=== PATIENT | female | born 1945 | race Caucasian/White ===

== ENCOUNTER 2023-03-03 13:47 | Outpatient (RCR) | payer MEDICARE, OTHER, SELFPAY | END 2023-03-03 23:59 | disposition home or self-care (01) | LOC: RPT 13:47 | PROVIDERS: ATTENDING PHYSICIAN Physician Assistant; FAMILY PHYSICIAN Nurse Practitioner Family | DX: Z47.1 Aftercare following joint replacement surgery (principal); Z96.651 Presence of right artificial knee joint | CPT/HCPCS: 97110; 97112; 97116; 97162; 97530 ==

== ENCOUNTER 2023-04-07 15:13 | Outpatient (RCR) | payer MEDICARE, OTHER, SELFPAY | END 2023-04-07 23:59 | disposition home or self-care (01) | LOC: RPT 15:13 | PROVIDERS: ATTENDING PHYSICIAN Physician Assistant; FAMILY PHYSICIAN Nurse Practitioner Family | DX: Z47.1 Aftercare following joint replacement surgery (principal); Z73.6 Limitation of activities due to disability; R26.2 Difficulty in walking, not elsewhere classified; M62.81 Muscle weakness (generalized); Z96.651 Presence of right artificial knee joint | CPT/HCPCS: 97110; 97112; 97530 ==

== ENCOUNTER 2023-04-21 15:07 | Outpatient (RCR) | payer MEDICARE, OTHER, SELFPAY | END 2023-04-22 07:33 | disposition home or self-care (01) | LOC: RPT 15:07 | PROVIDERS: ATTENDING PHYSICIAN Physician Assistant; FAMILY PHYSICIAN Nurse Practitioner Family | DX: Z47.1 Aftercare following joint replacement surgery (principal); Z96.651 Presence of right artificial knee joint | CPT/HCPCS: 97110; 97530 ==

== ENCOUNTER 2023-08-15 13:57 | Emergency (ER) | payer MEDICARE, OTHER, SELFPAY ==
[2023-08-15 14:06] VITALS: BP 171/78
[2023-08-15 14:34] LABS: % Basophils 0.3 % (0-2); % Eosinophils 0.7 % (0-6); % Immature Granulocytes 0.2 % (0-0.5); % Lymphocytes 8.3 % (20.5-51.1); % Monocytes 6.5 % (1.7-9.3); Absolute Eosinophils 0.1 10^3/uL (0-0.7); Absolute Lymphocytes 0.7 10^3/uL (1.2-3.4); Absolute Monocytes 0.6 10^3/uL (0.1-0.6); Absolute Neutrophils 7.3 10^3/uL (1.4-6.5); Hematocrit 44.3 % (37.0-47.0); Hemoglobin 15.1 g/dL (12.0-16.0); Mean Corp Hgb Conc. 34.1 g/dL (33.0-37.0); Mean Corpuscular Hgb 30.6 pg (27.0-31.0); Mean Corpuscular Volume 89.9 fL (81.0-99.0); Mean Platelet Volume 10.4 fL (7.4-10.4); Nucleated Red Blood Cells % 0 %; Platelet Count 187 10^3/uL (130-400); Red Blood Cell Count 4.93 10^6/uL (4.20-5.40); Red Cell Dist. Width 13.7 % (11.5-14.5); White Blood Cell Count 8.7 10^3/uL (4.8-10.8)
[2023-08-15 14:44] LABS: ALT (SGPT) 32 U/L (0-35); AST (SGOT) 33 U/L (14-36); Albumin 4.4 g/dl (3.5-5.0); Alkaline Phosphatase 88 U/L (38-126); Blood Urea Nitrogen 21 mg/dl (7-17); Calcium 9.4 mg/dl (8.4-10.2); Carbon Dioxide 32 mmol/L (22-30); Chloride 94 mmol/L (98-107); Glucose 90 mg/dl (70-99); Potassium 4.7 mmol/L (3.5-5.1); Sodium 132 mmol/L (135-145); Total Bilirubin 0.7 mg/dl (0.2-1.3); Total Protein 6.6 g/dl (6.3-8.2); eGFR > 60.00
[2023-08-15 17:00] VITALS: BP 138/74
[2023-08-15 17:10] VITALS: BMI 41.0
--- NOTE | 2023-08-15 17:31 | ED.GENMED ---
History of Present Illness
General
Chief Complaint: Dizziness
Source: patient
Time Seen by Provider: 08/15/23 17:16
History of Present Illness
History of Present Illness:
77yoF with a history of coronary artery disease, heart block s/p pacemaker placement, CHF, HTN, HLD, and COPD presenting with her daughter for evaluation of dizziness. Symptoms started after she ate lunch yesterday. She started to feel shaky and
lightheaded with a 'funny feeling.' She denies any chest pain but she decided to take aspirin. Symptoms lasted for several hours before resolving. She took a nap later in the day and had transient double vision after waking up. She has no visual
symptoms currently. She had another episode of shakiness and dizziness after eating breakfast this morning. Her dizziness has currently resolved and her only current symptom is a headache which she rates as a 6/10 in severity. She denies any syncope
or falls.
Past History
Past History
ED Past Medical History: CAD and HTN
ED Past Surgical History: Cardiac (, stent AVR), Cholecystectomy, Gynecological (hyster), Orthopedic (wrist) and Other (hernia reapir)
Social History
Tobacco: Former smoker
Alcohol: None
Drug: None
Personal: Single
Living: with family (son)
Employment: Retired
Family History
Family History: Other (noncontributory)
Phy Exam
Physical Exam
Physical Exam:
Chronically ill appearing female in no acute distress
General Physical Exam
General Presentation: well appearing and no apparent distress
General Skin: warm and dry
General Mental: alert
General Hydration: appears well hydrated
Course
Orders/Labs/Results
Orders:
Orders
08/15/23 14:10
Electrocardiogram (*1) Urgent
Reason for Study: Vertigo / Dizzy
EKG- Treatment ONCE
08/15/23 14:22
CMP [Comprehensive Metabolic Panel] Urgent
Complete Blood Count/With Diff Urgent
08/15/23 17:30
Acetaminophen [Tylenol] 1,000 mg PO NOW STA
08/15/23 17:34
CR Chest - 2 Views Urgent
Comment:
Reason For Exam: Dizziness
08/15/23 17:35
CT Head W/o Iv Contrast Urgent
Comment:
Reason For Exam: Dizziness, ROBERT
08/15/23 17:41
Lipase Urgent
NT-proBNP Urgent
Comment: ADD ON
Troponin I Urgent
08/15/23 18:08
Add On- LAB Urgent
Tests Added?: BNP
08/15/23 20:04
Interrogate Pacemaker- Treatment ONCE
Abnormal Lab Results
08/15/23
14:22
Absolute Neuts (auto) 7.3 H 10^3/uL
(1.4-6.5)
Absolute Lymphs (auto) 0.7 L 10^3/uL
(1.2-3.4)
Neutrophils % 84.0 H %
(42.2-75.2)
Lymphocytes % 8.3 L %
(20.5-51.1)
Sodium 132 L mmol/L
(135-145)
Chloride 94 L mmol/L
(98-107)
Carbon Dioxide 32 H mmol/L
(22-30)
BUN 21 H mg/dl
(7-17)
08/15/23 14:22
08/15/23 14:22
Vital Signs
Initial and Last Documented VS:
Initial Vital Signs
Temp Pulse Resp BP Pulse Ox
98.4 F 73 20 171/78 93
08/15/23 14:06 08/15/23 14:06 08/15/23 14:06 08/15/23 14:06 08/15/23 14:06
Last Documented Vital Signs
Temp Pulse Resp BP Pulse Ox
98.4 F 77 24 182/95 92
08/15/23 14:06 08/15/23 20:45 08/15/23 20:45 08/15/23 19:00 08/15/23 20:45
MDM/Problems Addressed
Differential Diagnosis Includes:
77yoF here with multiple vague symptoms. C/o feeling shaky, lightheaded, and a 'funny feeling.' Occurred 2x after eating since yesterday. No CP/SOB. She is hypertensive with otherwise normal vitals. She is well appearing in no distress. Exam is
reassuring. Differential diagnosis includes but is not limited to: dehydration, ACS, electrolyte abnormality, arrhythmia
Initial ED plan: Check cardiac labs, EKG, CXR, and CT head. Interrogate pacemaker.
*Critical Care Note
Total Time (30-74mins, 75-104mins- exclusive of procedures): Not Applicable
Update Note
Update Note:
Labs overall unremarkable. EKG shows paced rhythm and troponin is within normal limits. CT head is negative for acute findings. No pulmonary edema on CXR. Pacemaker interrogation showed a 7 beat episode of nonsustained VT on 08/11/23. This was
discussed with lathe operator Dr. King who states that this would not account for her symptoms and does not require any additional intervention. Patient feeling well on reassessment. No indication for admission. Advised close f/u with PCP and ED
return precautions discussed. Patient expressed understanding and is agreeable to plan. Patient discharged in stable condition.
ED Attending Note
-
Portions of this chart may have been created with voice recognition software.� Occasional wrong word or��sound alike� substitutions may have occurred due to the inherent limitations of voice recognition software.
Discharge Plan
Departure
Patient Disposition: Home (Routine Discharge)
Date of Disposition: 08/15/23
Time of Disposition: 20:54
Patient with high blood pressure during this ER visit?: Yes
Discharge Problem:
Dizziness, nonspecific
Instructions: Dizziness
Prescriptions:
No Action
ascorbic acid (vitamin C) [Vitamin C] 500 MG tablet
1,000 mg PO DAILY Qty: 1 0RF
biotin 2,500 MCG capsule
5,000 mcg PO DAILY Qty: 1 0RF
cholecalciferol (vitamin D3) 2,000 UNITS tablet
2,000 unit PO DAILY Qty: 1 0RF
zinc acetate 50 mg (zinc) Capsule
50 mg PO DAILY
acetaminophen [Acetaminophen Extra Strength] 500 mg Tablet
1,000 mg PO Q6HPRN PRN (Reason: mild pain)
melatonin 5 mg Tablet
10 mg PO HS
multivitamin Tablet
1 tab PO DAILY
spironolactone 25 mg Tablet
25 mg PO MOWEFR
loratadine [Claritin] 10 mg Tablet
10 mg PO DAILY
aspirin 325 mg Tablet
325 mg PO DAILY 28 Days Qty: 28 0RF
Patient Comments:
12/15/2022: take for 4 weeks then decrease to 81mg daily
docusate sodium 100 mg Capsule
100 mg PO BID 7 Days Qty: 14 0RF
irbesartan 300 MG tablet
300 mg PO DAILY Qty: 1 0RF
Rx Instructions:
Hold if systolic BP less than 130 while in post surgical narcotics.
fluticasone propionate 50 mcg/actuation [place],Suspension
1 spray INTRANASAL DAILY PRN (Reason: nasal drip /allergies)
furosemide 40 MG tablet
40 mg PO DAILY Qty: 30 0RF
acyclovir 400 mg tablet
400 mg PO BID
tramadol 50 mg tablet
50 mg PO TIDPRN PRN (Reason: moderate pain)
Patient Comments:
12/15/2022: last filled 12/03/22, 21 tabs for 7 days from [id number]
oxycodone 5 mg tablet
5 mg PO Q6HPRN PRN (Reason: moderate pain)
Patient Comments:
12/15/2022: last filled 12/10/22, 30 tabs for 5 days from [id number]
guaifenesin 600 mg Tablet Extended Release 12hr
600 mg PO Q12 7 Days Qty: 14 0RF
albuterol sulfate [Ventolin HFA] 90 mcg/actuation HFA aerosol inhaler
2 puff inhalation Q6H PRN (Reason: shortness of breath or wheezing) 30 Days Qty: 6.7 0RF
Referrals:
Sadaf Piper CRNP [Family Provider] -
Activity Restrictions/Additional Instructions:
Please follow-up with your family doctor in 2-3 days. Return to the ER with any new or worsening symptoms.
Interventions
Interventions:
*Risk Screen - Suicide Last Done: 08/15/23 18:01
*General Assessment Last Done: 08/15/23 18:01
*Neglect/Abuse Screening Last Done: 08/15/23 18:01
ED- Fall Risk Assessment Last Done: 08/15/23 17:10
*Nursing Disposition Last Done: 08/15/23 21:10
ED- Neurological Assessment Last Done: 08/15/23 17:10
ED- Cardiac Assessment Last Done: 08/15/23 17:10
ED Swallowing Screen Last Done: 08/15/23 17:10
Discharge Date and Time
Discharge Date/Time: 08/15/23 21:11
Print Language: VIETNAMESE
[2023-08-15 18:14] LABS: Lipase 48 U/L (23-300)
[2023-08-15 18:25] LABS: Troponin I 0.024 ng/ml
[2023-08-15 18:26] VITALS: BP 180/80
[2023-08-15 18:28] VITALS: BP 165/77
[2023-08-15] MEDS: TYLENOL 1000 MG PO (18:29)
[2023-08-15 19:00] VITALS: BP 182/95
[2023-08-15 19:00] LABS: NT-proBNP 1760 pg/ml
== END 2023-08-15 21:11 | disposition home or self-care (01) ==
LOC: EMR 13:57
PROVIDERS: Emergency Medicine; Physician Assistant; EMERGENCY PHYSICIAN Emergency Medicine; FAMILY PHYSICIAN Nurse Practitioner Family
DX: R42 Dizziness and giddiness (principal); I25.10 Atherosclerotic heart disease of native coronary artery without angina pectoris; I45.9 Conduction disorder, unspecified; I11.0 Hypertensive heart disease with heart failure; I50.9 Heart failure, unspecified; E78.00 Pure hypercholesterolemia, unspecified; H53.2 Diplopia; Z87.891 Personal history of nicotine dependence; Z90.49 Acquired absence of other specified parts of digestive tract; Z95.0 Presence of cardiac pacemaker; Z95.5 Presence of coronary angioplasty implant and graft
CPT/HCPCS: 99284; 93280; 70450; 71046; 80053; 83690; 83880; 84484; 85025; 93005

== ENCOUNTER 2024-02-24 16:35 | Inpatient (IN) | payer MEDICARE, OTHER, SELFPAY ==
[2024-02-24 12:35] VITALS: BP 123/54
[2024-02-24 13:04] LABS: % Basophils 0.3 % (0-2); % Eosinophils 0.1 % (0-6); % Immature Granulocytes 0.5 % (0-0.5); % Lymphocytes 4.6 % (20.5-51.1); % Monocytes 11.5 % (1.7-9.3); Absolute Immature Granulocytes 0.1 10^3/uL (0-0.05); Absolute Lymphocytes 0.5 10^3/uL (1.2-3.4); Absolute Monocytes 1.2 10^3/uL (0.1-0.6); Absolute Neutrophils 8.8 10^3/uL (1.4-6.5); Hematocrit 40.3 % (37.0-47.0); Hemoglobin 13.3 g/dL (12.0-16.0); Mean Corpuscular Hgb 29.4 pg (27.0-31.0); Mean Platelet Volume 9.8 fL (7.4-10.4); Nucleated Red Blood Cells % 0 %; Platelet Count 221 10^3/uL (130-400); Red Blood Cell Count 4.53 10^6/uL (4.20-5.40); Red Cell Dist. Width 14.5 % (11.5-14.5); White Blood Cell Count 10.6 10^3/uL (4.8-10.8)
[2024-02-24 13:22] LABS: ALT (SGPT) 39 U/L (0-35); AST (SGOT) 35 U/L (14-36); Albumin 3.5 g/dl (3.5-5.0); Alkaline Phosphatase 97 U/L (38-126); Blood Urea Nitrogen 21 mg/dl (7-17); Calcium 8.3 mg/dl (8.4-10.2); Carbon Dioxide 30 mmol/L (22-30); Chloride 96 mmol/L (98-107); Glucose 105 mg/dl (70-99); Potassium 3.7 mmol/L (3.5-5.1); Sodium 133 mmol/L (135-145); Total Bilirubin 0.7 mg/dl (0.2-1.3); Total Protein 5.9 g/dl (6.3-8.2); eGFR > 60.00
[2024-02-24 13:33] LABS: NT-proBNP 2540 pg/ml; Troponin I 0.061 ng/ml
--- NOTE | 2024-02-24 13:55 | ED.GENMED ---
History of Present Illness
General
Chief Complaint: Abnormal Lab Value
Source: patient
Exam Limitations: none
Time Seen by Provider: 02/24/24 13:27
History of Present Illness
History of Present Illness:
78-year-old female with history of CHF, aortic stenosis, hypertension, pacemaker presents with increased leg edema swelling shortness of breath and dyspnea on exertion. Seen recently by the family doctor and sent in for evaluation. She had labs
drawn as an outpatient which demonstrated elevated BNP and troponin. She denies chest pain. She is not anticoagulated. Followed by a wire rigger at [place], Dr. Bailey.
Past History
Past History
ED Past Medical History: CAD and HTN
ED Past Surgical History: Cardiac (, stent AVR), Cholecystectomy, Gynecological (hyster), Orthopedic (wrist) and Other (hernia reapir)
Social History
Tobacco: Former smoker
Alcohol: None
Drug: None
Personal: Single
Living: with family (son)
Employment: Retired
Family History
Family History: Other (noncontributory)
Phy Exam
Physical Exam
Physical Exam:
General: Well-appearing obese female with increased work of breathing
HEENT: Normal cephalic atraumatic heart: Regular rate and rhythm no murmurs
Lungs: Clear no wheeze
Abdomen is soft nontender nondistended
Extremities: Significant pitting edema with chronic venous changes noted to the lower extremities. There is open wounds to the posterior calves.
Vascular: 2+ dorsalis pedis pulse bilateral feet
Musculoskeletal exam: Left heel is tender to the touch soft tissue swelling
Sepsis
Sepsis Screening
Sepsis Assessment: Sepsis Ruled Out
Sepsis Screen
Sepsis Screen: Sepsis Ruled Out
Date: 02/24/24
Time: 15:12
Course
Orders/Labs/Results
Orders:
Orders
02/24/24 12:33
Electrocardiogram (*1) Urgent
Reason for Study: Shortness of Breath
EKG- Treatment ONCE
02/24/24 12:42
Electrocardiogram (*1) Urgent
Reason for Study: Other
Other Reason for Exam: Respiratory Distress
Cardiac Monitoring- Treatment ONCE
EKG- Treatment ONCE
IV Insert/Care/Rem.- Treatment PRN
CR Chest - 2 Views Urgent
Comment:
Reason For Exam: respiratory distress
O2 Therapy [RESP] Urgent
Titrate/Wean O2 to maintain O2 sat greater than (%): 93
Special Instructions: TO MAINTAIN CONTINUOUS O2 SATS >/= 93%
Pulse Ox/cont/shift [RESP] Urgent
Quantity: 1
Special Instructions: continuous pulse ox
02/24/24 12:50
Complete Blood Count/With Diff Urgent
Comprehensive Metabolic Panel Urgent
NT-proBNP Urgent
Troponin I Urgent
02/24/24 13:46
CR Heel/os Calcis - Left 2 Vw* Urgent
Comment:
Reason For Exam: pain after fall
02/24/24 15:07
Acetaminophen [Tylenol] 650 mg PO NOW STA
Furosemide [Lasix] 40 mg IV NOW STA
Abnormal Lab Results
02/24/24
12:50
Abs Immat Gran (auto) 0.1 H 10^3/uL
(0-0.05)
Absolute Neuts (auto) 8.8 H 10^3/uL
(1.4-6.5)
Absolute Lymphs (auto) 0.5 L 10^3/uL
(1.2-3.4)
Absolute Monos (auto) 1.2 H 10^3/uL
(0.1-0.6)
Neutrophils % 83.0 H %
(42.2-75.2)
Lymphocytes % 4.6 L %
(20.5-51.1)
Monocytes % 11.5 H %
(1.7-9.3)
Sodium 133 L mmol/L
(135-145)
Chloride 96 L mmol/L
(98-107)
BUN 21 H mg/dl
(7-17)
Glucose 105 H mg/dl
(70-99)
Calcium 8.3 L mg/dl
(8.4-10.2)
ALT 39 H U/L
(0-35)
Troponin I 0.061 H* ng/ml
Total Protein 5.9 L g/dl
(6.3-8.2)
02/24/24 12:50
02/24/24 12:50
Vital Signs
Initial and Last Documented VS:
Initial Vital Signs
Temp Pulse Resp BP Pulse Ox
98 F 66 18 123/54 95
02/24/24 12:35 02/24/24 12:35 02/24/24 12:35 02/24/24 12:35 02/24/24 12:35
Last Documented Vital Signs
Temp Pulse Resp BP Pulse Ox
98 F 77 32 123/54 97
02/24/24 12:35 02/24/24 13:45 02/24/24 13:43 02/24/24 12:35 02/24/24 13:45
MDM/Problems Addressed
Differential Diagnosis Includes:
Patient with history of CHF presents with increased leg swelling dyspnea on exertion and shortness of breath. Consider CHF flare. She has been weak recently. 3 days ago she fell in her house and has been left with left heel pain since she fell.
Left heel x-rays were ordered. Chest x-ray pending. BNP elevated. Troponin is also elevated at 0.061.
I suspect main etiology is volume overload secondary to CHF.
*Critical Care Note
Total Time (30-74mins, 75-104mins- exclusive of procedures): Not Applicable
Update Note
Update Note:
Chest x-ray shows cardiomegaly. BNP is elevated troponin slightly elevated. Patient not having chest discomfort. Do not suspect ACS. Suspect more CHF flare. Lasix ordered through the IV. Will admit to hospital
ED Attending Note
-
Portions of this chart may have been created with voice recognition software.� Occasional wrong word or��sound alike� substitutions may have occurred due to the inherent limitations of voice recognition software.
Discharge Plan
Departure
Patient Disposition: Admit
Date of Disposition: 02/24/24
Time of Disposition: 15:11
Presentation/result/management discussed w/ accepting MD/DO: Hospitalist
Discharge Problem:
CHF (congestive heart failure)
Prescriptions:
No Action
acetaminophen [Acetaminophen Extra Strength] 500 mg Tablet
1,000 mg PO HSPRN PRN (Reason: mild pain)
melatonin 5 mg Tablet
10 mg PO HS
spironolactone 25 mg Tablet
25 mg PO MOWEFR
irbesartan 300 MG tablet
300 mg PO DAILY Qty: 1 0RF
furosemide 40 MG tablet
40 mg PO DAILY Qty: 30 0RF
tramadol 50 mg tablet
25 mg PO DAILYPRN PRN (Reason: moderate pain)
cephalexin 500 mg Capsule
500 mg PO BID
docusate sodium 100 mg capsule
100 mg PO BIDPRN PRN (Reason: constipation)
ibuprofen [Motrin] 400 mg Tablet
400 mg PO DAILYPRN PRN (Reason: mild pain)
Referrals:
Sadaf Piper CRNP [Family Provider] -
Interventions
Interventions:
*Risk Screen - Suicide Last Done: 02/24/24 12:35
*General Assessment Last Done: 02/24/24 12:35
*Neglect/Abuse Screening Last Done: 02/24/24 12:35
ED- Fall Risk Assessment Last Done: 02/24/24 13:36
*ED COVID-19 Vaccine History Last Done: 02/24/24 13:36
Discharge Date and Time
Print Language: IRANIAN
[2024-02-24] MEDS: LASIX 40 MG IV (15:16)
[2024-02-24] MEDS: TYLENOL 650 MG PO (15:16)
--- NOTE | 2024-02-24 15:50 | HPS.HSE ---
Family Physician
-
Family Physician: NATY Lind
Chief Complaint
-
shortness of breath
History of Present Illness
Ms. Yasmin Webster is a 78 yo woman with hx CHB s/p PPM 12/30, HFpEF, presents to the ER with increased LE swelling and shortness of breath.
She states that she has had worsening shortness of breath over the past month. She does not weigh herself every day. She denies missing Lasix doses. 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
She lives alone, uses a walker. She has bilateral lower extremity wounds and has a home wound care VN who suggested she come to the ER today.
Patient denies chest pain. No headache, no fevers. No nausea/vomiting/diarrhea. No adominal pain.
Medical History
Past Medical History
Past Medical History: Reports Other
Additional Past Medical History:
1. Osteoarthritis,
2. Hypertension.
3. Coronary artery disease/myocardial infarction, status post PCI
� � with complicated stent to LAD, 08/2020, with urgent
� � pericardiocentesis and small vessel distal embolization.
4. History of non-PR troponin elevation, secondary to hypertensive
� � urgency 08/2021.
5. Chronic left bundle branch block.
6. PVCs, asymptomatic.
7. Nonsustained ventricular tachycardia.
8. Congestive heart failure, preserved ejection fraction.
9. Severe aortic stenosis, status post bioprosthetic TAVR.
10. Chronic venous insufficiency with left lower extremity ulcer,
� � � 11/2021, treated by [facility].
11. Restrictive lung disease.
12. 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
� � � respiratory failure and tracheostomy with residual tracheal
� � � stenosis.
13. COVID-19 pneumonia 06/2021.
14. Chronic dyspnea on exertion.
15. GERD.
16. Peripheral neuropathy.
17. Uterine and vaginal prolapse, status post abdominal
� � � sacrocolpopexy 2010.
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
19. Right-sided Efrain syndrome.
Past Surgical History: Reports Other
Additional Past Surgical History:
. Left total knee arthroplasty
2. Left wrist open reduction internal fixation.
3. PCI with complicated LAD stent with urgent pericardiocentesis
� � and small vessel distal embolization.
4. Bioprosthetic TAVR.
5. Cholecystectomy.
6. Incisional hernia repair.
7. Hysterectomy.
8. Abdominal sacrocolpopexy.
9. Tracheostomy and subsequent removal.
10.right total knee replacement
Social History
Tobacco: Former Smoker
Alcohol: None
Drug: None
Personal: Single
Living: Alone
Employment: Retired
Family History
Family History: Not pertinent
Allergies / Home Medications
Allergies reflects when Allergies were last updated in [email or web address].
Home Medications with original date entered in [email or web address]
Allergy/Medication List:
Allergies
Allergy/AdvReac Type Severity Reaction Status Date / Time
ciprofloxacin Allergy tendon Verified 08/15/23 14:07
rupture
house dust Allergy sneezing, Verified 08/15/23 14:07
nasal
drip,
congestion
house dust mite Allergy sneezing, Verified 08/15/23 14:07
nasal
drip,
congestion
levofloxacin Allergy Tendon Verified 08/15/23 14:07
rupture
mold Allergy sneezing, Verified 08/15/23 14:07
nasal
drip,
congestion
moxifloxacin Allergy Tendon Verified 08/15/23 14:07
rupture
mupirocin Allergy Pharmacy Verified 08/15/23 14:07
to Review
pollen extracts Allergy sneezing, Verified 08/15/23 14:07
nasal
drip,
congestion
Quinolones Allergy Tendon Verified 08/15/23 14:07
rupture
Home Medications
acetaminophen 500 mg tablet (Acetaminophen Extra Strength) 1,000 mg PO HSPRN PRN mild pain 08/12/22
melatonin 5 mg tablet 10 mg PO HS Sleep 08/12/22
furosemide 40 mg tablet 40 mg PO DAILY #30 tabs 08/24/22
spironolactone 25 mg tablet 25 mg PO MOWEFR Fluid Retention/Swelling 10/29/22
irbesartan 300 mg tablet 300 mg PO DAILY Blood pressure #1 tab 11/28/22
tramadol 50 mg tablet 25 mg PO DAILYPRN PRN moderate pain 12/15/22
cephalexin 500 mg capsule 500 mg PO BID 02/24/24
docusate sodium 100 mg capsule 100 mg PO BIDPRN PRN constipation 02/24/24
ibuprofen 400 mg tablet 400 mg PO DAILYPRN PRN mild pain 02/24/24
Review of Systems
-
History Source: Patient
A 12 point ROS was completed and negative except as noted: Yes
Physical Exam
Vital Signs
Vital Signs
Temp Pulse Resp BP Pulse Ox
98 F 77 32 123/54 97
02/24/24 12:35 02/24/24 13:45 02/24/24 13:43 02/24/24 12:35 02/24/24 13:45
Physical Exam
General: No Apparent Distress and Obese
HEENT: PERRLA
Respiratory: Wheezes (end expiratory scattered)
Cardiac: S1/S2 and Regular Rhythm
GI: Soft and Non Tender
Musculoskeletal: Edema, Left Lower Extremity and Edema, Right Lower Extremity
Skin: Other (venous stasis discoloration with ulcers b/l LE )
Neuro: AO x 3
Psych: Calm
Laboratory Results
-
02/24/24 12:50
02/24/24 12:50
Laboratory Results
Total Bilirubin 0.7 mg/dl (0.2-1.3) 02/24/24 12:50
AST 35 U/L (14-36) 02/24/24 12:50
ALT 39 U/L (0-35) H 02/24/24 12:50
Alkaline Phosphatase 97 U/L (38-126) 02/24/24 12:50
Troponin I 0.061 ng/ml H* 02/24/24 12:50
Data Reviewed
-
Diagnostic Radiology: Report Reviewed by me
Lab Data: Labs Reviewed by me
Impression/Plan
-
Ms. Yasmin Webster is a 78 yo woman with hx CHB s/p PPM 12/30, HFpEF, s/p TAVR presents to the ER with increased LE swelling and shortness of breath found to be in acute heart failure exacerbation.
Triage VS: T 98, P 66, RR 18, BP 123/54, SpO2 95%
LABS: WBC 10.6, Hg 13.3, PLT 221, Na 133, K+ 3.7, Cl 96, CO2 30, BUN 21, Cr 0.6, Glucose 105, Ca 8.3, T. Bili 0.7, AST 35, ALT 39, Alk Phos 97
Trop 0.061
BNP 2540
CXR
IMPRESSION:
No acute cardiopulmonary process.
Os Calcis X-Ray
IMPRESSION:
No acute fracture or dislocation. Moderate plantar and dorsal calcaneal enthesopathy, similar to prior. Scattered degenerative changes of the visualized joints. Vascular calcifications present.
Heart Failure Preserved EF Acute Exacerbation
Non Ischemic Troponin Elevation
Essential HTN
-she is on Lasix 40mg PO QD at home
-last TTE 08/29 with EF 60-65%, well seated TAVR with trace AR
-s/p Lasix 40mg IV in ER, will continue BID
-admit to telemetry
-repeat TTE
-trend Troponin
-TELETYPESETTER MONITOR Spironolactone
-TELETYPESETTER MONITOR Irbesartan
RLE Cellulitis versus venous stasis
-complete TELETYPESETTER MONITOR Keflex course - to end tomorrow
CHB s/p PPM 12/30
s/p TAVR
-repeat TTE as above
DVT PPx Lovenox subQ
DNR - confirmed on admission
76 minutes spent on patient care
--- NOTE | 2024-02-24 16:25 | CON.CAR ---
Addendum entered and electronically signed by Julio Cesar Leyva MD 02/24/24 18:08:
I saw and examined the patient.
The Mortgage Loan Reviewer's note was reviewed and I agree with the note.
Comment: Briefly, 78-year-old woman past medical history of heart failure with preserved ejection fraction, s/p TAVR, CAD with prior PCI and CHB s/p PPM
Patient presents with progressively worsening lower extremity edema, weight gain and dyspnea
Tense LE edema on exam with overlying skin ulceration
Recommend IV lasix BID
Cont Aldactone
Follow daily weights, Cr and electrolytes
Repeat TTE
Tells me she was previously on 40mg daily of lasix, will likely need higher dose on discharge
Due to leg wounds likely not a good candidate for SGLT2
Rest per Mickie Carpenter
Original Note:
Consultation
Consultation Request
Date/Time Consultation Requested: 02/24/2024, 1615
Date/Time Consultation Performed: 02/24/2024, 1625
Requesting Provider: Dr Patton
Performing Provider: NATY Wesley for Dr Leyva
Reason for Consultation: LE edema, SOB
Medical History
-
Chief Complaint: dizzy/sob
History of Present Illness:
78-year-old female with complicated past medical history including CAD/[place], s/p PCI w/ complicated stent to LAD 08/2020, with urgent pericardiocentesis w/ small vessel distal embolization, HFpEF, left bundle branch block, s/p TAVR 2010, coronary
artery disease, SVT, hypertension, complete heart block 12/2022 s/p Medtronic dual chamber pacemaker utilizing LBBB for conduction system pacing, restrictive lung disease, left total knee arthroplasty November,, chronic venous insufficiency.
She presents today with worsening shortness of breath and increasing LE edema. She has B/L LE wounds and follows with home wound care. She does not weigh herself daily and is not sure if she has gained weight. Was supposed to have appointment
with her radiology transporter, Dr. Jacob Bailey, this week but could not get out of the house so rescheduled.
Admits to orthopnea, PND. No fevers, chills. No palps, lightheadedness, syncope. No chest pain
ER evaluation:
EKG: A sensed V paced
BUN/creatinine 21/0.6, proBNP 2540, hemoglobin 13.3
Troponin 0.061
Chest x-ray: No acute cardiopulmonary process, no overt pulmonary vascular congestion
Current Meds per Dr. Bailey last office visit note: Spironolactone 25 mg 3 times a week, irbesartan 300 mg daily, furosemide 40 mg daily.
Pacemaker interrogation 07/14/2023: 99% V paced, 0.4% a paced. No A-fib, brief high ventricular rate events consistent with nonsustained VT less than 2 seconds. Battery longevity 11.5 years
Past medical history:
CAD status post complicated LAD PCI 09/03/2020
Urgent pericardiocentesis and small vessel distal embolization 09/03/2020
Chronic heart failure preserved EF
Left transfemoral TAVR 26 mm Baumann BJ 3 ultra for severe 12/04/2020
Heart block with A-V dissociation status post TAVR
Complete heart block with new right bundle branch block status post Medtronic dual-chamber pacemaker utilizing left bundle branch for conduction system pacing 12/16/2022
Nonsustained VT/left bundle branch block
Legionella PNA 02/2018 w/ VDRF and trach w/ residual tracheal stenosis
chronic venous stasis
Efrain syndrome
OA s/p R TKA 11/2022
HTN
hyperlipidemia
obesity
former smoker
Past Medical History
Past Medical History: Arrhythmias (Supraventricular tachycardia, left bundle branch block, NSVT), CAD (Complex proximal LAD PCI complicated by wire perforation, treated successfully with pericardial drain and coil embolization 2020), CHF (Chronic
heart failure with preserved ejection fraction), HTN, Hypercholesterolemia, Valvular Disease (Status post Baumann BJ S3 TAVR #26 2020) and Other (History of legionnaires pneumonia. History of tracheostomy 2018)
Past Surgical History: Cardiac (TAVR 2020) and Orthopedic (RTKA 11/29)
Social History
Tobacco: Non-Smoker
Alcohol: None
Drug: None
Living: With Family
Employment: Retired
Family History
Family History: CAD and Hypertension
Allergies / Home Medications
Allergy/AdvReac Type Severity Reaction Status Date / Time
ciprofloxacin Allergy tendon Verified 08/15/23 14:07
rupture
house dust Allergy sneezing, Verified 08/15/23 14:07
nasal
drip,
congestion
house dust mite Allergy sneezing, Verified 08/15/23 14:07
nasal
drip,
congestion
levofloxacin Allergy Tendon Verified 08/15/23 14:07
rupture
mold Allergy sneezing, Verified 08/15/23 14:07
nasal
drip,
congestion
moxifloxacin Allergy Tendon Verified 08/15/23 14:07
rupture
mupirocin Allergy Pharmacy Verified 08/15/23 14:07
to Review
pollen extracts Allergy sneezing, Verified 08/15/23 14:07
nasal
drip,
congestion
Quinolones Allergy Tendon Verified 08/15/23 14:07
rupture
�Medication �Instructions �Recorded �Confirmed �Type
acetaminophen 500 mg tablet 1,000 mg PO HSPRN PRN mild pain 08/12/22 02/24/24 History
(Acetaminophen Extra Strength)
melatonin 5 mg tablet 10 mg PO HS Sleep 08/12/22 02/24/24 History
furosemide 40 mg tablet 40 mg PO DAILY #30 tabs 08/24/22 02/24/24 Rx
spironolactone 25 mg tablet 25 mg PO MOWEFR Fluid 10/29/22 02/24/24 History
Retention/Swelling
irbesartan 300 mg tablet 300 mg PO DAILY Blood pressure #1 11/28/22 02/24/24 Rx
tab
tramadol 50 mg tablet 25 mg PO DAILYPRN PRN moderate pain 12/15/22 02/24/24 History
cephalexin 500 mg capsule 500 mg PO BID 02/24/24 02/24/24 History
docusate sodium 100 mg capsule 100 mg PO BIDPRN PRN constipation 02/24/24 02/24/24 History
ibuprofen 400 mg tablet 400 mg PO DAILYPRN PRN mild pain 02/24/24 02/24/24 History
Review of Systems
-
History Source: Patient
Constitutional: No Symptoms
Physical Exam
Vital Signs
Temp Pulse Resp BP Pulse Ox
98 F 77 32 123/54 97
02/24/24 12:35 02/24/24 13:45 02/24/24 13:43 02/24/24 12:35 02/24/24 13:45
Lab Results
02/24/24 12:50
02/24/24 12:50
Troponin I 0.061 ng/ml H* 02/24/24 12:50
Axu-T-Bkncqvihgag Pept 2540 pg/ml 02/24/24 12:50
GEN: No distress, awake, Ox3
HEENT: supple, anicteric, mmm
LUNGS: Faint expiratory wheeze
CV: Reg, S1/S2, 1/6 syst LSB
ABD: soft, BS+, NT/ND
EXT: 3+ lower extremity edema to thighs, venous stasis color changes, large wound right lateral hayden with serous sanguinous drainage. Feet warm
NEURO: Gross non-focal
Impression / Plan
-
Primary Back Shoe Cutter: Dr. Bailey of [facility]
Assessment:
acute on chronic HF p EF
chronic venous insufficiency w/ profound LE edema and RLE wound
s/p Medtronic dual-chamber permanent pacemaker utilizing the left bundle branch for conduction system pacing 12/16/2022 due to CHB
RBBB
OA s/p R TKA 11/25/22
hx NSVT/LBBB
s/p left Transfemoral TAVR 26mm Baumann Bj 3 Ultra for severe on 12/04/20
h/o heart block with A-V dissociation s/p TAVR
CAD s/p complicated LAD PCI 09/03/20
h/o urgent pericardiocentesis and small vessel distal embolization 09/03/20
HTN
HLD
History of NSVT by prior holter monitor
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
History of Gastrostomy
Peripheral neuropathy
Former smoker
Chronic back pain
History of Hysterectomy
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
Osteoarthritis of B/L knees s/p L TKR 08/2021
Obesity
Efrain syndrome
Lexiscan stress test at [facility]: Mild apical ischemia, preserved EF, intermediate risk
Echo 08/29: EF 60-65%, status post #26 TAVR R with mean gradient of 10, trace aortic regurgitation, trace TR with PA pressure 43
Plan:
- She presents today 02/24/2024 with worsening shortness of breath and increasing LE edema. She has B/L LE wounds and follows with home wound care. She does not weigh herself daily and is not sure if she has gained weight. Was supposed to have
appointment with her radiology transporter, Dr. Jacob Bailey, this week but could not get out of the house due to immobility from LE edema.
Admits to orthopnea, PND. No fevers, chills. No palps, lightheadedness, syncope. No chest pain
EKG: A sensed, Vpaced
-Appears volume overloaded with significant lower extremity edema, wounds, and elevated BNP
-IV diuresis, Lasix 40 mg IV twice daily
-Daily weights
-Continue outpatient spironolactone, irbesartan
-Trend troponin
-Eventual repeat echo, does not have to be done over the weekend
-Treatment for right lower extremity cellulitis per primary team
-Wound care consult
Data Reviewed
-
EKG: Tracing Personally Visualized and interpreted
Labs: Labs Reviewed by me
[2024-02-24] MEDS: ULTRAM 25 MG PO ×2 (16:31→18:02)
[2024-02-24] MEDS: LOVENOX 40 MG SC (17:54)
[2024-02-24] MEDS: KEFLEX 500 MG PO ×2 (17:54→21:02)
[2024-02-24 18:10] VITALS: BP 131/72
[2024-02-24 18:11] VITALS: BMI 40.6
[2024-02-24 18:39] LABS: TSH Reflex To Free T4 2.49 uIU/ml (0.47-4.68)
[2024-02-24] MEDS: ULTRAM 50 MG PO (19:42)
[2024-02-24 19:44] VITALS: BP 122/64
[2024-02-24] MEDS: MELATONIN 10 MG PO (21:02)
[2024-02-24 21:58] LABS: Troponin I 0.055 ng/ml
[2024-02-24 23:52] VITALS: BP 129/65
[2024-02-25 03:30] VITALS: BP 121/59
[2024-02-25 05:17] LABS: Troponin I 0.041 ng/ml
[2024-02-25 05:53] VITALS: BMI 41.0
[2024-02-25] MEDS: ULTRAM 50 MG PO ×3 (06:42→22:53)
[2024-02-25 07:30] VITALS: BP 117/49
[2024-02-25 10:26] LABS: ALT (SGPT) 41 U/L (0-35); AST (SGOT) 40 U/L (14-36); Alkaline Phosphatase 96 U/L (38-126); Blood Urea Nitrogen 18 mg/dl (7-17); Calcium 7.9 mg/dl (8.4-10.2); Carbon Dioxide 34 mmol/L (22-30); Chloride 93 mmol/L (98-107); Estimated Creatinine Clearance 93 ml/min; Glucose 101 mg/dl (70-99); HDL Cholesterol 45 mg/dl; LDL Cholesterol, Calculated 66 mg/dl; Potassium 3.6 mmol/L (3.5-5.1); Sodium 132 mmol/L (135-145); Total Bilirubin 0.7 mg/dl (0.2-1.3); Total Cholesterol 123 mg/dl (50-199); Total Protein 5.4 g/dl (6.3-8.2); Triglyceride 64 mg/dl (10-149); Very Low Density Lipoprotein 12 mg/dl (0-30); eGFR > 60.00
[2024-02-25] MEDS: LASIX 40 MG IV (11:17)
[2024-02-25] MEDS: AVAPRO 300 MG PO (11:17)
[2024-02-25] MEDS: KEFLEX 500 MG PO (11:17)
[2024-02-25 11:44] VITALS: BP 133/64
--- NOTE | 2024-02-25 13:31 | CM ---
Patient seen bedside, initial assessment completed. Patient resides independently in an apartment (first floor), one step to enter. Patient has a walker at home, current with [facility]. Patient currently on O2, does not have home O2. Patient reports [facility] in past. Patient confirms PCP Sadaf Piper, pharmacy [facility], confirms prescription coverage. Patient may benefit from PT evaluations. CM will continue to follow for all discharge planning needs.
Plan; home with [facility], pt may benefit from PT evals
--- NOTE | 2024-02-25 13:34 | W.PN.HOSP.TC ---
Today's Communication/Plan
-
Abx, wound culture, wound care
IV Lasix continues
Assessment / Plan
Assessment / Plan
Assessment:
Acute on chronic HFpEF
Non Ischemic Troponin Elevation
Essential HTN
-she is on Lasix 40mg PO QD at home
-last TTE 08/29 with EF 60-65%, well seated TAVR with trace AR
-s/p Lasix 40mg IV in ER, will continue BID
-follow telemetry
-repeat TTE routinely
-trend Troponin
-TIN RECOVERY WORKER Spironolactone
-TIN RECOVERY WORKER Irbesartan
bilateral venous stasis with ulcerations
RLE cellulitis > LLE cellulitis
- check wound culture, MRSA swab
- wound care ordered; formal eval Tuesday
- start Ancef/Doxy, day 1
CHB s/p PPM 12/30
s/p TAVR
-repeat TTE routinely
DVT ppx: Lovenox
Code: DNR
Anticipated Discharge: > 48 hours
Subjective/Interval History
-
Date of Service: February 25, 2024
reports bilateral leg/foot pains from wounds, chronic heel pain
Objective Data
-
Labs:
Laboratory Results
02/25/24 02/25/24
06:25 09:47
Sodium Cancelled 132 L
Potassium Cancelled 3.6
Chloride Cancelled 93 L
Carbon Dioxide Cancelled 34 H
BUN Cancelled 18 H
Creatinine Cancelled 0.5 L
Glucose Cancelled 101 H
Calcium Cancelled 7.9 L
Total Bilirubin Cancelled 0.7
AST Cancelled 40 H
ALT Cancelled 41 H
Alkaline Phosphatase Cancelled 96
Vital Signs:
Vital Signs
Temp Pulse Resp BP Pulse Ox
97.7 F 69 18 133/64 92
02/25/24 11:44 02/25/24 11:44 02/25/24 11:44 02/25/24 11:44 02/25/24 11:44
I&O
02/24/24 02/25/24 02/26/24
06:59 06:59 06:59
Intake Total 480 / 480
Output Total 500 / 500
Balance -20 / -20
Physical Exam
-
General: No Apparent Distress
HEENT: Normocephalic and Atraumatic
Respiratory: Negative Wheezes
Cardiac: Regular Rhythm
GI: Other (bilateral posterior calf wounds, pus drainage)
Genito-urinary: No Costovertebral Tender
Musculoskeletal: Edema, Right Lower Extrem and Edema, Left Lower Extrem
Neuro: AO x 3
Hematologic / Lymphatic: No Lymphadenopathy
Psych: Calm
Data Reviewed
-
Total Time Spent with Patient (in minutes): 51
Labs: Labs Reviewed by me
[2024-02-25] MEDS: ANCEF 5 IV ×2 (14:37→22:54)
--- NOTE | 2024-02-25 14:38 | W.PN.CARDCBS ---
Today's Communication / Plan
-
Intensify diuretics
Impression / Plan
-
Primary Rn Relief Charge: Dr. Bailey of [facility]
Assessment:
acute on chronic HF p EF
chronic venous insufficiency w/ profound LE edema and RLE wound
s/p Medtronic dual-chamber permanent pacemaker utilizing the left bundle branch for conduction system pacing 12/16/2022 due to CHB
RBBB
OA s/p R TKA 11/25/22
hx NSVT/LBBB
s/p left Transfemoral TAVR 26mm Baumann Bj 3 Ultra for severe on 12/04/20
h/o heart block with A-V dissociation s/p TAVR
CAD s/p complicated LAD PCI 09/03/20
h/o urgent pericardiocentesis and small vessel distal embolization 09/03/20
HTN
HLD
History of NSVT by prior holter monitor
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
History of Gastrostomy
Peripheral neuropathy
Former smoker
Chronic back pain
History of Hysterectomy
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
Osteoarthritis of B/L knees s/p L TKR 08/2021
Obesity
Efrain syndrome
Lexiscan stress test at [facility]: Mild apical ischemia, preserved EF, intermediate risk
Echo 08/29: EF 60-65%, status post #26 TAVR R with mean gradient of 10, trace aortic regurgitation, trace TR with PA pressure 43
Plan:
- She presents today 02/24/2024 with worsening shortness of breath and increasing LE edema. She has B/L LE wounds and follows with home wound care. She does not weigh herself daily and is not sure if she has gained weight. Was supposed to have
appointment with her executive administrative assistant, Dr. Jacob Bailey, this week but could not get out of the house due to immobility from LE edema.
Admits to orthopnea, PND. No fevers, chills. No palps, lightheadedness, syncope. No chest pain
EKG: A sensed, Vpaced
Regarding heart failure with preserved ejection fraction and acute decompensation:
Still volume overloaded with significant lower extremity edema, wounds, and elevated BNP (proBNP this admission 2540, was 1760 in August 2023)
With IV diuresis, Lasix 40 mg IV twice daily there has been minimal negative fluid balance, weight is up today.
Will increase Lasix to 80 mg IV twice daily with PM dose 02/25/24, l follow renal function, electrolytes and blood pressure closely
Continue outpatient spironolactone, irbesartan
There has been non-PA related minimal troponin elevation, flat this admission
Eventual repeat echo, does not have to be done over the weekend
Treatment for right lower extremity cellulitis per primary team and wound care consult
Progress Note - Rn Relief Charge
Subjective
Date of Service: February 25, 2024
She tells me that she feels her breathing is slightly improved. She admits she is not getting much activity.
Objective
Labs:
02/24/24 12:50
02/25/24 09:47
Labs
Hgb 13.3 g/dL (12.0-16.0) 02/24/24 12:50
Hct 40.3 % (37.0-47.0) 02/24/24 12:50
Plt Count 221 10^3/uL (130-400) 02/24/24 12:50
Sodium 132 mmol/L (135-145) L 02/25/24 09:47
Potassium 3.6 mmol/L (3.5-5.1) 02/25/24 09:47
BUN 18 mg/dl (7-17) H 02/25/24 09:47
Creatinine 0.5 mg/dL (0.6-1.0) L 02/25/24 09:47
Glucose 101 mg/dl (70-99) H 02/25/24 09:47
Troponins
02/24/24 02/24/24 02/24/24
12:50 19:00 21:25
Troponin I 0.061 H* Cancelled 0.055 H*
02/25/24
04:18
Troponin I 0.041 H* D
Vital Signs and I&O:
Vital Signs
Temp Pulse Resp BP Pulse Ox
97.7 F 69 18 133/64 92
02/25/24 11:44 02/25/24 11:44 02/25/24 11:44 02/25/24 11:44 02/25/24 11:44
Vital Signs
Temp Pulse Resp BP Pulse Ox
97.7 F 69 18 133/64 92
02/25/24 11:44 02/25/24 11:44 02/25/24 11:44 02/25/24 11:44 02/25/24 11:44
Intake & Output
02/23/24 02/24/24 02/25/24 02/26/24
06:59 06:59 06:59 06:59
Intake Total 480 / 480
Output Total 500 / 500
Balance -20 / -20
Physical Exam
Physical Exam
Morbidly obese
Regular rate and rhythm normal S1 and S2 no S3 no S4 grade 1/6 apical stock murmur no rubs
Lungs inspiratory effort, reduced breath sounds at both bases, no rales or rhonchi, no wheezes
Abdomen is obese soft nontender nondistended normal bowel sounds
Extremities +4 pitting edema bilateral lower extremities with chronic venous stasis changes, brawny skin
[2024-02-25] MEDS: KEFLEX PO (15:00)
[2024-02-25 15:59] VITALS: BP 112/59
[2024-02-25] MEDS: LASIX 80 MG IV (17:17)
[2024-02-25] MEDS: LOVENOX 40 MG SC (17:18)
[2024-02-25 19:15] VITALS: BP 122/56
[2024-02-25] MEDS: VIBRAMYCIN 100 MG PO (20:52)
[2024-02-25] MEDS: TYLENOL 1000 MG PO (20:52)
[2024-02-25] MEDS: MELATONIN 10 MG PO (22:53)
[2024-02-25 23:30] VITALS: BP 115/55
[2024-02-26] VITALS (7 sets, daily range): BP systolic 117–135; BP diastolic 54–74; BMI 40.9
[2024-02-26] MEDS: ANCEF 5 IV ×3 (05:21→20:50)
[2024-02-26] MEDS: COLACE 100 MG PO (05:22)
[2024-02-26 08:12] LABS: Hematocrit 36.2 % (37.0-47.0); Hemoglobin 11.9 g/dL (12.0-16.0); Mean Corp Hgb Conc. 32.9 g/dL (33.0-37.0); Mean Corpuscular Hgb 29.8 pg (27.0-31.0); Mean Corpuscular Volume 90.5 fL (81.0-99.0); Mean Platelet Volume 10.7 fL (7.4-10.4); Platelet Count 203 10^3/uL (130-400); Red Cell Dist. Width 14.6 % (11.5-14.5)
[2024-02-26 08:43] LABS: Blood Urea Nitrogen 29 mg/dl (7-17); Calcium 7.8 mg/dl (8.4-10.2); Carbon Dioxide 35 mmol/L (22-30); Chloride 89 mmol/L (98-107); Estimated Creatinine Clearance 93 ml/min; Glucose 102 mg/dl (70-99); Magnesium 2.1 mg/dl (1.6-2.3); Potassium 3.7 mmol/L (3.5-5.1); Sodium 130 mmol/L (135-145); eGFR > 60.00
[2024-02-26] MEDS: ULTRAM 50 MG PO ×2 (09:12→18:09)
[2024-02-26] MEDS: VIBRAMYCIN 100 MG PO ×2 (09:12→20:50)
[2024-02-26] MEDS: AVAPRO 300 MG PO (09:12)
[2024-02-26] MEDS: LASIX 80 MG IV ×2 (09:13→17:32)
--- NOTE | 2024-02-26 11:59 | W.PN.HOSP.TC ---
Today's Communication/Plan
-
Abx, wound culture, wound care
IV Lasix continues
Assessment / Plan
Assessment / Plan
Assessment:
Acute on chronic HFpEF
Non Ischemic Troponin Elevation
Essential HTN
-she is on Lasix 40mg PO QD at home
-last TTE 08/29 with EF 60-65%, well seated TAVR with trace AR
-continue IV Lasix BID - requires intensive monitoring of I/Os, Weights, Lytes
-follow telemetry
-repeat TTE routinely Tuesday
-trend Troponin
-MANAGER SITE Spironolactone
-MANAGER SITE Irbesartan
bilateral venous stasis with ulcerations
RLE cellulitis > LLE cellulitis
- check wound culture, MRSA swab
- wound care ordered; formal eval Tuesday
- continue Ancef/Doxy, day 2
CHB s/p PPM 12/30
s/p TAVR
-repeat TTE routinely
DVT ppx: Lovenox
Code: DNR
Anticipated Discharge: > 48 hours
Subjective/Interval History
-
Date of Service: February 26, 2024
Objective Data
-
Labs:
Laboratory Results
02/26/24
06:11
WBC 9.0
Hgb 11.9 L
Hct 36.2 L
Plt Count 203
Sodium 130 L
Potassium 3.7
Chloride 89 L
Carbon Dioxide 35 H
BUN 29 H
Creatinine 0.6
Glucose 102 H
Calcium 7.8 L
Vital Signs:
Vital Signs
Temp Pulse Resp BP Pulse Ox
97.8 F 65 22 127/74 96
02/26/24 07:30 02/26/24 09:12 02/26/24 07:30 02/26/24 09:12 02/26/24 07:30
I&O
02/25/24 02/26/24 02/27/24
06:59 06:59 06:59
Intake Total 480 / 480 1080 / 1080
Output Total 500 / 500 2049
Balance -20 / -20 -970 / -970
Physical Exam
-
General: No Apparent Distress
HEENT: Normocephalic and Atraumatic
Respiratory: Clear to Auscultation; Negative Wheezes
Cardiac: Regular Rhythm
GI: Soft
Genito-urinary: No Costovertebral Tender
Musculoskeletal: Edema, Right Lower Extrem and Edema, Left Lower Extrem
Neuro: AO x 3
Psych: Calm
Data Reviewed
-
Total Time Spent with Patient (in minutes): 52
Labs: Labs Reviewed by me
[2024-02-26] MEDS: LOVENOX 40 MG SC (17:32)
[2024-02-26] MEDS: MIRALAX 17 GRAMS PO (18:09)
[2024-02-26] MEDS: SENOKOT-S PO (20:50)
[2024-02-26] MEDS: MELATONIN 10 MG PO (21:11)
[2024-02-27] VITALS (7 sets, daily range): BP systolic 124–144; BP diastolic 60–69; PULSE 72; O2SAT 92; BMI 40.2
[2024-02-27] MEDS: ANCEF 5 IV ×3 (05:28→21:48)
[2024-02-27 07:33] LABS: Hematocrit 37.7 % (37.0-47.0); Hemoglobin 12.6 g/dL (12.0-16.0); Mean Corp Hgb Conc. 33.4 g/dL (33.0-37.0); Mean Corpuscular Hgb 29.6 pg (27.0-31.0); Mean Corpuscular Volume 88.5 fL (81.0-99.0); Mean Platelet Volume 9.9 fL (7.4-10.4); Platelet Count 232 10^3/uL (130-400); Red Blood Cell Count 4.26 10^6/uL (4.20-5.40); Red Cell Dist. Width 14.1 % (11.5-14.5); White Blood Cell Count 8.5 10^3/uL (4.8-10.8)
[2024-02-27 07:55] LABS: Blood Urea Nitrogen 25 mg/dl (7-17); Calcium 8.3 mg/dl (8.4-10.2); Carbon Dioxide 37 mmol/L (22-30); Chloride 87 mmol/L (98-107); Estimated Creatinine Clearance 92 ml/min; Glucose 113 mg/dl (70-99); Potassium 3.6 mmol/L (3.5-5.1); Sodium 131 mmol/L (135-145); eGFR > 60.00
[2024-02-27] MEDS: SENOKOT-S 1 TABLET PO (08:41)
[2024-02-27] MEDS: VIBRAMYCIN 100 MG PO ×2 (08:41→20:37)
[2024-02-27] MEDS: AVAPRO 300 MG PO (08:41)
[2024-02-27] MEDS: LASIX 80 MG IV ×2 (08:43→17:00)
[2024-02-27] MEDS: DESENEX/MITRAZOL/ZEASORB 1 APPLIC TOPICAL ×2 (08:43→20:37)
[2024-02-27] MEDS: MIRALAX 17 GRAMS PO (08:43)
[2024-02-27] MEDS: ALDACTONE 25 MG PO (08:43)
--- NOTE | 2024-02-27 08:50 | VNURNOTE ---
Chart reviewed. Patient is current with [facility] nursing. Will continue to follow hospital course and DC plans.
[2024-02-27] MEDS: ULTRAM 50 MG PO ×2 (10:57→21:47)
--- NOTE | 2024-02-27 12:23 | CM ---
Addendum entered by Adelaida Lewis 02/27/24 15:53:
Patient is agreeable to skilled placement at [facility], referral sent to [facility], patient may benefit from air mattress will pass on to admissions at skilled facility.
Original Note:
Chart reviewed and recommendation from physical therapy is for skilled placement, skilled options reviewed and home health care case manager will assist with skilled placement.
Plan; Skilled placement.
--- NOTE | 2024-02-27 13:03 | W.PN.CARDCBS ---
Today's Communication / Plan
-
Cont tx for heart failure with preserved ejection fraction and acute decompensation
Still volume overloaded with significant lower extremity edema, wounds, and elevated BNP (proBNP this admission 2540, was 1760 in August 2023)
Her wt is down and Is and Os negative 1L last 24 hrs with lasix 80 mg IV BID, which was an increase
Continue outpatient spironolactone, irbesartan, cr stable.
Echo is pending
Cont medical therapy of non-[place] troponin elevation, flat this admission
Cont Treatment for right lower extremity cellulitis per primary team and wound care
Impression / Plan
-
.
Primary Charter Coach Driver: Dr. Bailey of [facility]
Impression:
Acute on chronic HF p EF
chronic venous insufficiency w/ profound LE edema and RLE wound
s/p Medtronic dual-chamber permanent pacemaker utilizing the left bundle branch for conduction system pacing 12/16/2022 due to CHB
RBBB
OA s/p R TKA 11/25/22
hx NSVT/LBBB
s/p left Transfemoral TAVR 26mm Baumann Bj 3 Ultra for severe on 12/04/20
h/o heart block with A-V dissociation s/p TAVR
CAD s/p complicated LAD PCI 09/03/20
h/o urgent pericardiocentesis and small vessel distal embolization 09/03/20
HTN
HLD
History of NSVT by prior holter monitor
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
History of Gastrostomy
Peripheral neuropathy
Former smoker
Chronic back pain
History of Hysterectomy
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
Osteoarthritis of B/L knees s/p L TKR 08/2021
Obesity
Efrain syndrome
Lexiscan stress test at [facility]: Mild apical ischemia, preserved EF, intermediate risk
Echo 08/29: EF 60-65%, status post #26 TAVR R with mean gradient of 10, trace aortic regurgitation, trace TR with PA pressure 43
Plan:
Cont tx for heart failure with preserved ejection fraction and acute decompensation
Still volume overloaded with significant lower extremity edema, wounds, and elevated BNP (proBNP this admission 2540, was 1760 in August 2023)
Her wt is down and Is and Os negative 1L last 24 hrs with lasix 80 mg IV BID, which was an increase
Continue outpatient spironolactone, irbesartan, cr stable.
Echo is pending
Cont medical therapy of non-UT troponin elevation, flat this admission
Cont Treatment for right lower extremity cellulitis per primary team and wound care
EKG Feb 25 2024: A sensed, Vpaced
Discussed with wound care
HPI: She presents today 02/24/2024 with worsening shortness of breath and increasing LE edema. She has B/L LE wounds and follows with home wound care. She does not weigh herself daily and is not sure if she has gained weight. Was supposed to have
appointment with her director financial systems, Dr. Jacob Bailey, this week but could not get out of the house due to immobility from LE edema.
Admits to orthopnea, PND. No fevers, chills. No palps, lightheadedness, syncope. No chest pain
Progress Note - Charter Coach Driver
Subjective
Date of Service: February 27, 2024
Pt seen and examined. No cp
Objective
Labs:
02/27/24 06:48
02/27/24 06:48
Labs
Hgb 12.6 g/dL (12.0-16.0) 02/27/24 06:48
Hct 37.7 % (37.0-47.0) 02/27/24 06:48
Plt Count 232 10^3/uL (130-400) 02/27/24 06:48
Sodium 131 mmol/L (135-145) L 02/27/24 06:48
Potassium 3.6 mmol/L (3.5-5.1) 02/27/24 06:48
BUN 25 mg/dl (7-17) H 02/27/24 06:48
Creatinine 0.5 mg/dL (0.6-1.0) L 02/27/24 06:48
Glucose 113 mg/dl (70-99) H 02/27/24 06:48
Troponins
02/24/24 02/24/24 02/24/24
12:50 19:00 21:25
Troponin I 0.061 H* Cancelled 0.055 H*
02/25/24
04:18
Troponin I 0.041 H* D
Vital Signs and I&O:
Vital Signs
Temp Pulse Resp BP Pulse Ox
97.5 F 72 22 124/60 93
02/27/24 11:21 02/27/24 11:21 02/27/24 11:21 02/27/24 11:21 02/27/24 11:21
Vital Signs
Temp Pulse Resp BP Pulse Ox
97.5 F 72 22 124/60 93
02/27/24 11:21 02/27/24 11:21 02/27/24 11:21 02/27/24 11:21 02/27/24 11:21
Intake & Output
02/25/24 02/26/24 02/27/24 02/28/24
06:59 06:59 06:59 06:59
Intake Total 480 / 480 1080 / 1080 1200 / 1200
Output Total 500 / 500 2049 / 2049 2199 / 220
Balance -20 / -20 -970 / -970 -1000 / -1000
Physical Exam
Physical Exam
General: No acute distress, AAOX3
Neck: Negative JVD
Heart: Regular, Negative S3 positive S1/S2, Negative S4, No murmur
Lungs: CTA b/l, negative wheezes/rales/rhonchi
Abd: Positive BS, NT/ND, neg rebound/rigidity/guarding
Ext: Negative cyanosis/clubbing. +2-3 LE edema with skin breakdown.
Neuro: nonfocal
--- NOTE | 2024-02-27 13:32 | WOUNDNOTE ---
RLE (LATERAL POSTERIOR)
--- NOTE | 2024-02-27 13:33 | WOUNDNOTE ---
RLE (POSTERIOR LATERAL)
--- NOTE | 2024-02-27 13:40 | WOUNDNOTE ---
[facility] RN note: Patient admitted with heart failure. Patient current with VN. Plan is SNF/rehab when discharged.
See H&P for complete history.
PMH: CHF, ppm, venous stasis wounds, HTN, CAD/WV, PCI, pericardiocentesis, small vessel distal embolization, TAVR, legionaries's, pneumonia, previous trach with residual trach stenosis, Covid 2021, neuropathy, herpes simplex with ocular
involvement.
Wound Location and type/assessment: Patient admitted with: deep dermal venous stasis ulcers Le's with sanguinous drainage. Trace LE edema. +Pedal pulses. Last arterial Doppler 04/02/19 L ANGI 1.20, L toe .89; R ANGI 1.20, R toe .89. 11/26/22 LE
venous Doppler negative for DVT. R sacral buttocks stage 2 pressure injury. Sacral crease and josephine skin MASD. L plantar heel partial thickness abrasion. She said L heel ulcer was from rubbing her heel to move after a previous fall prior to
admission. She has a back bruise. She also said her leg ulcers started from a pedicure where they used Epson salts in the water to scrub her skin.
Appetite: good.
Pressure redistribution devices in place: [employer] Accumax. YANET Arroyo to apply a waffle air overlay. Air chair cushion.
Plan: Le dressings changed with help from RN educator Brissa Baltazar Bilateral Moses wrap applied (Dr. Hutchinson approved from cardiology perspective). Silicone border foam applied R sacral/buttocks. Patient stood for buttocks assessment with help from RN
Cruz. Air chair cushion placed under calves in recliner.
Confirm orders including noting sanguinous bleeding during LE wound care and knee high Moses wraps with Dr. Sandip Campa and discussed with YANET Arroyo.
Care plan to be updated and will follow as needed.
Note to case management of equipment requested for discharge: air mattress at SNF. Discussed with SAM Pennington.
Recommend follow up at wound care center upon discharge.
--- NOTE | 2024-02-27 14:30 | CARDSERVLU ---
Echocardiogram with Lumason completed after protocol screening completed. Allergies verified.
Patent IV site: _R AC____
IV site flushed with 0.9% NaCl pre and post administration.
Diluted bolus method utilized to enhance visualization of ventricular johnson.
Total volume given: _2.5___ mL
Patient tolerated all procedures well without complications.
--- NOTE | 2024-02-27 15:01 | W.PN.HOSP.TC ---
Today's Communication/Plan
-
Maintained on IV diuretics
Follow weight/creatinine
Continue wound care
Continue antibiotics
Assessment / Plan
Assessment / Plan
Acute on chronic HFpEF
Non Ischemic Troponin Elevation
Essential HTN
-she is on Lasix 40mg PO QD at home
-last TTE 08/29 with EF 60-65%, well seated TAVR with trace AR
-trend Troponin
-INSPECTING SUPERVISOR Spironolactone
-INSPECTING SUPERVISOR Irbesartan
-Cardiology following and patient currently on IV diuretics, follow weight and creatinine
Severe venous stasis dermatitis
Lower extremity cellulitis
-superficial wound culture growing Pseudomonas/enterococcus
-Wound care nurse evaluated, pictures reviewed. Patient have extensive dry/scabbed skin, patient underwent pedicure with aggressive scrubbing of the skin causing epithelial denuding.
-Currently on empiric antibiotics with Ancef/doxycycline, we will finish a short course
Essential HTN
-Maintained on irbesartan/Aldactone in nature
Hyponatremia
-Presumed combination of euvolemic/hypervolemic
Metabolic alkalosis
-with diuretics use related.
CHB s/p PPM 12/30
s/p TAVR
-repeat TTE routinely
DVT ppx: Lovenox
Code: DNR
Total time spent : 52 mins
Anticipated Discharge: > 48 hours
Subjective/Interval History
-
Date of Service: February 27, 2024
Resting comfortably in chair
Not hypoxic/not on oxygen
Denies chest discomfort/palpitation/shortness of breath
Objective Data
-
Labs:
Laboratory Results
02/27/24
06:48
WBC 8.5
Hgb 12.6
Hct 37.7
Plt Count 232
Sodium 131 L
Potassium 3.6
Chloride 87 L
Carbon Dioxide 37 H
BUN 25 H
Creatinine 0.5 L
Glucose 113 H
Calcium 8.3 L
Vital Signs:
Vital Signs
Temp Pulse Resp BP Pulse Ox
97.5 F 72 22 124/60 93
02/27/24 11:21 02/27/24 11:21 02/27/24 11:21 02/27/24 11:21 02/27/24 11:21
I&O
02/26/24 02/27/24 02/28/24
06:59 06:59 06:59
Intake Total 1080 / 1080 1200 / 1200
Output Total 2049 / 2049 2199 / 2199
Balance -970 / -970 -1000 / -1000
Review of Systems
-
Respiratory: Reports No Symptoms
Cardiac: Reports No Symptoms
Abdomen/GI: Reports No Symptoms
Physical Exam
-
General: Morbidly Obese
HEENT: Negative Oxygen
Respiratory: Clear to Auscultation
GI: Soft, Nontender and Nondistended
Musculoskeletal: Edema, Right Lower Extrem and Edema, Left Lower Extrem
Neuro: Awake, Alert and Oriented
[2024-02-27] MEDS: LOVENOX 40 MG SC (16:58)
[2024-02-27] MEDS: SENOKOT-S PO (20:39)
[2024-02-27] MEDS: MELATONIN 10 MG PO (21:47)
[2024-02-28] VITALS (7 sets, daily range): BP systolic 96–130; BP diastolic 49–62; PULSE 71; O2SAT 98; BMI 40.9
[2024-02-28] MEDS: TYLENOL 1000 MG PO ×2 (00:52→21:46)
[2024-02-28] MEDS: ANCEF 5 IV ×3 (05:42→21:29)
[2024-02-28] MEDS: ULTRAM 50 MG PO ×3 (06:34→20:02)
[2024-02-28] MEDS: HYDROPHOR 1 APPLIC TOPICAL (07:56)
[2024-02-28] MEDS: DESENEX/MITRAZOL/ZEASORB 1 APPLIC TOPICAL ×2 (07:56→20:02)
[2024-02-28] MEDS: MIRALAX 17 GRAMS PO (07:56)
[2024-02-28] MEDS: VIBRAMYCIN 100 MG PO ×2 (07:57→20:02)
[2024-02-28] MEDS: LASIX 80 MG IV ×2 (07:57→15:42)
[2024-02-28] MEDS: SENOKOT-S 1 TABLET PO (07:58)
[2024-02-28] MEDS: AVAPRO 300 MG PO (07:58)
--- NOTE | 2024-02-28 12:02 | W.PN.CARDCBS ---
Addendum entered and electronically signed by Julio Cesar Leyva MD 02/28/24 15:01:
I saw and examined the patient.
The White Sugar Supervisor's note was reviewed and I agree with the note.
Comment: Briefly, 78-year-old woman past medical history of heart failure preserved ejection fraction coming in with significant lower extremity edema and overlying erythema and ulceration concerning for cellulitis
Volume status is challenging, still with lower extremity edema however suspect some of this is related to chronic venous insufficiency/lymphedema
Would ideally have daily standing weights as built-in bed scale can be unreliable
Still requiring supplemental oxygen, wean as able
Continue IV diuresis
Follow renal function electrolytes closely, suspect she is becoming intravascularly depleted based on rising BUN, may need to decrease frequency of Lasix
Antibiotics and wound care per primary service
Original Note:
Today's Communication / Plan
-
Continue IV diuresis
Monitor renal function and electrolytes
BMP pending, keep K greater than 4, mag greater than 2 and replete as needed
Ongoing treatment of wounds/cellulitis per primary team and wound care
Impression / Plan
-
.
Primary Churn Operator Margarine: Dr. Bailey of [facility]
Impression:
Presented 02/24/2024 with shortness of breath and edema
Acute on chronic HF p EF, proBNP 2540
chronic venous insufficiency w/ profound LE edema and RLE wound
s/p Medtronic dual-chamber permanent pacemaker utilizing the left bundle branch for conduction system pacing 12/16/2022 due to CHB
RBBB
OA s/p R TKA 11/25/22
hx NSVT/LBBB
s/p left Transfemoral TAVR 26mm Baumann Bj 3 Ultra for severe on 12/04/20
h/o heart block with A-V dissociation s/p TAVR
CAD s/p complicated LAD PCI 09/03/20
h/o urgent pericardiocentesis and small vessel distal embolization 09/03/20
HTN
HLD
History of NSVT by prior holter monitor
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
History of Gastrostomy
Peripheral neuropathy
Former smoker
Chronic back pain
History of Hysterectomy
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
Osteoarthritis of B/L knees s/p L TKR 08/2021
Obesity
Efrain syndrome
Lexiscan stress test at [facility]: Mild apical ischemia, preserved EF, intermediate risk
Echo 02/27/2024: EF 75%. Severe left atrial dilation, mild right atrial dilation. Well-seated number 26 mm Baumann BJ valve with peak/mean gradient 16/8 mmHg and no paravalvular leak.
Echo 08/29: EF 60-65%, status post #26 TAVR R with mean gradient of 10, trace aortic regurgitation, trace TR with PA pressure 43
Plan:
Symptomatically appears to be improving but still evidence of volume overload with significant lower extremity edema, wounds.
Cont tx for heart failure with preserved ejection fraction and acute decompensation
elevated BNP (proBNP this admission 2540, was 1760 in August 2023)
Continue ongoing diuresis with lasix 80 mg IV BID
BMP pending. Would keep potassium greater than 4 and replete as needed
Continue outpatient spironolactone, irbesartan, cr pending
Echo as noted above with preserved ejection fraction and stable aortic valve gradients with history of TAVR and no paravalvular leak
Abnormal troponin, which peaked at 0.061. Denies chest pain and EKG without ischemic changes. Suspect nonischemic myocardial injury secondary to acute heart failure exacerbation.
Cont Treatment for right lower extremity cellulitis per primary team and wound care
Per review of telemetry paced rhythm with frequent PVCs and occasional bigeminal patterns. BMP pending would keep K greater than 4 and mag greater than 2 replete if needed.
HPI: She presents today 02/24/2024 with worsening shortness of breath and increasing LE edema. She has B/L LE wounds and follows with home wound care. She does not weigh herself daily and is not sure if she has gained weight. Was supposed to have
appointment with her spark tester, Dr. Jacob Bailey, this week but could not get out of the house due to immobility from LE edema.
Admits to orthopnea, PND. No fevers, chills. No palps, lightheadedness, syncope. No chest pain
Progress Note - Churn Operator Margarine
Subjective
Date of Service: February 28, 2024
Pt seen and examined. Feeling better, sitting in chair
Objective
Labs:
02/27/24 06:48
Labs
Hgb 12.6 g/dL (12.0-16.0) 02/27/24 06:48
Hct 37.7 % (37.0-47.0) 02/27/24 06:48
Plt Count 232 10^3/uL (130-400) 02/27/24 06:48
Sodium 131 mmol/L (135-145) L 02/27/24 06:48
Potassium 3.6 mmol/L (3.5-5.1) 02/27/24 06:48
BUN 25 mg/dl (7-17) H 02/27/24 06:48
Creatinine 0.5 mg/dL (0.6-1.0) L 02/27/24 06:48
Glucose 113 mg/dl (70-99) H 02/27/24 06:48
Vital Signs and I&O:
Vital Signs
Temp Pulse Resp BP Pulse Ox
97.9 F 68 21 120/50 96
02/28/24 11:00 02/28/24 11:00 02/28/24 11:00 02/28/24 11:00 02/28/24 11:00
Vital Signs
Temp Pulse Resp BP Pulse Ox
97.9 F 68 21 120/50 96
02/28/24 11:00 02/28/24 11:00 02/28/24 11:00 02/28/24 11:00 02/28/24 11:00
Intake & Output
02/26/24 02/27/24 02/28/24 02/29/24
06:59 06:59 06:59 06:59
Intake Total 1080 / 1080 1200 / 1200 1200 / 1200
Output Total 2049 2200 / 2199 500 / 500
Balance -970 / -970 -1000 / -1000 700 / 700
Physical Exam
Physical Exam
GEN: No distress, awake, Ox3, sitting in chair
HEENT: supple, anicteric, mmm
LUNGS: few scattered rhonchi otherwise CTA, no wheezes/rales; on room air
CV: Reg, S1/S2, 1/6 syst LSB, no murmur
ABD: soft, BS+, NT/ND
EXT: +2 LE edema with skin breakdown, legs in rahat wraps
NEURO: Gross non-focal
SKIN: No rash, warm ,dry, pink
[2024-02-28 12:55] LABS: Blood Urea Nitrogen 28 mg/dl (7-17); Calcium 8.6 mg/dl (8.4-10.2); Carbon Dioxide 39 mmol/L (22-30); Chloride 83 mmol/L (98-107); Estimated Creatinine Clearance 93 ml/min; Glucose 178 mg/dl (70-99); Potassium 3.9 mmol/L (3.5-5.1); Sodium 129 mmol/L (135-145); eGFR > 60.00
--- NOTE | 2024-02-28 13:13 | PN.CDI ---
CDI
- -
CDI:
Physician Documentation Request
Admit Date: 02/24/24 16:35
Dear Doctor Lokesh,
Please review the following and provide your response in the progress notes.
Clinical Indicators:
Pt admitted with CHFpEF exacerbation /Venous stasis/Cellulitis B/L lower extremities
Documented per [facility] note 02/26, '... R sacral buttocks stage 2 pressure injury. ....'
Physician documentation of the type and location of wounds is required for compliant documentation. Based on the above clinical findings and your assessment, please provide the following in your progress note:
1. Location of the ulcer/wound, including laterality.
2. Type (etiology) of ulcer/wound:
- Pressure (decubitus) ulcer
- Non-pressure ulcer
- Other ( please specify)
Use of terms such as suspected, likely, concern for, or probable (associated with a specific diagnosis that is being evaluated, monitored, or treated as if it exists) are acceptable and can be coded in the inpatient setting, when documented at the
time of discharge.
Thank you,
Shaylee Keane RN
CDI Specialist
[place] [facility]
Please use your independent medical judgment in providing your response.
*Source: National Pressure Ulcer Advisory Panel (NPUAP)
[2024-02-28] MEDS: KCL 20 MEQ PO (13:24)
[2024-02-28] MEDS: LOVENOX 40 MG SC (15:42)
--- NOTE | 2024-02-28 15:46 | W.PN.HOSP.TC ---
Addendum entered and electronically signed by Charli Campa MD 02/28/24 18:12:
R sacral buttocks stage 2 pressure injury
Original Note:
Today's Communication/Plan
-
Continue diuretic therapy
continue abx one more day
f/u weight/cr
Assessment / Plan
Assessment / Plan
Acute on chronic HFpEF
Non Ischemic Troponin Elevation
Essential HTN
-she is on Lasix 40mg PO QD at home
-last TTE 08/29 with EF 60-65%, well seated TAVR with trace AR
-trend Troponin
-maintain on irbesartan/Aldactone
-Cardiology following and patient currently on IV diuretics, follow weight and creatinine
Severe venous stasis dermatitis
Lower extremity cellulitis
-superficial wound culture growing Pseudomonas/enterococcus
-Wound care nurse evaluated, pictures reviewed. Patient have extensive dry/scabbed skin, patient underwent pedicure with aggressive scrubbing of the skin causing epithelial denuding.
-Currently on empiric antibiotics with Ancef/doxycycline, we will finish a short course
Essential HTN
-Maintained on irbesartan/Aldactone in nature
Hyponatremia
-Presumed combination of euvolemic/hypervolemic
Metabolic alkalosis
-with diuretics use related.
CHB s/p PPM 12/30
s/p TAVR
-repeat TTE routinely
DVT ppx: Lovenox
Code: DNR
Anticipated Discharge: 24 - 48 hours
Subjective/Interval History
-
Date of Service: February 28, 2024
Resting comfortably in chair
Complaining of some bilateral burning leg pain
Afebrile overnight
No other reported problems
Objective Data
-
Labs:
Laboratory Results
02/28/24
11:59
Sodium 129 L
Potassium 3.9
Chloride 83 L
Carbon Dioxide 39 H
BUN 28 H
Creatinine 0.6
Glucose 178 H
Calcium 8.6
Vital Signs:
Vital Signs
Temp Pulse Resp BP Pulse Ox
97.9 F 68 21 120/50 96
02/28/24 11:00 02/28/24 11:00 02/28/24 11:00 02/28/24 11:00 02/28/24 11:00
I&O
02/27/24 02/28/24 02/29/24
06:59 06:59 06:59
Intake Total 1200 / 1200 1200 / 1200 480 / 480
Output Total 2200 / 2200 500 / 500
Balance -1000 / -1000 700 / 700 480 / 480
Review of Systems
-
Respiratory: Reports No Symptoms
Cardiac: Reports No Symptoms
Abdomen/GI: Reports No Symptoms
Physical Exam
-
General: Morbidly Obese
HEENT: Negative Oxygen
Respiratory: Clear to Auscultation
Cardiac: Regular Rhythm and S1/S2; Negative Murmur
GI: Soft, Nontender and Nondistended
Musculoskeletal: Edema, Right Lower Extrem and Edema, Left Lower Extrem
Neuro: Awake, Alert and Oriented
[2024-02-28] MEDS: SENOKOT-S PO (20:02)
[2024-02-28] MEDS: MELATONIN 10 MG PO (21:29)
--- NOTE | 2024-02-29 02:28 | DOWNTIME ---
There was a [employer] Delivery Downtime on 02/29/2024 from 0100 to 02/28/2023 at 0205 . Downtime documentation of patient's care, including medication administrations, has been reconciled in the electronic record per guidelines. Refer to the
patient's paper chart under the miscellaneous tab to see printed paper medication records and downtime forms.
[2024-02-29] MEDS: ULTRAM 50 MG PO ×3 (03:34→17:35)
[2024-02-29 03:49] VITALS: BP 137/70
[2024-02-29 05:13] VITALS: BMI 39.3
[2024-02-29] MEDS: TYLENOL 1000 MG PO (05:44)
[2024-02-29] MEDS: ANCEF 5 IV (05:46)
[2024-02-29 07:24] VITALS: BP 125/59
[2024-02-29 08:23] LABS: Blood Urea Nitrogen 35 mg/dl (7-17); Calcium 8.1 mg/dl (8.4-10.2); Chloride 83 mmol/L (98-107); Estimated Creatinine Clearance 91 ml/min; Glucose 114 mg/dl (70-99); Potassium 3.8 mmol/L (3.5-5.1); Sodium 128 mmol/L (135-145); eGFR > 60.00
[2024-02-29 08:58] LABS: Carbon Dioxide 33 mmol/L (22-30)
[2024-02-29] MEDS: DESENEX/MITRAZOL/ZEASORB 1 APPLIC TOPICAL ×2 (09:16→20:51)
[2024-02-29] MEDS: LASIX 80 MG IV ×2 (09:17→15:46)
[2024-02-29] MEDS: SENOKOT-S 1 TABLET PO (09:17)
[2024-02-29] MEDS: AVAPRO 300 MG PO (09:17)
[2024-02-29] MEDS: HYDROPHOR 1 APPLIC TOPICAL (09:18)
[2024-02-29] MEDS: ALDACTONE 25 MG PO (09:21)
[2024-02-29] MEDS: MIRALAX PO (09:21)
[2024-02-29] MEDS: VIBRAMYCIN PO (09:28)
--- NOTE | 2024-02-29 11:26 | W.PN.HOSP.TC ---
Today's Communication/Plan
-
see note
eventual rehab
Assessment / Plan
Assessment / Plan
Acute on chronic HFpEF
Non Ischemic Troponin Elevation
Essential HTN
-she is on Lasix 40mg PO QD at home
-last TTE 08/29 with EF 60-65%, well seated TAVR with trace AR
-trend Troponin
-maintain on irbesartan/Aldactone
-BUN elevated, creatinine stable. Weight trending down.
-On IV lasix 80mg/bid
Severe venous stasis dermatitis
Lower extremity cellulitis
-superficial wound culture growing Pseudomonas/enterococcus
-Wound care nurse evaluated, pictures reviewed. Patient have extensive dry/scabbed skin, patient underwent pedicure with aggressive scrubbing of the skin causing epithelial denuding.
-Finished short course of Ancef/doxycycline continue doing local wound care
Essential HTN
-Maintained on irbesartan/Aldactone in nature
Hyponatremia
-Presumed combination of euvolemic/hypervolemic
-fluid restriction changed to 40 ounce
-trending down, if further trend down will involve nephrology for possible tolvaptan dosing
Metabolic alkalosis
-with diuretics use related.
CHB s/p PPM 12/30
s/p TAVR
-repeat TTE routinely
DVT ppx: Lovenox
Code: DNR
Total time spent : 52 mins
Anticipated Discharge: 24 - 48 hours
Subjective/Interval History
-
Date of Service: February 29, 2024
Resting comfortably in bed
pain is better controlled with increased dose of tramadol
no other issues reported
Objective Data
-
Labs:
Laboratory Results
02/29/24
06:42
Sodium 128 L
Potassium 3.8
Chloride 83 L
Carbon Dioxide 33 H
BUN 35 H
Creatinine 0.6
Glucose 114 H
Calcium 8.1 L
Vital Signs:
Vital Signs
Temp Pulse Resp BP Pulse Ox
98.1 F 61 20 125/59 98
02/29/24 07:24 02/29/24 07:24 02/29/24 07:24 02/29/24 07:24 02/29/24 07:24
I&O
02/28/24 02/29/24 03/01/24
06:59 06:59 06:59
Intake Total 1200 / 1200 922 / 922
Output Total 500 / 500
Balance 700 / 700 922 / 922
Review of Systems
-
Respiratory: Reports No Symptoms
Cardiac: Reports No Symptoms
Abdomen/GI: Reports No Symptoms
Physical Exam
-
General: Morbidly Obese
HEENT: Negative Oxygen
Respiratory: Clear to Auscultation
Cardiac: Regular Rhythm and S1/S2; Negative Murmur
GI: Soft, Nontender and Nondistended
Musculoskeletal: Edema, Right Lower Extrem, Edema, Left Lower Extrem and Other (Superificial skin wound, b/l DREAD wrap in place)
Neuro: Awake, Alert and Oriented
[2024-02-29 11:35] VITALS: BP 114/54
--- NOTE | 2024-02-29 12:07 | W.PN.CARDCBS ---
Addendum entered and electronically signed by Rubén Odell MD 02/29/24 12:37:
I saw and examined the patient.
The FACULTY I ON CALL MEDICAL ASSISTANT or PA's note was reviewed and I agree with the note.
Comment: General: Well developed, well nourished in NAD.
Neck: Supple, no JVD, HJR, carotids +2 B/L, no bruits bilaterally.
Heart: Non displaced PMI, RRR, no murmurs, No S3, S4, no rubs.
Lungs: scattered rhonchi
Extremities: moderate edema bilaterally with dressings noted.
Neuro: Grossly nonfocal, awake, alert and oriented x3.
She remains volume overloaded and on oxygen. Will continue IV Lasix. She has PVCs and brief episode of nonsustained V. tach. Might consider eventual beta-rakan but this was stopped in the past at her outpatient automotive power electronics engineer at [place]. This
could be addressed as an outpatient based on her ectopy on pacemaker check.
Original Note:
Today's Communication / Plan
-
continue IV lasix
wean supp O2
consider addition of BB
replete K
LE wound care
Impression / Plan
-
.
Primary Faculty I On Call Medical Assistant: Dr. Bailey of [facility]
Impression:
Presented 02/24/2024 with shortness of breath and edema
Acute on chronic HF p EF, proBNP 2540
chronic venous insufficiency w/ profound LE edema and RLE wound
s/p Medtronic dual-chamber permanent pacemaker utilizing the left bundle branch for conduction system pacing 12/16/2022 due to CHB
RBBB
OA s/p R TKA 11/25/22
hx NSVT/LBBB
s/p left Transfemoral TAVR 26mm Baumann Bj 3 Ultra for severe on 12/04/20
h/o heart block with A-V dissociation s/p TAVR
CAD s/p complicated LAD PCI 09/03/20
h/o urgent pericardiocentesis and small vessel distal embolization 09/03/20
HTN
HLD
History of NSVT by prior holter monitor
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
History of Gastrostomy
Peripheral neuropathy
Former smoker
Chronic back pain
History of Hysterectomy
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
Osteoarthritis of B/L knees s/p L TKR 08/2021
Obesity
Efrain syndrome
Lexiscan stress test at [facility]: Mild apical ischemia, preserved EF, intermediate risk
Echo 02/27/2024: EF 75%. Severe left atrial dilation, mild right atrial dilation. Well-seated number 26 mm Baumann BJ valve with peak/mean gradient 16/8 mmHg and no paravalvular leak.
Echo 08/29: EF 60-65%, status post #26 TAVR R with mean gradient of 10, trace aortic regurgitation, trace TR with PA pressure 43
Plan:
-Continue diuresis with IV Lasix 80 mg twice daily. Creatinine stable. Weight downtrending. Prior to admission was on p.o. Lasix 40 mg daily
-Wean supplemental oxygen as able, was not on O2 as outpatient
-Echo 02/27 with preserved EF and well-seated TAVR valve
-Continue OP irbesartan, spironolactone
-She is not presently noted to be on any AV tosha blocking agents. has PPM in place. has PVCs as well as several brief runs of NSVT up to 5 beats. will keep K >4. She had been on Toprol in the past however it was stopped for unclear reasons per [facility]
notes�at date of last office visit they discussed resuming and patient stated she did not want additional medications at that time. would start low dose toprol if patient agreeable
-Troponin peaked at 0.061. No chest pain. Suspect nonischemic myocardial injury secondary to acute heart failure exacerbation
-Continue wound care of lower extremity
-OP follow up with [facility]
HPI: She presents today 02/24/2024 with worsening shortness of breath and increasing LE edema. She has B/L LE wounds and follows with home wound care. She does not weigh herself daily and is not sure if she has gained weight. Was supposed to have
appointment with her automotive power electronics engineer, Dr. Jacob Bailey, this week but could not get out of the house due to immobility from LE edema.
Admits to orthopnea, PND. No fevers, chills. No palps, lightheadedness, syncope. No chest pain
Progress Note - Faculty I On Call Medical Assistant
Subjective
Date of Service: February 29, 2024
Reports improvement in breathing and lower extremity swelling. Remains with lower extremity pain
Objective
Labs:
02/27/24 06:48
02/29/24 06:42
Labs
Hgb 12.6 g/dL (12.0-16.0) 02/27/24 06:48
Hct 37.7 % (37.0-47.0) 02/27/24 06:48
Plt Count 232 10^3/uL (130-400) 02/27/24 06:48
Sodium 128 mmol/L (135-145) L 02/29/24 06:42
Potassium 3.8 mmol/L (3.5-5.1) 02/29/24 06:42
BUN 35 mg/dl (7-17) H 02/29/24 06:42
Creatinine 0.6 mg/dL (0.6-1.0) 02/29/24 06:42
Glucose 114 mg/dl (70-99) H 02/29/24 06:42
Vital Signs and I&O:
Vital Signs
Temp Pulse Resp BP Pulse Ox
98.3 F 67 18 114/54 96
02/29/24 11:35 02/29/24 11:35 02/29/24 11:35 02/29/24 11:35 02/29/24 11:35
Vital Signs
Temp Pulse Resp BP Pulse Ox
98.3 F 67 18 114/54 96
02/29/24 11:35 02/29/24 11:35 02/29/24 11:35 02/29/24 11:35 02/29/24 11:35
Intake & Output
02/27/24 02/28/24 02/29/24 03/01/24
07:59 07:59 07:59 07:59
Intake Total 1200 / 1200 1200 / 1200 922 / 922
Output Total 2200 / 2200 500 / 500
Balance -1000 / -1000 700 / 700 922 / 922
Physical Exam
Physical Exam
GEN: No distress, awake, alert, oriented x3. sitting in chair. obese. on supp O2
HEENT: supple, anicteric, mmm, eomi
LUNGS: Mild exp wheezes B/L
CV: Reg, S1/S2, 1/6 syst LSB, no murmur
ABD: soft, BS+, NT/ND
EXT: No cyanosis, clubbing. 1+edema of B/L LE with dressings c/d/i
NEURO: Gross non-focal
SKIN: Warm, pink, dry. No rash
[2024-02-29] MEDS: KCL 20 MEQ PO (12:40)
--- NOTE | 2024-02-29 12:45 | WOUNDNOTE ---
WO RN Note: Patient in chair with air chair cushion. Air overlay mattress on bed. Patient's le's elevated in chair. Edema and erythema less than 2 days ago. Suspect red skin is stasis dermatitis. Patient has a linear dermal dry abrasion R anterior
ankle. Patient not sure if from scratching or from Moses wrap. Silicone border foam applied. Patient's dressing was changed early am and she requested this story writer not remove ABD Pads. Changed outer Kerlix wrap and reapply Moses wraps. L plantar heel
abrasion smaller. Discussed with YANET Peña who will let this story writer know if sacral/buttocks skin has worsened compared to chart photo. Spoke with Dr. Campa prior to visit who stated he is stopping antibiotics. Dr. Campa was agreeable to change on
topical care. Care plan and discharge instruction updated. Will follow as needed.
--- NOTE | 2024-02-29 12:45 | WOUNDNOTE ---
RLE (ANTERIOR)(ABD pads not removed per patient request; nursing changed during cnc machinist 2nd shift)
--- NOTE | 2024-02-29 12:45 | WOUNDNOTE ---
R 5TH TOE BASE (lateral crease)
[2024-02-29 15:01] VITALS: BP 128/61
[2024-02-29] MEDS: LOVENOX 40 MG SC (17:35)
[2024-02-29 19:00] VITALS: BP 111/51
[2024-02-29] MEDS: SENOKOT-S PO (20:50)
[2024-02-29] MEDS: MELATONIN 10 MG PO (21:15)
[2024-02-29 23:00] VITALS: BP 132/56
[2024-03-01] VITALS (7 sets, daily range): BP systolic 80–132; BP diastolic 49–62; PULSE 77; O2SAT 94; BMI 39.2
[2024-03-01] MEDS: ULTRAM 50 MG PO (04:07)
[2024-03-01 08:33] LABS: Blood Urea Nitrogen 31 mg/dl (7-17); Calcium 8.3 mg/dl (8.4-10.2); Chloride 83 mmol/L (98-107); Estimated Creatinine Clearance 78 ml/min; Glucose 119 mg/dl (70-99); Magnesium 2.1 mg/dl (1.6-2.3); Potassium 4.2 mmol/L (3.5-5.1); Sodium 128 mmol/L (135-145); eGFR > 60.00
[2024-03-01 08:52] LABS: Carbon Dioxide 38 mmol/L (22-30)
[2024-03-01] MEDS: DESENEX/MITRAZOL/ZEASORB 1 APPLIC TOPICAL ×2 (09:06→19:54)
[2024-03-01] MEDS: SENOKOT-S 1 TABLET PO (09:06)
[2024-03-01] MEDS: AVAPRO 300 MG PO (09:06)
[2024-03-01] MEDS: MIRALAX PO (09:06)
[2024-03-01] MEDS: LASIX 80 MG IV ×2 (09:07→15:37)
[2024-03-01] MEDS: HYDROPHOR 1 APPLIC TOPICAL (09:08)
--- NOTE | 2024-03-01 12:39 | W.PN.HOSP.TC ---
Today's Communication/Plan
-
Maintained on IV diuretics
Follow creatinine
Continue wound care
Eventual SNF rehab
Assessment / Plan
Assessment / Plan
Acute on chronic HFpEF
Non Ischemic Troponin Elevation
Essential HTN
-she is on Lasix 40mg PO QD at home
-last TTE 08/29 with EF 60-65%, well seated TAVR with trace AR
-trend Troponin
-maintain on irbesartan/Aldactone
-BUN elevated, creatinine stable. Weight trending down.
-On IV lasix 80mg/bid
Severe venous stasis dermatitis
Lower extremity cellulitis
-superficial wound culture growing Pseudomonas/enterococcus
-Wound care nurse evaluated, pictures reviewed. Patient have extensive dry/scabbed skin, patient underwent pedicure with aggressive scrubbing of the skin causing epithelial denuding.
-Finished short course of Ancef/doxycycline continue doing local wound care
Essential HTN
-Maintained on irbesartan/Aldactone in nature
Hyponatremia
-Presumed combination of euvolemic/hypervolemic
-fluid restriction changed to 40 ounce
-trending down, if further trend down will involve nephrology for possible tolvaptan dosing
Metabolic alkalosis
-with diuretics use related.
CHB s/p PPM 12/30
s/p TAVR
-repeat TTE routinely
DVT ppx: Lovenox
Code: DNR
Anticipated Discharge: 24 - 48 hours
Subjective/Interval History
-
Date of Service: March 01, 2024
No dyspnea, remains on oxygen
No chest discomfort
Objective Data
-
Labs:
Laboratory Results
03/01/24
07:12
Sodium 128 L
Potassium 4.2
Chloride 83 L
Carbon Dioxide 38 H
BUN 31 H
Creatinine 0.7
Glucose 119 H
Calcium 8.3 L
Vital Signs:
Vital Signs
Temp Pulse Resp BP Pulse Ox
98.7 F 74 18 97/61 94
03/01/24 11:00 03/01/24 11:00 03/01/24 11:00 03/01/24 11:00 03/01/24 11:00
I&O
02/29/24 03/01/24 03/02/24
06:59 06:59 06:59
Intake Total 922 / 922 1250 / 1250
Output Total 600 / 600
Balance 922 / 922 650 / 650
Review of Systems
-
Respiratory: Reports No Symptoms
Cardiac: Reports No Symptoms
Abdomen/GI: Reports No Symptoms
Physical Exam
-
General: Morbidly Obese
HEENT: Negative Oxygen
Respiratory: Clear to Auscultation
Cardiac: Regular Rhythm and S1/S2; Negative Murmur
GI: Soft, Nontender and Nondistended
Musculoskeletal: Edema, Right Lower Extrem, Edema, Left Lower Extrem and Other (Superificial skin wound, b/l DREAD wrap in place)
Neuro: Awake, Alert and Oriented
--- NOTE | 2024-03-01 12:46 | W.PN.CARDCBS ---
Addendum entered and electronically signed by Obi Hutchinson DO 03/01/24 16:49:
I saw and examined the patient.
The Laundry Room Attendant's note was reviewed and I agree with the note.
Comment:
Plan:
Cont IV lasix diuresis with lasix 80 mg IV BID
Add Metolazone 2.5 mg today
Her dry wt is unclear.
Resume Toprol which she had taken as outpt.
Cont GDMT
Med tx of nonMI trop
Reviewed her echo 02/27/24: EF 75%. Severe left atrial dilation, mild right atrial dilation. Well-seated number 26 mm Baumann BJ valve with peak/mean gradient 16/8 mmHg and no paravalvular leak.
Cont wound care LE
Original Note:
Today's Communication / Plan
-
Will give a dose of metolazone 2.5 mg once with this afternoon's dose of Lasix 80 mg IV BID
Adding Toprol XL 12.5 mg daily today
51 min face to face and coordination of care
Impression / Plan
-
Primary Rn New Graduate: Dr. Bailey of [facility]
Impression:
Presented 02/24/2024 with shortness of breath and edema
Acute on chronic HFpEF
chronic venous insufficiency w/ profound LE edema and RLE wound
s/p Medtronic dual-chamber permanent pacemaker utilizing the left bundle branch for conduction system pacing due to CHB 12/16/2022
RBBB
hx NSVT/LBBB
s/p left Transfemoral TAVR 26mm Baumann Bj 3 Ultra for severe on 12/04/20
h/o heart block with A-V dissociation s/p TAVR
CAD s/p complicated LAD PCI 09/03/20
h/o urgent pericardiocentesis and small vessel distal embolization 09/03/20
HTN
HLD
History of NSVT by prior holter monitor
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
History of Gastrostomy
Peripheral neuropathy
Former smoker
Chronic back pain
History of Hysterectomy
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
Osteoarthritis of B/L knees s/p L TKR 08/2021
Obesity
Efrain syndrome
Lexiscan stress test at [facility]: Mild apical ischemia, preserved EF, intermediate risk
Echo 08/2022: EF 60-65%, status post #26 TAVR R with mean gradient of 10, trace aortic regurgitation, trace TR with PA pressure 43
Echo 02/27/24: EF 75%. Severe left atrial dilation, mild right atrial dilation. Well-seated number 26 mm Baumann BJ valve with peak/mean gradient 16/8 mmHg and no paravalvular leak.
Plan:
-Patient has not stood on a scale at home in a while and says she does not know what her dry weight is. Dry weight at last d/c 12/21/22 was 223 lbs, but that was over a year ago. Patient able to stand for standing scale weight daily over the last 2
days and weight is only down 1 lb despite Lasix 80 mg IV BID. Will add metolazone 2.5 mg PO x1 with afternoon dose of Lasix on 03/01/24.
-Patient was taking Lasix 40 mg PO daily prior to admission.
-EF 75% by echo 02/27/24 and TAVR well seated with peak/mean 16/8 mmHg
-Patient was previously on Toprol XL, but it was stopped by her primary nutrition professor as an outpatient. Will start Toprol XL 12.5 mg daily 03/01/24.
-Outpatient dose of irbesartan 300 mg daily has been continued.
-Outpatient dose of spironolactone 25 mg MWF has been continued.
-Troponin peaked at 0.061. No chest pain. Will manage as a nonischemic myocardial injury Troponin elevation due to acute HF.
-Patient was living independently prior to admission, but reports that she is going to rehab at d/c.
HPI: She presents today 02/24/2024 with worsening shortness of breath and increasing LE edema. She has B/L LE wounds and follows with home wound care. She does not weigh herself daily and is not sure if she has gained weight. Was supposed to have
appointment with her nutrition professor, Dr. Jacob Bailey, this week but could not get out of the house due to immobility from LE edema.
Admits to orthopnea, PND. No fevers, chills. No palps, lightheadedness, syncope. No chest pain
Progress Note - Rn New Graduate
Subjective
Date of Service: March 01, 2024
Reports improved LE edema
Objective
Labs:
02/27/24 06:48
03/01/24 07:12
Labs
Hgb 12.6 g/dL (12.0-16.0) 02/27/24 06:48
Hct 37.7 % (37.0-47.0) 02/27/24 06:48
Plt Count 232 10^3/uL (130-400) 02/27/24 06:48
Sodium 128 mmol/L (135-145) L 03/01/24 07:12
Potassium 4.2 mmol/L (3.5-5.1) 03/01/24 07:12
BUN 31 mg/dl (7-17) H 03/01/24 07:12
Creatinine 0.7 mg/dL (0.6-1.0) 03/01/24 07:12
Glucose 119 mg/dl (70-99) H 03/01/24 07:12
Vital Signs and I&O:
Vital Signs
Temp Pulse Resp BP Pulse Ox
98.7 F 74 18 97/61 94
03/01/24 11:00 03/01/24 11:00 03/01/24 11:00 03/01/24 11:00 03/01/24 11:00
Vital Signs
Temp Pulse Resp BP Pulse Ox
98.7 F 74 18 97/61 94
03/01/24 11:00 03/01/24 11:00 03/01/24 11:00 03/01/24 11:00 03/01/24 11:00
Intake & Output
02/28/24 02/29/24 03/01/24 03/02/24
06:59 06:59 06:59 06:59
Intake Total 1200 / 1200 922 / 922 1250 / 1250
Output Total 500 / 500 600 / 600
Balance 700 / 700 922 / 922 650 / 650
Physical Exam
Physical Exam
GEN: NAD. AAO x3
HEENT: EOMI
LUNGS: 2 L NC. No audible wheeze
CV: SR on tele.
ABD: ND
EXT: B/L LE DREAD wraps. +1 B/L LE edema.
NEURO: Gross non-focal
SKIN: No rash
[2024-03-01] MEDS: TOPROL XL 12.5 MG PO (15:35)
[2024-03-01] MEDS: ZAROXOLYN 2.5 MG PO (15:35)
[2024-03-01] MEDS: ROXICODONE 5 MG PO (15:36)
[2024-03-01] MEDS: LOVENOX 40 MG SC (17:34)
[2024-03-01] MEDS: SENOKOT-S PO (19:54)
[2024-03-01] MEDS: MELATONIN 10 MG PO (22:54)
[2024-03-01] MEDS: ROXICODONE 10 MG PO (22:55)
[2024-03-02 03:00] VITALS: BP 143/60
[2024-03-02] MEDS: ROXICODONE 10 MG PO ×4 (03:03→22:08)
[2024-03-02 06:00] VITALS: BMI 40.3
[2024-03-02 07:36] VITALS: BP 153/66
[2024-03-02 08:02] LABS: Blood Urea Nitrogen 32 mg/dl (7-17); Calcium 8.4 mg/dl (8.4-10.2); Chloride 81 mmol/L (98-107); Estimated Creatinine Clearance 79 ml/min; Glucose 116 mg/dl (70-99); Magnesium 2.1 mg/dl (1.6-2.3); Sodium 127 mmol/L (135-145); eGFR > 60.00
[2024-03-02 08:37] LABS: Carbon Dioxide 39 mmol/L (22-30)
[2024-03-02] MEDS: DESENEX/MITRAZOL/ZEASORB 1 APPLIC TOPICAL ×2 (09:02→20:27)
[2024-03-02] MEDS: LASIX 80 MG IV ×2 (09:31→17:04)
[2024-03-02] MEDS: AVAPRO 300 MG PO (09:31)
[2024-03-02] MEDS: SENOKOT-S 1 TABLET PO (09:31)
[2024-03-02] MEDS: TOPROL XL 12.5 MG PO (09:31)
[2024-03-02] MEDS: ALDACTONE 25 MG PO (09:33)
[2024-03-02] MEDS: HYDROPHOR 1 APPLIC TOPICAL (09:35)
[2024-03-02] MEDS: MIRALAX PO (09:44)
[2024-03-02 11:00] VITALS: BP 93/43
--- NOTE | 2024-03-02 11:13 | W.PN.CARDCBS ---
Addendum entered and electronically signed by Julio Cesar Leyva MD 03/02/24 16:01:
I saw and examined the patient.
The Filling Machine Tender's note was reviewed and I agree with the note.
Comment: Briefly, 78-year-old woman past medical history of heart failure with preserved ejection fraction presenting with significant lower extremity edema and overlying leg wounds
Volume status assessment via physical exam is challenging however her weight is down ~25lbs with IV diuresis
Given hyponatremia and rising BUN suspect that she is becoming intravascularly depleted
proBNP is lower today at 1600
Recommend transitioning to oral diuretics tomorrow
Previously on Lasix however suspect that Bumex will be more effective, plan for 2 mg twice daily daily of Bumex
Also recommend changing spironolactone dosing to 12.5 mg daily
We will sign off, please recall as needed
Patient to follow-up with her primary hotel controller at [facility]
Original Note:
Today's Communication / Plan
-
change diuretic to oral Bumex starting tomorrow
cont to monitor Na
renal consult if contiues to trend down.
Impression / Plan
-
Primary Plastic Sheets Supervisor: Dr. Bailey of [facility]
Impression:
Presented 02/24/2024 with shortness of breath and edema
Acute on chronic HFpEF
chronic venous insufficiency w/ profound LE edema and RLE wound
hyponatremia
s/p Medtronic dual-chamber permanent pacemaker utilizing the left bundle branch for conduction system pacing due to CHB 12/16/2022
RBBB
hx NSVT/LBBB
s/p left Transfemoral TAVR 26mm Baumann Bj 3 Ultra for severe on 12/04/20
h/o heart block with A-V dissociation s/p TAVR
CAD s/p complicated LAD PCI 09/03/20
h/o urgent pericardiocentesis and small vessel distal embolization 09/03/20
HTN
HLD
History of NSVT by prior holter monitor-previously on beta rakan, stopped by primary hotel controller
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
History of Gastrostomy
Peripheral neuropathy
Former smoker
Chronic back pain
History of Hysterectomy
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
Osteoarthritis of B/L knees s/p L TKR 08/2021
Obesity
Efrain syndrome
Lexiscan stress test at [facility]: Mild apical ischemia, preserved EF, intermediate risk
Echo 08/2022: EF 60-65%, status post #26 TAVR R with mean gradient of 10, trace aortic regurgitation, trace TR with PA pressure 43
Echo 02/27/24: EF 75%. Severe left atrial dilation, mild right atrial dilation. Well-seated number 26 mm Baumann BJ valve with peak/mean gradient 16/8 mmHg and no paravalvular leak.
Plan:
-Today's wt inaccurate as was bed scale. Admit wt 244 lbs, was down to 235 lbs 03/01/2024, today 242 lbs. Reweigh on standing scale
-home dry wt unknown, Dry weight at last d/c 12/21/22 was 223lbs
-has been on Lasix 80 mg IV bid. Na trending down 127 today.
-Patient was taking Lasix 40 mg PO daily prior to admission.
-BUN/creat 32/0.7
-change diuretic to oral Bumex starting tomorrow, 2 mg BID-I ordered
-change Spironolactone to 12.5 mg daily, rather than 25 mg MWF-I ordered
-EF 75% by echo 02/27/24 and TAVR well seated with peak/mean 16/8 mmHg
-personally reviewed telmetry: Vpaced, 9 beat run WCT last night, HR~120s.
-Toprol XL 12.5 mg daily started 03/01/24.
-Outpatient dose of irbesartan 300 mg daily has been continued.
-Troponin peaked at 0.061. No chest pain. Will manage as a nonischemic myocardial injury Troponin elevation due to acute HF.
-Patient was living independently prior to admission, but reports that she is going to rehab at d/c.
HPI: She presents today 02/24/2024 with worsening shortness of breath and increasing LE edema. She has B/L LE wounds and follows with home wound care. She does not weigh herself daily and is not sure if she has gained weight. Was supposed to have
appointment with her hotel controller, Dr. Jacob Bailey, this week but could not get out of the house due to immobility from LE edema.
Admits to orthopnea, PND. No fevers, chills. No palps, lightheadedness, syncope. No chest pain
Progress Note - Plastic Sheets Supervisor
Subjective
Date of Service: March 02, 2024
Na trending down, 127 today
wt as of yest down 9 lbs, wt was up 7 lbs today but probably inaccurate due to bed scale
denies SOB, PND, orthopnea
Objective
Labs:
02/27/24 06:48
03/02/24 06:44
Labs
Hgb 12.6 g/dL (12.0-16.0) 02/27/24 06:48
Hct 37.7 % (37.0-47.0) 02/27/24 06:48
Plt Count 232 10^3/uL (130-400) 02/27/24 06:48
Sodium 127 mmol/L (135-145) L 03/02/24 06:44
Potassium 4.0 mmol/L (3.5-5.1) 03/02/24 06:44
BUN 32 mg/dl (7-17) H 03/02/24 06:44
Creatinine 0.7 mg/dL (0.6-1.0) 03/02/24 06:44
Glucose 116 mg/dl (70-99) H 03/02/24 06:44
Vital Signs and I&O:
Vital Signs
Temp Pulse Resp BP Pulse Ox
97.3 F 68 20 153/66 96
03/02/24 07:36 03/02/24 07:36 03/02/24 07:36 03/02/24 07:36 03/02/24 07:36
Vital Signs
Temp Pulse Resp BP Pulse Ox
97.3 F 68 20 153/66 96
03/02/24 07:36 03/02/24 07:36 03/02/24 07:36 03/02/24 07:36 03/02/24 07:36
Intake & Output
02/29/24 03/01/24 03/02/24 03/03/24
06:59 06:59 06:59 06:59
Intake Total 922 / 922 1250 / 1250 960 / 960
Output Total 600 / 600 1400 / 1400
Balance 922 / 922 650 / 650 -440 / -440
Physical Exam
Physical Exam
GEN: No distress, awake, Ox3
HEENT: supple, anicteric, mmm
LUNGS: CTA, no wheezes/rales
CV: Reg, S1/S2, no murmur
ABD: soft, BS+, NT/ND
EXT: 3+ B/L LE edema to thighs, B/L LE with dressings
NEURO: Gross non-focal
SKIN: No rash
[2024-03-02 12:48] VITALS: BMI 36.7
[2024-03-02 13:27] LABS: NT-proBNP 1670 pg/ml
--- NOTE | 2024-03-02 14:04 | W.PN.HOSP.TC ---
Today's Communication/Plan
-
Continue wound care
Follow standing weight scale
Continue diuretics
Assessment / Plan
Assessment / Plan
Acute on chronic HFpEF
Non Ischemic Troponin Elevation
Essential HTN
-she is on Lasix 40mg PO QD at home
-last TTE 08/29 with EF 60-65%, well seated TAVR with trace AR
-trend Troponin
-maintain on irbesartan/Aldactone
-On IV lasix 80mg/bid
-Getting as needed dose of metolazone as well
-Continue standing scale weight
Severe venous stasis dermatitis
Lower extremity cellulitis
-superficial wound culture growing Pseudomonas/enterococcus
-Wound care nurse evaluated, pictures reviewed. Patient have extensive dry/scabbed skin, patient underwent pedicure with aggressive scrubbing of the skin causing epithelial denuding.
-Finished short course of Ancef/doxycycline continue doing local wound care
Essential HTN
-Maintained on irbesartan/Aldactone in nature
Hyponatremia
-Presumed combination of euvolemic/hypervolemic
-fluid restriction changed to 40 ounce
-trending down, if further trend down will involve nephrology for possible tolvaptan dosing
Metabolic alkalosis
-with diuretics use related.
CHB s/p PPM 12/30
s/p TAVR
-repeat TTE routinely
DVT ppx: Lovenox
Code: DNR
Anticipated Discharge: 24 - 48 hours
Subjective/Interval History
-
Date of Service: March 02, 2024
no issues overnight
pain is better
Objective Data
-
Labs:
Laboratory Results
03/02/24
06:44
Sodium 127 L
Potassium 4.0
Chloride 81 L
Carbon Dioxide 39 H
BUN 32 H
Creatinine 0.7
Glucose 116 H
Calcium 8.4
Vital Signs:
Vital Signs
Temp Pulse Resp BP Pulse Ox
97.6 F 66 20 93/43 92
03/02/24 11:00 03/02/24 11:00 03/02/24 11:00 03/02/24 11:00 03/02/24 11:00
I&O
03/01/24 03/02/24 03/03/24
06:59 06:59 06:59
Intake Total 1250 / 1250 960 / 960
Output Total 600 / 600 1400 / 1400
Balance 650 / 650 -440 / -440
Review of Systems
-
Respiratory: Reports No Symptoms
Cardiac: Reports No Symptoms
Abdomen/GI: Reports No Symptoms
Physical Exam
-
General: Morbidly Obese
HEENT: Negative Oxygen
Respiratory: Clear to Auscultation
Cardiac: Regular Rhythm and S1/S2; Negative Murmur
GI: Soft, Nontender and Nondistended
Musculoskeletal: Edema, Right Lower Extrem, Edema, Left Lower Extrem and Other (Superificial skin wound, b/l DREAD wrap in place)
Neuro: Awake, Alert and Oriented
[2024-03-02 15:35] VITALS: BP 116/73
--- NOTE | 2024-03-02 15:40 | CM ---
Chart reviewed. Pt cont to be recommended for skilled rehab at d/c
Per chart, referred to [facility]. Per [facility] admissions, no available beds
CM spoke w/ pt regarding needing additional SNF options. Pt stated she still wants to explore [facility] closer to her d/c but is open to other facilities if they can offer her a private room. Pt understands that most facilities only offers
semi-private but would like for CM to make efforts in locating facility that can offer her a private room.
CM sent additional referrals via [facility]
Plan: SNF; pending accepting facility.
[2024-03-02] MEDS: LOVENOX 40 MG SC (17:04)
[2024-03-02 19:25] VITALS: BP 91/46
[2024-03-02] MEDS: SENOKOT-S PO (20:28)
[2024-03-02] MEDS: MELATONIN 10 MG PO (22:08)
[2024-03-02 23:00] VITALS: BP 103/51
[2024-03-03] MEDS: ROXICODONE 10 MG PO ×4 (02:43→22:28)
[2024-03-03 06:00] VITALS: BMI 39.5
[2024-03-03 07:11] VITALS: BP 119/64
[2024-03-03 07:54] LABS: Blood Urea Nitrogen 39 mg/dl (7-17); Calcium 8.4 mg/dl (8.4-10.2); Chloride 77 mmol/L (98-107); Estimated Creatinine Clearance 55 ml/min; Glucose 119 mg/dl (70-99); Potassium 4.4 mmol/L (3.5-5.1); Sodium 128 mmol/L (135-145); eGFR 56.95
[2024-03-03 08:05] LABS: Carbon Dioxide 36 mmol/L (22-30)
[2024-03-03] MEDS: MIRALAX 17 GRAMS PO (08:30)
[2024-03-03] MEDS: ALDACTONE 12.5 MG PO (08:30)
[2024-03-03] MEDS: TOPROL XL 12.5 MG PO (08:30)
[2024-03-03] MEDS: AVAPRO 300 MG PO (08:30)
[2024-03-03] MEDS: SENOKOT-S 1 TABLET PO (08:30)
[2024-03-03] MEDS: BUMEX 2 MG PO ×2 (08:30→20:48)
[2024-03-03] MEDS: HYDROPHOR 1 APPLIC TOPICAL (08:31)
[2024-03-03] MEDS: DESENEX/MITRAZOL/ZEASORB 1 APPLIC TOPICAL ×2 (08:32→20:52)
[2024-03-03 11:23] LABS: COVID-19 Antigen Negative (Negative)
[2024-03-03] MEDS: MORPHINE SULFATE 1 MG IV (13:03)
--- NOTE | 2024-03-03 13:42 | W.PN.HOSP.TC ---
Today's Communication/Plan
-
medically stable for Discharge planning for SNF rehab
Assessment / Plan
Assessment / Plan
Acute on chronic HFpEF
Non Ischemic Troponin Elevation
Essential HTN
-she is on Lasix 40mg PO QD at home
-last TTE 08/29 with EF 60-65%, well seated TAVR with trace AR
-trend Troponin
-maintain on irbesartan/Aldactone
-Patient IV Lasix has been changed to oral Bumex by cardiology
-Creatinine has minimal bump of 1 today, continue monitoring
Severe venous stasis dermatitis
Lower extremity cellulitis
-superficial wound culture growing Pseudomonas/enterococcus
-Wound care nurse evaluated, pictures reviewed. Patient have extensive dry/scabbed skin, patient underwent pedicure with aggressive scrubbing of the skin causing epithelial denuding.
-Finished short course of Ancef/doxycycline continue doing local wound care
-Prewound care morphine as needed dosing ordered
Essential HTN
-Maintained on irbesartan/Aldactone in nature
Hyponatremia
-Presumed combination of euvolemic/hypervolemic
-fluid restriction changed to 40 ounce
-trending down, if further trend down will involve nephrology for possible tolvaptan dosing
Metabolic alkalosis
-with diuretics use related.
CHB s/p PPM 12/30
s/p TAVR
-repeat TTE routinely
DVT ppx: Lovenox
Code: DNR
Anticipated Discharge: Today
Subjective/Interval History
-
Date of Service: March 03, 2024
Resting comfortably in bed
Minimally disoriented today
Remains on 2 L oxygen Rizal cannula
Reported sleep disturbance
Objective Data
-
Labs:
Laboratory Results
03/03/24
06:12
Sodium 128 L
Potassium 4.4
Chloride 77 L
Carbon Dioxide 36 H
BUN 39 H
Creatinine 1.0
Glucose 119 H
Calcium 8.4
Vital Signs:
Vital Signs
Temp Pulse Resp BP Pulse Ox
98.6 F 72 16 119/64 94
03/03/24 07:11 03/03/24 07:11 03/03/24 07:11 03/03/24 07:11 03/03/24 07:11
I&O
03/02/24 03/03/24 03/04/24
06:59 06:59 06:59
Intake Total 960 / 960 660 / 660 200 / 200
Output Total 1400 / 1400 1200 / 1200 700 / 700
Balance -440 / -440 -540 / -540 -500 / -500
Review of Systems
-
Respiratory: Reports No Symptoms
Cardiac: Reports No Symptoms
Abdomen/GI: Reports No Symptoms
Physical Exam
-
General: Morbidly Obese
HEENT: Negative Oxygen
Respiratory: Clear to Auscultation
Cardiac: Regular Rhythm and S1/S2; Negative Murmur
GI: Soft, Nontender and Nondistended
Musculoskeletal: Edema, Right Lower Extrem, Edema, Left Lower Extrem and Other (Superificial skin wound, b/l DREAD wrap in place)
Neuro: Awake, Alert and Oriented
[2024-03-03 15:05] VITALS: BP 105/51
[2024-03-03] MEDS: LOVENOX 40 MG SC (17:24)
[2024-03-03] MEDS: SENOKOT-S PO (20:39)
[2024-03-03] MEDS: MELATONIN 10 MG PO (22:29)
[2024-03-03 23:43] VITALS: BP 104/55
[2024-03-04] MEDS: ROXICODONE 5 MG PO ×2 (01:08→22:16)
[2024-03-04] MEDS: TYLENOL 1000 MG PO (01:08)
[2024-03-04 06:00] VITALS: BMI 38.1
[2024-03-04] MEDS: ROXICODONE 10 MG PO ×3 (06:24→20:12)
--- NOTE | 2024-03-04 06:27 | PTCARENOTE ---
Patient refused bilateral leg wound care. Patient stated 'The morphine doesn't do anything'. Patient was educated on infection prevention and need for daily wound care. Patient also pulled off her IV so she could not receive morphine anyhow. IV team
notified to place new peripheral line.
[2024-03-04 07:31] VITALS: BP 99/50
[2024-03-04 07:36] LABS: Blood Urea Nitrogen 46 mg/dl (7-17); Calcium 8.9 mg/dl (8.4-10.2); Carbon Dioxide 40 mmol/L (22-30); Chloride 78 mmol/L (98-107); Estimated Creatinine Clearance 60 ml/min; Glucose 116 mg/dl (70-99); Potassium 4.6 mmol/L (3.5-5.1); Sodium 124 mmol/L (135-145); eGFR > 60.00
[2024-03-04] MEDS: ALDACTONE 12.5 MG PO (09:58)
[2024-03-04] MEDS: SENOKOT-S 1 TABLET PO (09:58)
[2024-03-04] MEDS: BUMEX 2 MG PO (09:58)
[2024-03-04] MEDS: TOPROL XL 12.5 MG PO (09:58)
[2024-03-04] MEDS: AVAPRO 300 MG PO (09:58)
[2024-03-04] MEDS: MORPHINE SULFATE 1 MG IV (12:01)
[2024-03-04] MEDS: MIRALAX PO (12:18)
--- NOTE | 2024-03-04 12:59 | W.CON.NEPH ---
Consultation
-
Date/Time Consultation Requested: 03/04/2024 12 PM
Date/Time Consultation Performed: 03/04/2024 1 PM
Requesting Provider: Dr. Campa
Performing Provider: Dr. Randall
Reason for Consultation: Hyponatremia
Medical History
-
Chief Complaint: Shortness of breath
History of Present Illness:
This is an 78-year-old female with heart block with pacemaker, heart failure with preserved ejection fraction on chronic diuretic therapy, coronary disease with stenting in the past. She presents with worsening shortness of breath over the past
month. She has been missing Lasix at home and does not weigh herself. She was felt to be in heart failure at the time of admission. There is also concern that she had lower extremity cellulitis given the severe edema. She received antibiotics
for her cellulitis. Her sodium level, 133 at the time of admission has now dropped to 124 after significant diuresis.
Past Medical History
1. Osteoarthritis,
2. Hypertension.
3. Coronary artery disease/myocardial infarction, status post PCI
� � with complicated stent to LAD, 08/2020, with urgent
� � pericardiocentesis and small vessel distal embolization.
4. History of non-NC troponin elevation, secondary to hypertensive
� � urgency 08/2021.
5. Chronic left bundle branch block.
6. PVCs, asymptomatic.
7. Nonsustained ventricular tachycardia.
8. Congestive heart failure, preserved ejection fraction.
9. Severe aortic stenosis, status post bioprosthetic TAVR.
10. Chronic venous insufficiency with left lower extremity ulcer,
� � � 11/2021, treated by [facility].
11. Restrictive lung disease.
12. 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
� � � respiratory failure and tracheostomy with residual tracheal
� � � stenosis.
13. COVID-19 pneumonia 06/2021.
14. Chronic dyspnea on exertion.
15. GERD.
16. Peripheral neuropathy.
17. Uterine and vaginal prolapse, status post abdominal
� � � sacrocolpopexy 2010.
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
19. Right-sided Efrain syndrome.
1. Left total knee arthroplasty
2. Left wrist open reduction internal fixation.
5. Cholecystectomy.
6. Incisional hernia repair.
7. Hysterectomy.
8. Abdominal sacrocolpopexy.
9. Tracheostomy and subsequent removal.
10.right total knee replacement
Social History
Tobacco: Former Smoker
Alcohol: None
Family History
Family History: Not Pertinent
Allergies / Home Medications
Allergy/AdvReac Type Severity Reaction Status Date / Time
ciprofloxacin Allergy tendon Verified 08/15/23 14:07
rupture
house dust Allergy sneezing, Verified 08/15/23 14:07
nasal
drip,
congestion
house dust mite Allergy sneezing, Verified 08/15/23 14:07
nasal
drip,
congestion
levofloxacin Allergy Tendon Verified 08/15/23 14:07
rupture
mold Allergy sneezing, Verified 08/15/23 14:07
nasal
drip,
congestion
moxifloxacin Allergy Tendon Verified 08/15/23 14:07
rupture
mupirocin Allergy Pharmacy Verified 08/15/23 14:07
to Review
pollen extracts Allergy sneezing, Verified 08/15/23 14:07
nasal
drip,
congestion
Quinolones Allergy Tendon Verified 08/15/23 14:07
rupture
�Medication �Instructions �Recorded �Confirmed �Type
acetaminophen 500 mg tablet 1,000 mg PO HSPRN PRN mild pain 08/12/22 02/24/24 History
(Acetaminophen Extra Strength)
melatonin 5 mg tablet 10 mg PO HS Sleep 08/12/22 02/24/24 History
furosemide 40 mg tablet 40 mg PO DAILY #30 tabs 08/24/22 02/24/24 Rx
spironolactone 25 mg tablet 25 mg PO MOWEFR Fluid 10/29/22 02/24/24 History
Retention/Swelling
irbesartan 300 mg tablet 300 mg PO DAILY Blood pressure #1 11/28/22 02/24/24 Rx
tab
tramadol 50 mg tablet 25 mg PO DAILYPRN PRN moderate pain 12/15/22 02/24/24 History
cephalexin 500 mg capsule 500 mg PO BID 02/24/24 02/24/24 History
docusate sodium 100 mg capsule 100 mg PO BIDPRN PRN constipation 02/24/24 02/24/24 History
ibuprofen 400 mg tablet 400 mg PO DAILYPRN PRN mild pain 02/24/24 02/24/24 History
Review of Systems
-
Bilateral leg pain
No chest pain or shortness of breath
All other systems: Negative unless noted
Physical Exam
Vital Signs
Vital Signs
Temp Pulse Resp BP Pulse Ox
98.0 F 65 18 99/50 98
03/04/24 07:31 03/04/24 07:31 03/04/24 07:31 03/04/24 07:31 03/04/24 07:31
Lab Results
WBC 8.5 10^3/uL (4.8-10.8) 02/27/24 06:48
RBC 4.26 10^6/uL (4.20-5.40) 02/27/24 06:48
Hgb 12.6 g/dL (12.0-16.0) 02/27/24 06:48
Hct 37.7 % (37.0-47.0) 02/27/24 06:48
Plt Count 232 10^3/uL (130-400) 02/27/24 06:48
Sodium 124 mmol/L (135-145) L 03/04/24 06:34
Potassium 4.6 mmol/L (3.5-5.1) 03/04/24 06:34
Chloride 78 mmol/L (98-107) L 03/04/24 06:34
Carbon Dioxide 40 mmol/L (22-30) H 03/04/24 06:34
BUN 46 mg/dl (7-17) H 03/04/24 06:34
Creatinine 0.9 mg/dL (0.6-1.0) 03/04/24 06:34
eGFR > 60.00 03/04/24 06:34
Glucose 116 mg/dl (70-99) H 03/04/24 06:34
Calcium 8.9 mg/dl (8.4-10.2) 03/04/24 06:34
Gto-O-Dyitzcxvbss Pept 1670 pg/ml 03/02/24 06:44
Albumin 3.0 g/dl (3.5-5.0) L 02/25/24 09:47
Laboratory Tests
12/20/22
04:08
Sodium 133 L
Physical Exam
Patient is awake alert oriented and in no distress. Mood and affect were pleasant, insight and judgment were good. Pupils are equal round and reactive to light, extraocular movements are intact, sclera were anicteric. Hearing was normal, ears and
nose are intact. Oropharynx was clear. Neck was supple with trachea midline and no thyromegaly. Heart was regular rate and rhythm without rubs. Lower extremities with 1+ edema. Lungs were clear to auscultation bilaterally and with normal
excursion. Abdomen was soft, nontender, with normal active bowel sounds, and no hepatosplenomegaly. Skin was without rash and with normal turgor.
Data Reviewed
-
Radiology: Image Personally Visualized and interpreted (Chest x-ray on 02/24/2024 by my reading shows no acute disease)
Medical Tests (Nuc Med, Echo etc): Image Personally Visualized and interpreted (EKG on 02/24/2024 by my reading shows a sensed V paced rhythm) and Report Reviewed by me (Echocardiogram on 02/27/2024 shows ejection fraction 75%, severe atrial
dilatation)
Labs: Labs Reviewed by me
Old Records: Reviewed
Assessment/Plan
-
Assessment
Hyponatremia acute on chronic
Heart failure preserved ejection fraction
Venous stasis
Lower extremity cellulitis
Pacemaker
Aortic stenosis status post TAVR
Edema
Plan
She is likely still volume overloaded though not excessively so
Hyponatremia is likely a consequence of volume overload in the setting of heart failure preserved ejection fraction
Bumex being managed by cardiology
Will offer Samsca 15 mg today
Follow BMP
Maintain fluid restriction
[2024-03-04] MEDS: HYDROPHOR 1 APPLIC TOPICAL (13:32)
[2024-03-04] MEDS: DESENEX/MITRAZOL/ZEASORB 1 APPLIC TOPICAL ×2 (13:32→20:12)
[2024-03-04] MEDS: SAMSCA 15 MG PO (14:02)
--- NOTE | 2024-03-04 14:50 | W.PN.HOSP.TC ---
Today's Communication/Plan
-
nephro eval
continue diuretics
snf rehab earliest tomorrow
Assessment / Plan
Assessment / Plan
Acute on chronic HFpEF
Non Ischemic Troponin Elevation
Essential HTN
-she is on Lasix 40mg PO QD at home
-last TTE 08/29 with EF 60-65%, well seated TAVR with trace AR
-trend Troponin
-maintain on irbesartan/Aldactone
-Patient to be transition to Bumex yesterday
-Creatinine remains stable
Severe venous stasis dermatitis
Lower extremity cellulitis
-superficial wound culture growing Pseudomonas/enterococcus
-Wound care nurse evaluated, pictures reviewed. Patient have extensive dry/scabbed skin, patient underwent pedicure with aggressive scrubbing of the skin causing epithelial denuding.
-Finished short course of Ancef/doxycycline continue doing local wound care
-Prewound care morphine as needed dosing ordered
Essential HTN
-Maintained on irbesartan/Aldactone in nature
Hyponatremia
Minimal metabolic encephalopathy
-Presumed combination of euvolemic/hypervolemic
-fluid restriction changed to 40 ounce
-Sodium trended down to 124, patient having some slowness of thought process
-Nephrology help requested
Metabolic alkalosis
-with diuretics use related.
CHB s/p PPM 12/30
s/p TAVR
-repeat TTE routinely
DVT ppx: Lovenox
Code: DNR
Anticipated Discharge: 24 - 48 hours
Subjective/Interval History
-
Date of Service: March 04, 2024
Resting comfortably in bed
Minimally disoriented
Oxygen recommend remains 2-3 L through nasal cannula
Objective Data
-
Labs:
Laboratory Results
03/04/24
06:34
Sodium 124 L
Potassium 4.6
Chloride 78 L
Carbon Dioxide 40 H
BUN 46 H
Creatinine 0.9
Glucose 116 H
Calcium 8.9
Vital Signs:
Vital Signs
Temp Pulse Resp BP Pulse Ox
98.0 F 65 18 99/50 98
03/04/24 07:31 03/04/24 07:31 03/04/24 07:31 03/04/24 07:31 03/04/24 07:31
I&O
03/03/24 03/04/24 03/05/24
06:59 06:59 06:59
Intake Total 660 / 660 520 / 520
Output Total 1200 / 1200 1400 / 1400
Balance -540 / -540 -880 / -880
Review of Systems
-
Respiratory: Reports No Symptoms
Cardiac: Reports No Symptoms
Abdomen/GI: Reports No Symptoms
Physical Exam
-
General: Morbidly Obese
HEENT: Negative Oxygen
Respiratory: Clear to Auscultation
Cardiac: Regular Rhythm and S1/S2; Negative Murmur
GI: Soft, Nontender and Nondistended
Musculoskeletal: Edema, Right Lower Extrem, Edema, Left Lower Extrem and Other (Superificial skin wound, b/l DREAD wrap in place)
Neuro: Awake, Alert and Oriented
[2024-03-04 15:31] VITALS: BP 106/47
[2024-03-04] MEDS: LOVENOX 40 MG SC (17:21)
[2024-03-04 20:11] VITALS: BP 93/49; BP 94/50
[2024-03-04] MEDS: SENOKOT-S PO (20:11)
[2024-03-04] MEDS: BUMEX PO (20:45)
--- NOTE | 2024-03-04 21:00 | PTCARENOTE ---
Pt's manual BP at 2030 tonight was 94/50, HR in the 80s. Pt is asymptomatic apart from lower back and b/l leg pain. Pt due to receive 2000 dose of Bumex. DALE Orozco notified, order placed to hold Bumex for SBP < 100. Will hold dose tonight
d/t hold parameters.
[2024-03-04] MEDS: MELATONIN 10 MG PO (22:16)
[2024-03-04 23:21] VITALS: BP 101/47
[2024-03-05 06:00] VITALS: BMI 38.1
--- NOTE | 2024-03-05 06:00 | PTCARENOTE ---
Patient refusing wound care at this time, stating 'it's too early for me to be in that much pain'. Patient is still refusing wound care despite PRN oxycodone 10mg admin. Will pass along to day shift to attempt WOC later on.
[2024-03-05] MEDS: ROXICODONE 10 MG PO ×2 (06:08→21:06)
[2024-03-05 07:46] VITALS: BP 106/52
[2024-03-05] MEDS: TOPROL XL 12.5 MG PO (08:17)
[2024-03-05] MEDS: MIRALAX 17 GRAMS PO (08:18)
[2024-03-05] MEDS: BUMEX 2 MG PO (08:18)
[2024-03-05] MEDS: ALDACTONE 12.5 MG PO (08:18)
[2024-03-05] MEDS: AVAPRO 300 MG PO (08:18)
[2024-03-05] MEDS: SENOKOT-S 1 TABLET PO (08:19)
[2024-03-05] MEDS: DESENEX/MITRAZOL/ZEASORB 1 APPLIC TOPICAL ×2 (08:19→21:06)
[2024-03-05] MEDS: HYDROPHOR 1 APPLIC TOPICAL (08:19)
[2024-03-05 08:56] LABS: Blood Urea Nitrogen 47 mg/dl (7-17); Calcium 8.7 mg/dl (8.4-10.2); Chloride 76 mmol/L (98-107); Estimated Creatinine Clearance 54 ml/min; Glucose 125 mg/dl (70-99); Potassium 4.4 mmol/L (3.5-5.1); Sodium 126 mmol/L (135-145); eGFR 56.95
[2024-03-05 09:11] LABS: Carbon Dioxide 38 mmol/L (22-30)
[2024-03-05 12:35] VITALS: O2SAT 91
--- NOTE | 2024-03-05 13:17 | CM ---
report manager reviewed patient's chart and plan is for skilled nurse placement for PT/OT and woundcare, options reviewed and referrals sent, patient has been accepted at [facility] tomorrow per admissions, after 3pm, patient needs COVID testing
completed, physician aware.
Plan; Patient is for possible transfer to [facility] tomorrow after 3pm.
--- NOTE | 2024-03-05 13:17 | SUR.PHASEI ---
pt worked with PT, x3 assist to get OOB although pt was able to participate more, appeared fearful of falling and was therefore hesitant. Much encouragement and support provided.. Pt is OOB and in chair eating lunch. refusing WOC this AM, will
attempt again this afternoon.
[2024-03-05 15:01] VITALS: BP 107/55
--- NOTE | 2024-03-05 15:43 | W.PN.HOSP.TC ---
Today's Communication/Plan
-
repeat Samsca today
possible DC in 24 hours to SNF
Assessment / Plan
Assessment / Plan
Assessment:
Acute on chronic HFpEF
Non Ischemic Troponin Elevation
Essential HTN
- she is on Lasix 40mg PO QD at home
- last TTE 08/29 with EF 60-65%, well seated TAVR with trace AR
- trend Troponin
- maintain on irbesartan/Aldactone
- continue Bumex; BMP stable
Severe venous stasis dermatitis
Lower extremity cellulitis
- superficial wound culture growing Pseudomonas/enterococcus
- Wound care nurse evaluated, pictures reviewed. Patient have extensive dry/scabbed skin, patient underwent pedicure with aggressive scrubbing of the skin causing epithelial denuding.
- Finished short course of Ancef/doxycycline
- continue doing local wound care
- Prewound care morphine as needed dosing ordered
Essential HTN
- Maintained on irbesartan/Aldactone/bb
Hyponatremia
Minimal metabolic encephalopathy
- Presumed combination of euvolemic/hypervolemic
- fluid restriction
- s/p Samsca 15mg yesterday, 30mg ordered for today
- follow further Nephrology recs
Metabolic alkalosis
- with diuretics use related.
CHB s/p PPM 12/30
s/p TAVR
- repeat TTE routinely
DVT ppx: Lovenox
Code: DNR
Anticipated Discharge: 24 - 48 hours
Subjective/Interval History
-
Date of Service: March 05, 2024
no new complaints
Objective Data
-
Labs:
Laboratory Results
03/05/24
07:48
Sodium 126 L
Potassium 4.4
Chloride 76 L
Carbon Dioxide 38 H
BUN 47 H
Creatinine 1.0
Glucose 125 H
Calcium 8.7
Vital Signs:
Vital Signs
Temp Pulse Resp BP Pulse Ox
98.3 F 76 20 107/55 100
03/05/24 15:01 03/05/24 15:01 03/05/24 15:01 03/05/24 15:01 03/05/24 15:01
I&O
03/04/24 03/05/24 03/06/24
06:59 06:59 06:59
Intake Total 520 / 520 250 / 250 240 / 240
Output Total 1400 / 1400 500 / 500 500 / 500
Balance -880 / -880 -250 / -250 -260 / -260
Physical Exam
-
General: No Apparent Distress
HEENT: Normocephalic and Atraumatic
Respiratory: Negative Wheezes
Cardiac: Regular Rhythm and S1/S2
GI: Soft
Genito-urinary: No Costovertebral Tender
Musculoskeletal: No Edema
Neuro: AO x 3
Hematologic / Lymphatic: No Lymphadenopathy
Psych: Calm
Data Reviewed
-
Total Time Spent with Patient (in minutes): 44
Labs: Labs Reviewed by me
--- NOTE | 2024-03-05 15:45 | W.PN.NEPH.PH ---
Addendum entered and electronically signed by Ina Montes De Oca MD 03/05/24 15:52:
since BP are soft, decrease ARB dose
Original Note:
Today's Communication / Plan
-
samsca, cont bumex in am
Assessment/Plan
-
Assessment
Hyponatremia acute on chronic
Heart failure preserved ejection fraction
Venous stasis
Lower extremity cellulitis
Pacemaker
Aortic stenosis status post TAVR
Edema
Plan
Hypoantremia-slightly better post samsca, redose again
Hyponatremia is likely a consequence of volume overload in the setting of heart failure preserved ejection fraction
Bumex being managed by cardiology
Will offer Samsca 30 mg today, skip PM bumex dose today
Follow BMP
Maintain fluid restriction
monitor met alkalosis
Bps soft end but stable
-
-
Date of Service: March 05, 2024
CC / HPI / ROS
-
Chief Complaint:
hyponatremia
History of Present Illness:
sodium slow to improve to 126
wt no change
met alkalosis stable at 38
bp soft but stable
Review of Systems:
no sob at rest, off O2
no cp
poor appetite
Labs
-
Labs:
WBC 8.5 10^3/uL (4.8-10.8) 02/27/24 06:48
RBC 4.26 10^6/uL (4.20-5.40) 02/27/24 06:48
Hgb 12.6 g/dL (12.0-16.0) 02/27/24 06:48
Hct 37.7 % (37.0-47.0) 02/27/24 06:48
Plt Count 232 10^3/uL (130-400) 02/27/24 06:48
Sodium 126 mmol/L (135-145) L 03/05/24 07:48
Potassium 4.4 mmol/L (3.5-5.1) 03/05/24 07:48
Chloride 76 mmol/L (98-107) L 03/05/24 07:48
Carbon Dioxide 38 mmol/L (22-30) H 03/05/24 07:48
BUN 47 mg/dl (7-17) H 03/05/24 07:48
Creatinine 1.0 mg/dL (0.6-1.0) 03/05/24 07:48
eGFR 56.95 03/05/24 07:48
Glucose 125 mg/dl (70-99) H 03/05/24 07:48
Calcium 8.7 mg/dl (8.4-10.2) 03/05/24 07:48
Oqq-R-Jfrfeiofzxv Pept 1670 pg/ml 03/02/24 06:44
Albumin 3.0 g/dl (3.5-5.0) L 02/25/24 09:47
Physical Exam
-
Vital Signs:
Vital Signs
Temp Pulse Resp BP Pulse Ox
98.3 F 76 20 107/55 100
03/05/24 15:01 03/05/24 15:01 03/05/24 15:01 03/05/24 15:01 03/05/24 15:01
Cardiovascular:: Regular rate and rhythm
Respiratory:: Bilateral: Rales (left>right base)
Lung Excursion:: Normal
Abdomen:: Nontender and Soft
Extremity Edema:: +2: Bilateral:
Meeks Catheter: No
[2024-03-05 16:00] VITALS: BP 118/69; PULSE 72; O2SAT 91
[2024-03-05] MEDS: SAMSCA 30 MG PO (16:16)
[2024-03-05] MEDS: MORPHINE SULFATE 1 MG IV (16:26)
[2024-03-05] MEDS: LOVENOX 40 MG SC (17:05)
[2024-03-05] MEDS: SENOKOT-S PO (21:06)
[2024-03-05] MEDS: MELATONIN 10 MG PO (22:11)
[2024-03-05] MEDS: ROXICODONE 5 MG PO (22:14)
[2024-03-05] MEDS: TYLENOL 1000 MG PO (22:14)
[2024-03-05 23:21] VITALS: BP 101/43
[2024-03-06] MEDS: ROXICODONE 10 MG PO ×2 (05:08→19:53)
--- NOTE | 2024-03-06 05:50 | PTCARENOTE ---
Pt is again refusing wound care this AM, stating 'that usually gets done later in the afternoon. It's too early'. PRN oxycodone 10mg provided for 10/10 lower leg pain. Will pass along to dayshift RN.
[2024-03-06 05:56] LABS: COVID-19 Antigen Negative (Negative)
[2024-03-06 06:00] VITALS: BMI 38.2
[2024-03-06 07:55] VITALS: BP 106/54
[2024-03-06 08:22] LABS: Hematocrit 37.1 % (37.0-47.0); Hemoglobin 12.5 g/dL (12.0-16.0); Mean Corp Hgb Conc. 33.7 g/dL (33.0-37.0); Mean Corpuscular Hgb 29.4 pg (27.0-31.0); Mean Corpuscular Volume 87.3 fL (81.0-99.0); Mean Platelet Volume 9.5 fL (7.4-10.4); Platelet Count 332 10^3/uL (130-400); Red Blood Cell Count 4.25 10^6/uL (4.20-5.40); Red Cell Dist. Width 14.2 % (11.5-14.5); White Blood Cell Count 14.1 10^3/uL (4.8-10.8)
[2024-03-06 08:44] LABS: Blood Urea Nitrogen 54 mg/dl (7-17); Calcium 8.1 mg/dl (8.4-10.2); Chloride 78 mmol/L (98-107); Estimated Creatinine Clearance 41 ml/min; Glucose 133 mg/dl (70-99); Potassium 4.1 mmol/L (3.5-5.1); Sodium 127 mmol/L (135-145); eGFR 41.57
[2024-03-06 09:04] LABS: Carbon Dioxide 34 mmol/L (22-30)
[2024-03-06] MEDS: DESENEX/MITRAZOL/ZEASORB 1 APPLIC TOPICAL ×2 (09:23→19:43)
[2024-03-06] MEDS: MIRALAX 17 GRAMS PO (09:24)
[2024-03-06] MEDS: HYDROPHOR 1 APPLIC TOPICAL (09:25)
[2024-03-06] MEDS: AVAPRO 150 MG PO (09:26)
[2024-03-06] MEDS: SENOKOT-S 1 TABLET PO ×2 (09:26→19:42)
[2024-03-06] MEDS: BUMEX 2 MG PO (09:27)
[2024-03-06] MEDS: TOPROL XL 12.5 MG PO (09:27)
[2024-03-06] MEDS: ALDACTONE 12.5 MG PO (09:28)
--- NOTE | 2024-03-06 11:33 | CM ---
Chart reviewed, pt accepted at [facility] today after 3 pm.
Per hospitalist, will hold pt's d/c today as creatine is rising. Tentative d/c on
Updated [facility]y/[facility] admissions. Per Nicky, facility cannot hold a bed and cannot guarantee a bed once pt is stable for d/c
CM will have to follow up w/ bed availability on day of d/c
Will need ambulance transport
Plan: SNF; pending bed availability on d/c
--- NOTE | 2024-03-06 12:56 | W.PN.HOSP.TC ---
Today's Communication/Plan
-
urine studies, bladder scans, follow nephrology recs for SEVERO
Assessment / Plan
Assessment / Plan
Assessment:
Acute on chronic HFpEF
Non Ischemic Troponin Elevation
Essential HTN
- she is on Lasix 40mg PO QD at home
- last TTE 08/29 with EF 60-65%, well seated TAVR with trace AR
- trend Troponin
- maintain on irbesartan/Aldactone
- continue Bumex
SEVERO
- check workup including bladder scans, urine studies
- Nephrology following
Severe venous stasis dermatitis
Lower extremity cellulitis
- superficial wound culture growing Pseudomonas/enterococcus
- Wound care nurse evaluated, pictures reviewed. Patient have extensive dry/scabbed skin, patient underwent pedicure with aggressive scrubbing of the skin causing epithelial denuding.
- Finished short course of Ancef/doxycycline
- continue doing local wound care
- Prewound care morphine as needed dosing ordered
Essential HTN
- Maintained on irbesartan/Aldactone/bb
Hyponatremia
Minimal metabolic encephalopathy
- Presumed combination of euvolemic/hypervolemic
- fluid restriction
- s/p Samsca 15mg 03/04 and 30mg 03/05.
- follow further Nephrology recs
Metabolic alkalosis
- with diuretics use related.
CHB s/p PPM 12/30
s/p TAVR
- repeat TTE routinely
DVT ppx: Lovenox
Code: DNR
Anticipated Discharge: > 48 hours
Subjective/Interval History
-
Date of Service: March 06, 2024
no new complaints at present
Cr 1.3 today from 1.0 yesterday
Objective Data
-
Labs:
Laboratory Results
03/06/24
07:34
WBC 14.1 H
Hgb 12.5
Hct 37.1
Plt Count 332
Sodium 127 L
Potassium 4.1
Chloride 78 L
Carbon Dioxide 34 H
BUN 54 H
Creatinine 1.3 H
Glucose 133 H
Calcium 8.1 L
Vital Signs:
Vital Signs
Temp Pulse Resp BP Pulse Ox
97.3 F 67 18 106/54 96
03/06/24 07:55 03/06/24 07:55 03/06/24 07:55 03/06/24 07:55 03/06/24 09:20
I&O
03/05/24 03/06/24 03/07/24
06:59 06:59 06:59
Intake Total 250 / 250 1080 / 1080
Output Total 500 / 500 1625 / 1625
Balance -250 / -250 -545 / -545
Physical Exam
-
General: No Apparent Distress
HEENT: Normocephalic and Atraumatic
Respiratory: Negative Wheezes
Cardiac: Regular Rhythm and S1/S2
GI: Soft and Nontender
Neuro: AO x 3
Hematologic / Lymphatic: No Lymphadenopathy
Psych: Calm
Data Reviewed
-
Total Time Spent with Patient (in minutes): 42
Labs: Labs Reviewed by me
[2024-03-06 13:58] LABS: Urine Sodium 51 mmol/L (30-90)
[2024-03-06] MEDS: ROXICODONE 5 MG PO (14:13)
[2024-03-06 14:29] LABS: Urine Albumin Trace (Neg - Trace); Urine Bilirubin Negative (Negative); Urine Character Very Cloudy (Clear); Urine Color Yellow; Urine Glucose Negative (Negative); Urine Ketone Negative (Negative); Urine Leukocyte 2+ (Negative); Urine Nitrite Positive (Negative); Urine Occult Blood 2+ (Negative); Urine Urobilinogen Negative (Neg - 1+)
[2024-03-06 14:43] LABS: Urine Squamous Cell >30 /LPF (Few)
[2024-03-06 14:44] LABS: Urine Urothelial Cell 0-2 /LPF (FEW)
[2024-03-06 14:45] LABS: Urine White Cell >100 /HPF (0-5)
[2024-03-06 14:46] LABS: Urine Bacteria Many (Negative)
[2024-03-06 15:10] VITALS: BP 100/52
[2024-03-06 15:12] LABS: Body Fluid for Eosinophils 1%
[2024-03-06] MEDS: TRIAMCINOLONE ACETONIDE 0.1% CREAM 1 APPLIC TOPICAL ×2 (16:23→19:42)
[2024-03-06] MEDS: MORPHINE SULFATE 1 MG IV (16:25)
--- NOTE | 2024-03-06 16:28 | W.PN.NEPH.PH ---
Today's Communication / Plan
-
see plan
Assessment/Plan
-
Assessment
Hyponatremia acute on chronic
Heart failure preserved ejection fraction
Venous stasis
Lower extremity cellulitis
Pacemaker
Aortic stenosis status post TAVR
Edema
Plan
Hypoantremia-slow to improve despite samsca
Hyponatremia is likely a consequence of volume overload in the setting of heart failure preserved ejection fraction
mild SEVERO-hold bumex, wt likely not accurate
UA with UTI sample, fena not low , follow bladder scan 143cc, hold ARB
Maintain fluid restriction
monitor met alkalosis-improving
Bps soft end but stable, on Aldactone
Follow BMP
-
-
Date of Service: March 06, 2024
CC / HPI / ROS
-
Chief Complaint:
hyponatremia
History of Present Illness:
sodium slow to improve to 127
wt is up slightly
met alkalosis better at 34
bp soft but stable
Review of Systems:
no sob at rest, off O2
no cp
poor appetite
Labs
-
Labs:
WBC 14.1 10^3/uL (4.8-10.8) H 03/06/24 07:34
RBC 4.25 10^6/uL (4.20-5.40) 03/06/24 07:34
Hgb 12.5 g/dL (12.0-16.0) 03/06/24 07:34
Hct 37.1 % (37.0-47.0) 03/06/24 07:34
Plt Count 332 10^3/uL (130-400) 03/06/24 07:34
Sodium 127 mmol/L (135-145) L 03/06/24 07:34
Potassium 4.1 mmol/L (3.5-5.1) 03/06/24 07:34
Chloride 78 mmol/L (98-107) L 03/06/24 07:34
Carbon Dioxide 34 mmol/L (22-30) H 03/06/24 07:34
BUN 54 mg/dl (7-17) H 03/06/24 07:34
Creatinine 1.3 mg/dL (0.6-1.0) H 03/06/24 07:34
eGFR 41.57 03/06/24 07:34
Glucose 133 mg/dl (70-99) H 03/06/24 07:34
Calcium 8.1 mg/dl (8.4-10.2) L 03/06/24 07:34
Ccf-C-Dtsahfxoxyz Pept 1670 pg/ml 03/02/24 06:44
Albumin 3.0 g/dl (3.5-5.0) L 02/25/24 09:47
Physical Exam
-
Vital Signs:
Vital Signs
Temp Pulse Resp BP Pulse Ox
97.8 F 68 22 100/52 96
03/06/24 15:10 03/06/24 15:10 03/06/24 15:10 03/06/24 15:10 03/06/24 15:10
Cardiovascular:: Regular rate and rhythm
Respiratory:: Bilateral: CTA
Lung Excursion:: Normal
Abdomen:: Nontender and Soft
Extremity Edema:: +1: Bilateral: (trace)
Meeks Catheter: No
[2024-03-06] MEDS: LOVENOX 40 MG SC (17:20)
[2024-03-06] MEDS: MELATONIN 10 MG PO (21:21)
[2024-03-06 23:34] VITALS: BP 118/61
[2024-03-07 05:55] VITALS: BMI 37.8
[2024-03-07] MEDS: ROXICODONE 10 MG PO ×3 (06:06→20:36)
[2024-03-07 07:00] VITALS: BP 105/58
[2024-03-07 07:53] LABS: Hematocrit 39.2 % (37.0-47.0); Hemoglobin 12.9 g/dL (12.0-16.0); Mean Corp Hgb Conc. 32.9 g/dL (33.0-37.0); Mean Corpuscular Hgb 28.7 pg (27.0-31.0); Mean Corpuscular Volume 87.3 fL (81.0-99.0); Mean Platelet Volume 9.4 fL (7.4-10.4); Platelet Count 330 10^3/uL (130-400); Red Blood Cell Count 4.49 10^6/uL (4.20-5.40); Red Cell Dist. Width 14.1 % (11.5-14.5)
[2024-03-07 08:10] LABS: Blood Urea Nitrogen 47 mg/dl (7-17); Calcium 8.5 mg/dl (8.4-10.2); Chloride 79 mmol/L (98-107); Estimated Creatinine Clearance 49 ml/min; Glucose 130 mg/dl (70-99); Potassium 4.1 mmol/L (3.5-5.1); Sodium 127 mmol/L (135-145)
[2024-03-07 08:23] LABS: Carbon Dioxide 36 mmol/L (22-30)
[2024-03-07] MEDS: DESENEX/MITRAZOL/ZEASORB 1 APPLIC TOPICAL ×2 (09:24→20:24)
[2024-03-07] MEDS: TOPROL XL 12.5 MG PO (09:25)
[2024-03-07] MEDS: ALDACTONE 12.5 MG PO (09:25)
[2024-03-07] MEDS: MIRALAX 17 GRAMS PO (09:25)
[2024-03-07] MEDS: SENOKOT-S 1 TABLET PO ×2 (09:25→20:25)
[2024-03-07] MEDS: STERILE WATER FOR INJECTION 10 ML IV ×2 (09:26→21:50)
[2024-03-07] MEDS: TRIAMCINOLONE ACETONIDE 0.1% CREAM 1 APPLIC TOPICAL ×2 (09:26→20:26)
[2024-03-07] MEDS: MAXIPIME 1000 MG IV ×2 (09:26→21:50)
[2024-03-07] MEDS: HYDROPHOR 1 APPLIC TOPICAL (09:27)
--- NOTE | 2024-03-07 10:59 | W.PN.NEPH.PH ---
Today's Communication / Plan
-
diurese
Assessment/Plan
-
Assessment
Hyponatremia acute on chronic
Heart failure preserved ejection fraction
Venous stasis
Lower extremity cellulitis
Pacemaker
Aortic stenosis status post TAVR
Edema
Plan
restart bumex 2mg daily to start
follow BMP
continue FR
may need diamox
-
-
Date of Service: March 07, 2024
CC / HPI / ROS
-
Chief Complaint:
hyponatremia
History of Present Illness:
sodium slow to improve to 127 stable
met alkalosis persists 36
BP stable
Cr own to 1.1
Review of Systems:
no sob at rest, off O2
no cp
poor appetite
Labs
-
Labs:
WBC 13.0 10^3/uL (4.8-10.8) H 03/07/24 06:52
RBC 4.49 10^6/uL (4.20-5.40) 03/07/24 06:52
Hgb 12.9 g/dL (12.0-16.0) 03/07/24 06:52
Hct 39.2 % (37.0-47.0) 03/07/24 06:52
Plt Count 330 10^3/uL (130-400) 03/07/24 06:52
Sodium 127 mmol/L (135-145) L 03/07/24 06:52
Potassium 4.1 mmol/L (3.5-5.1) 03/07/24 06:52
Chloride 79 mmol/L (98-107) L 03/07/24 06:52
Carbon Dioxide 36 mmol/L (22-30) H 03/07/24 06:52
BUN 47 mg/dl (7-17) H 03/07/24 06:52
Creatinine 1.1 mg/dL (0.6-1.0) H 03/07/24 06:52
eGFR 50.80 03/07/24 06:52
Glucose 130 mg/dl (70-99) H 03/07/24 06:52
Calcium 8.5 mg/dl (8.4-10.2) 03/07/24 06:52
Uor-G-Wueeivghabv Pept 1670 pg/ml 03/02/24 06:44
Albumin 3.0 g/dl (3.5-5.0) L 02/25/24 09:47
Physical Exam
-
Vital Signs:
Vital Signs
Temp Pulse Resp BP Pulse Ox
98.4 F 74 20 105/58 100
03/07/24 07:00 03/07/24 07:00 03/07/24 07:00 03/07/24 07:00 03/07/24 07:00
Cardiovascular:: Regular rate and rhythm
Respiratory:: Bilateral: Coarse
Lung Excursion:: Normal
Abdomen:: Nontender and Soft
Bowel Sounds:: Normal
Extremity Edema:: +3: Bilateral:
[2024-03-07 11:30] VITALS: O2SAT 95
--- NOTE | 2024-03-07 12:05 | W.PN.HOSP.TC ---
Today's Communication/Plan
-
Cefepime for UTI tx pending cultures
follow Nephrology recs
Assessment / Plan
Assessment / Plan
Assessment:
Acute on chronic HFpEF
Non Ischemic Troponin Elevation
Essential HTN
- she is on Lasix 40mg PO QD at home
- last TTE 08/29 with EF 60-65%, well seated TAVR with trace AR
- trend Troponin
- continue Aldactone
- Bumex/ARB on hold
SEVERO
- Cr 1.1 from 1.3 - off diuretic/ARB
- Nephrology following
Severe venous stasis dermatitis
Lower extremity cellulitis
- superficial wound culture growing Pseudomonas/enterococcus
- Wound care nurse evaluated, pictures reviewed. Patient have extensive dry/scabbed skin, patient underwent pedicure with aggressive scrubbing of the skin causing epithelial denuding.
- Finished short course of Ancef/doxycycline
- continue doing local wound care
- Prewound care morphine as needed dosing ordered
UTI
- start Cefepime, follow culturse
Essential HTN
- continue Aldactone/BB
- Bumex/ARB on hold
Hyponatremia
Minimal metabolic encephalopathy
- Presumed combination of euvolemic/hypervolemic
- fluid restriction
- s/p Samsca 15mg 03/04 and 30mg 03/05.
- follow further Nephrology recs
Metabolic alkalosis
- with diuretics use related.
CHB s/p PPM 12/30
s/p TAVR
- repeat TTE routinely
DVT ppx: Lovenox
Code: DNR
Anticipated Discharge: > 48 hours
Subjective/Interval History
-
Date of Service: March 07, 2024
no new complaints at present
Objective Data
-
Labs:
Laboratory Results
03/07/24
06:52
WBC 13.0 H
Hgb 12.9
Hct 39.2
Plt Count 330
Sodium 127 L
Potassium 4.1
Chloride 79 L
Carbon Dioxide 36 H
BUN 47 H
Creatinine 1.1 H
Glucose 130 H
Calcium 8.5
Vital Signs:
Vital Signs
Temp Pulse Resp BP Pulse Ox
98.4 F 74 20 105/58 100
03/07/24 07:00 03/07/24 07:00 03/07/24 07:00 03/07/24 07:00 03/07/24 07:00
I&O
03/06/24 03/07/24 03/08/24
06:59 06:59 06:59
Intake Total 1080 / 1080 960 / 960
Output Total 1625 / 1625 2150 / 2150
Balance -545 / -545 -1190 / -1190
Physical Exam
-
General: No Apparent Distress
HEENT: Normocephalic and Atraumatic
Respiratory: Negative Wheezes
Cardiac: Regular Rhythm and S1/S2
GI: Soft
Genito-urinary: No Costovertebral Tender
Neuro: AO x 3
Hematologic / Lymphatic: No Lymphadenopathy
Psych: Calm
Data Reviewed
-
Total Time Spent with Patient (in minutes): 41
Labs: Labs Reviewed by me
[2024-03-07] MEDS: ROXICODONE 5 MG PO (14:35)
[2024-03-07] MEDS: MORPHINE SULFATE 1 MG IV (15:03)
[2024-03-07 15:23] VITALS: BP 127/72
[2024-03-07] MEDS: LOVENOX 40 MG SC (17:00)
--- NOTE | 2024-03-07 17:24 | CM ---
Plan is for skilled placement. plan was for [facility] needs follow up.
Plan; Skilled placement.
[2024-03-07] MEDS: MELATONIN 10 MG PO (22:18)
[2024-03-07 23:44] VITALS: BP 113/54
[2024-03-08] MEDS: ROXICODONE 10 MG PO ×3 (05:50→21:15)
[2024-03-08 05:53] VITALS: BMI 37.9
[2024-03-08 07:47] LABS: Hematocrit 36.9 % (37.0-47.0); Hemoglobin 12.4 g/dL (12.0-16.0); Mean Corp Hgb Conc. 33.6 g/dL (33.0-37.0); Mean Corpuscular Hgb 29.2 pg (27.0-31.0); Mean Corpuscular Volume 86.8 fL (81.0-99.0); Mean Platelet Volume 9.6 fL (7.4-10.4); Platelet Count 305 10^3/uL (130-400); Red Blood Cell Count 4.25 10^6/uL (4.20-5.40); Red Cell Dist. Width 14.1 % (11.5-14.5); White Blood Cell Count 13.1 10^3/uL (4.8-10.8)
[2024-03-08 07:55] VITALS: BP 115/61
[2024-03-08 08:06] LABS: Blood Urea Nitrogen 42 mg/dl (7-17); Calcium 8.6 mg/dl (8.4-10.2); Chloride 80 mmol/L (98-107); Estimated Creatinine Clearance 67 ml/min; Glucose 128 mg/dl (70-99); Potassium 4.4 mmol/L (3.5-5.1); Sodium 125 mmol/L (135-145); eGFR > 60.00
[2024-03-08 08:28] LABS: Carbon Dioxide 34 mmol/L (22-30)
[2024-03-08] MEDS: MIRALAX 17 GRAMS PO (09:27)
[2024-03-08] MEDS: TOPROL XL 12.5 MG PO (09:28)
[2024-03-08] MEDS: TRIAMCINOLONE ACETONIDE 0.1% CREAM 1 APPLIC TOPICAL ×2 (09:28→21:16)
[2024-03-08] MEDS: STERILE WATER FOR INJECTION 10 ML IV ×2 (09:28→22:08)
[2024-03-08] MEDS: MAXIPIME 1000 MG IV ×2 (09:28→22:08)
[2024-03-08] MEDS: ALDACTONE 12.5 MG PO (09:28)
[2024-03-08] MEDS: SENOKOT-S 1 TABLET PO (09:28)
[2024-03-08] MEDS: DESENEX/MITRAZOL/ZEASORB 1 APPLIC TOPICAL ×2 (09:29→21:15)
[2024-03-08] MEDS: HYDROPHOR 1 APPLIC TOPICAL (09:29)
--- NOTE | 2024-03-08 09:42 | W.PN.HOSP.TC ---
Today's Communication/Plan
-
continue Bumex
follow nephrology recs
Cefepime, pending urine culture
Assessment / Plan
Assessment / Plan
Assessment:
Acute on chronic HFpEF
Non Ischemic Troponin Elevation
Essential HTN
- she is on Lasix 40mg PO QD at home
- last TTE 08/29 with EF 60-65%, well seated TAVR with trace AR
- continue Aldactone
- ARB on hold
- continue Bumex
SEVERO
- Cr now 0.8
- continue Bumex, off ARB
- Nephrology following
Severe venous stasis dermatitis
Lower extremity cellulitis
- superficial wound culture growing Pseudomonas/enterococcus
- Wound care nurse evaluated, pictures reviewed. Patient have extensive dry/scabbed skin, patient underwent pedicure with aggressive scrubbing of the skin causing epithelial denuding.
- Finished short course of Ancef/doxycycline
- continue doing local wound care
- Pre-wound care morphine as needed dosing ordered
Gram negative UTI
- continue Cefepime, day 2 pending culture
Essential HTN
- continue Aldactone/BB
- ARB on hold
Hyponatremia
Minimal metabolic encephalopathy
- Presumed combination of euvolemic/hypervolemic, also ADH mediated by hypotension (but not SIADH)
- fluid restriction
- s/p Samsca 15mg 03/04 and 30mg 03/05.
- Nephrology following
Metabolic alkalosis
- with diuretics use related.
CHB s/p PPM 12/30
s/p TAVR
- repeat TTE routinely
DVT ppx: Lovenox
Code: DNR
Anticipated Discharge: 24 - 48 hours
Subjective/Interval History
-
Date of Service: March 08, 2024
no new complaints
Objective Data
-
Labs:
Laboratory Results
03/08/24
07:23
WBC 13.1 H
Hgb 12.4
Hct 36.9 L
Plt Count 305
Sodium 125 L
Potassium 4.4
Chloride 80 L
Carbon Dioxide 34 H
BUN 42 H
Creatinine 0.8
Glucose 128 H
Calcium 8.6
Vital Signs:
Vital Signs
Temp Pulse Resp BP Pulse Ox
97.4 F 66 22 115/61 92
03/08/24 07:55 03/08/24 07:55 03/08/24 07:55 03/08/24 07:55 03/08/24 07:55
I&O
03/07/24 03/08/24 03/09/24
06:59 06:59 06:59
Intake Total 960 / 960 840 / 840
Output Total 2150 / 2150 1000 / 1000
Balance -1190 / -1190 -160 / -160
Physical Exam
-
General: No Apparent Distress
HEENT: Normocephalic and Atraumatic
Respiratory: Negative Wheezes
Cardiac: Regular Rhythm and S1/S2
GI: Soft and Nontender
Genito-urinary: No Costovertebral Tender
Musculoskeletal: No Edema
Neuro: AO x 3
Psych: Calm
Data Reviewed
-
Total Time Spent with Patient (in minutes): 42
Labs: Labs Reviewed by me
--- NOTE | 2024-03-08 10:00 | W.PN.NEPH.PH ---
Today's Communication / Plan
-
Samsca
Assessment/Plan
-
Assessment
Hyponatremia acute on chronic
Heart failure preserved ejection fraction
Venous stasis
Lower extremity cellulitis
Pacemaker
Aortic stenosis status post TAVR
Edema
Plan
bumex 2mg daily to start
follow BMP
continue FR
Samsca
-
-
Date of Service: March 08, 2024
CC / HPI / ROS
-
Chief Complaint:
hyponatremia
History of Present Illness:
sodium down to 125
met alkalosis persists 34
BP stable
Cr down to 2.8
Review of Systems:
no sob at rest, off O2
no cp
Labs
-
Labs:
WBC 13.1 10^3/uL (4.8-10.8) H 03/08/24 07:23
RBC 4.25 10^6/uL (4.20-5.40) 03/08/24 07:23
Hgb 12.4 g/dL (12.0-16.0) 03/08/24 07:23
Hct 36.9 % (37.0-47.0) L 03/08/24 07:23
Plt Count 305 10^3/uL (130-400) 03/08/24 07:23
Sodium 125 mmol/L (135-145) L 03/08/24 07:23
Potassium 4.4 mmol/L (3.5-5.1) 03/08/24 07:23
Chloride 80 mmol/L (98-107) L 03/08/24 07:23
Carbon Dioxide 34 mmol/L (22-30) H 03/08/24 07:23
BUN 42 mg/dl (7-17) H 03/08/24 07:23
Creatinine 0.8 mg/dL (0.6-1.0) 03/08/24 07:23
eGFR > 60.00 03/08/24 07:23
Glucose 128 mg/dl (70-99) H 03/08/24 07:23
Calcium 8.6 mg/dl (8.4-10.2) 03/08/24 07:23
Mfc-P-Uosotxhtlvb Pept 1670 pg/ml 03/02/24 06:44
Albumin 3.0 g/dl (3.5-5.0) L 02/25/24 09:47
Physical Exam
-
Vital Signs:
Vital Signs
Temp Pulse Resp BP Pulse Ox
97.4 F 66 22 115/61 92
03/08/24 07:55 03/08/24 07:55 03/08/24 07:55 03/08/24 07:55 03/08/24 07:55
Cardiovascular:: Regular rate and rhythm
Respiratory:: Bilateral: Coarse
Lung Excursion:: Normal
Abdomen:: Nontender and Soft
Bowel Sounds:: Normal
Extremity Edema:: +2: Bilateral:
[2024-03-08] MEDS: SAMSCA 15 MG PO (11:19)
[2024-03-08 15:00] VITALS: BP 135/74
[2024-03-08] MEDS: MORPHINE SULFATE 1 MG IV (15:31)
--- NOTE | 2024-03-08 15:57 | CM ---
Patient has been accepted at [facility] and bed is available tomorrow at [facility] for patient. No Auth, Needs COVID
Plan; Skilled placement at [facility].
[2024-03-08] MEDS: LOVENOX 40 MG SC (17:13)
[2024-03-08] MEDS: SENOKOT-S PO ×2 (21:15→21:22)
[2024-03-08] MEDS: MELATONIN 10 MG PO (22:08)
--- NOTE | 2024-03-08 23:00 | PTCARENOTE ---
Pt agreeable to having purewick removed d/t ucx growing bacteria. Purewick removed by this [facility] underwriter.
[2024-03-08 23:47] VITALS: BP 121/70
[2024-03-09 06:00] VITALS: BMI 38.6
[2024-03-09] MEDS: ROXICODONE 10 MG PO ×2 (06:01→22:03)
[2024-03-09 07:43] LABS: Hematocrit 37.4 % (37.0-47.0); Hemoglobin 12.4 g/dL (12.0-16.0); Mean Corp Hgb Conc. 33.2 g/dL (33.0-37.0); Mean Corpuscular Volume 87.6 fL (81.0-99.0); Mean Platelet Volume 9.4 fL (7.4-10.4); Platelet Count 307 10^3/uL (130-400); Red Blood Cell Count 4.27 10^6/uL (4.20-5.40); Red Cell Dist. Width 14.1 % (11.5-14.5); White Blood Cell Count 10.4 10^3/uL (4.8-10.8)
[2024-03-09 07:44] VITALS: BP 130/58
[2024-03-09 08:17] LABS: Blood Urea Nitrogen 30 mg/dl (7-17); Calcium 8.6 mg/dl (8.4-10.2); Carbon Dioxide 38 mmol/L (22-30); Chloride 83 mmol/L (98-107); Estimated Creatinine Clearance 77 ml/min; Glucose 119 mg/dl (70-99); Potassium 4.1 mmol/L (3.5-5.1); Sodium 126 mmol/L (135-145); eGFR > 60.00
[2024-03-09] MEDS: MIRALAX 17 GRAMS PO (09:37)
[2024-03-09] MEDS: ALDACTONE 12.5 MG PO (09:42)
[2024-03-09] MEDS: TOPROL XL 12.5 MG PO (09:42)
[2024-03-09] MEDS: SENOKOT-S 1 TABLET PO ×2 (09:42→21:50)
[2024-03-09] MEDS: BUMEX 2 MG PO ×2 (09:42→18:31)
[2024-03-09] MEDS: DESENEX/MITRAZOL/ZEASORB 1 APPLIC TOPICAL ×2 (09:43→21:55)
[2024-03-09] MEDS: TRIAMCINOLONE ACETONIDE 0.1% CREAM 1 APPLIC TOPICAL ×2 (09:44→20:00)
[2024-03-09] MEDS: HYDROPHOR 1 APPLIC TOPICAL (09:45)
[2024-03-09] MEDS: STERILE WATER FOR INJECTION 10 ML IV ×2 (10:01→21:50)
[2024-03-09] MEDS: MAXIPIME 1000 MG IV ×2 (10:01→21:50)
--- NOTE | 2024-03-09 14:35 | CM ---
contract project manager reviewed patient's chart and per physician patient is not stable for discharge, plan is for skilled placement at [facility], rehabilitation caseworker spoke with Nicky in admissions at [facility] and provided update.
Plan; Skilled placement at [facility] when stable.
--- NOTE | 2024-03-09 14:36 | W.PN.HOSP.TC ---
Today's Communication/Plan
-
continue Cefepime for Pseudomonas UTI
follow Nephrology recs for next step in hyponatremia management
Assessment / Plan
Assessment / Plan
Assessment:
Acute on chronic HFpEF
Non Ischemic Troponin Elevation
Essential HTN
- she is on Lasix 40mg PO QD at home
- last TTE 08/29 with EF 60-65%, well seated TAVR with trace AR
- continue Aldactone
- ARB on hold
- continue Bumex; may consider IV as weights increasing
SEVERO
- Cr now 0.8
- continue Bumex, off ARB
- Nephrology following
Severe venous stasis dermatitis
Lower extremity cellulitis
- superficial wound culture growing Pseudomonas/enterococcus
- Wound care nurse evaluated, pictures reviewed. Patient have extensive dry/scabbed skin, patient underwent pedicure with aggressive scrubbing of the skin causing epithelial denuding.
- Finished short course of Ancef/doxycycline
- continue doing local wound care
- Pre-wound care morphine as needed dosing ordered
Pseudomonas UTI
- continue Cefepime, day 3/
Essential HTN
- continue Aldactone/BB
- ARB on hold
Hyponatremia
Minimal metabolic encephalopathy
- Presumed combination of euvolemic/hypervolemic, also ADH mediated by hypotension (but not SIADH)
- fluid restriction
- s/p Samsca 15mg 03/04, 30mg 03/05, 15mg 03/06.
- consider IV diuretics or 3% saline - defer to Nephrology
Metabolic alkalosis
- with diuretics use related.
CHB s/p PPM 12/30
s/p TAVR
- repeat TTE routinely
DVT ppx: Lovenox
Code: DNR
Anticipated Discharge: > 48 hours
Subjective/Interval History
-
Date of Service: March 09, 2024
no new complaints
Objective Data
-
Labs:
Laboratory Results
03/09/24
07:10
WBC 10.4
Hgb 12.4
Hct 37.4
Plt Count 307
Sodium 126 L
Potassium 4.1
Chloride 83 L
Carbon Dioxide 38 H
BUN 30 H
Creatinine 0.7
Glucose 119 H
Calcium 8.6
Vital Signs:
Vital Signs
Temp Pulse Resp BP Pulse Ox
97.7 F 67 20 130/58 95
03/09/24 07:44 03/09/24 07:44 03/09/24 07:44 03/09/24 07:44 03/09/24 07:44
I&O
03/08/24 03/09/24 03/10/24
06:59 06:59 06:59
Intake Total 840 / 840 1020 / 1020
Output Total 1000 / 1000 900 / 900
Balance -160 / -160 120 / 120
Physical Exam
-
General: No Apparent Distress
HEENT: Normocephalic and Atraumatic
Respiratory: Negative Wheezes
Cardiac: Regular Rhythm and S1/S2
GI: Soft
Genito-urinary: No Costovertebral Tender
Musculoskeletal: Edema, Right Lower Extrem and Edema, Left Lower Extrem
Neuro: AO x 3
Hematologic / Lymphatic: No Lymphadenopathy
Psych: Calm
Data Reviewed
-
Total Time Spent with Patient (in minutes): 45
Labs: Labs Reviewed by me
[2024-03-09 15:04] LABS: Urine Sodium 44 mmol/L (30-90)
[2024-03-09] MEDS: MORPHINE SULFATE 1 MG IV (16:20)
--- NOTE | 2024-03-09 17:35 | W.PN.NEPH.PH ---
Today's Communication / Plan
-
extra bunex
samsca tonight
Assessment/Plan
-
Assessment
Hyponatremia acute on chronic
Heart failure preserved ejection fraction
Venous stasis
Lower extremity cellulitis
Pacemaker
Aortic stenosis status post TAVR
Edema
Plan
wt is increasing and persistence hyponatremia
will give dose of extra bumex now and samsca later today
fena felt to be low likely is the reason for resistant hyponatremia
strict FR
monitor met alkalosis
labs in am
-
-
Date of Service: March 09, 2024
CC / HPI / ROS
-
Chief Complaint:
hyponatremia
History of Present Illness:
sodium down to 126
met alkalosis persists 38
BP stable
Cr down to 0.7
wt is up
Review of Systems:
no sob at rest, off O2
no cp
Labs
-
Labs:
WBC 10.4 10^3/uL (4.8-10.8) 03/09/24 07:10
RBC 4.27 10^6/uL (4.20-5.40) 03/09/24 07:10
Hgb 12.4 g/dL (12.0-16.0) 03/09/24 07:10
Hct 37.4 % (37.0-47.0) 03/09/24 07:10
Plt Count 307 10^3/uL (130-400) 03/09/24 07:10
Sodium 126 mmol/L (135-145) L 03/09/24 07:10
Potassium 4.1 mmol/L (3.5-5.1) 03/09/24 07:10
Chloride 83 mmol/L (98-107) L 03/09/24 07:10
Carbon Dioxide 38 mmol/L (22-30) H 03/09/24 07:10
BUN 30 mg/dl (7-17) H 03/09/24 07:10
Creatinine 0.7 mg/dL (0.6-1.0) 03/09/24 07:10
eGFR > 60.00 03/09/24 07:10
Glucose 119 mg/dl (70-99) H 03/09/24 07:10
Calcium 8.6 mg/dl (8.4-10.2) 03/09/24 07:10
Qji-E-Donulzpirjk Pept 1670 pg/ml 03/02/24 06:44
Albumin 3.0 g/dl (3.5-5.0) L 02/25/24 09:47
Physical Exam
-
Vital Signs:
Vital Signs
Temp Pulse Resp BP Pulse Ox
97.7 F 67 20 130/58 95
03/09/24 07:44 03/09/24 07:44 03/09/24 07:44 03/09/24 07:44 03/09/24 07:44
Cardiovascular:: Regular rate and rhythm
Respiratory:: Bilateral: CTA
Lung Excursion:: Normal
Abdomen:: Nontender and Soft
Extremity Edema:: +1: Bilateral:
Meeks Catheter: No
[2024-03-09] MEDS: LOVENOX 40 MG SC (17:36)
[2024-03-09] MEDS: SAMSCA 30 MG PO ×2 (18:34→22:27)
[2024-03-09 19:15] VITALS: BP 110/56
[2024-03-09] MEDS: MELATONIN 10 MG PO (21:50)
[2024-03-09 23:39] VITALS: BP 115/65
[2024-03-10 06:00] VITALS: BMI 36.7
[2024-03-10 07:00] VITALS: BP 101/61
[2024-03-10 08:40] LABS: Hematocrit 38.9 % (37.0-47.0); Hemoglobin 12.9 g/dL (12.0-16.0); Mean Corp Hgb Conc. 33.2 g/dL (33.0-37.0); Mean Corpuscular Hgb 28.9 pg (27.0-31.0); Mean Corpuscular Volume 87.2 fL (81.0-99.0); Mean Platelet Volume 9.5 fL (7.4-10.4); Platelet Count 333 10^3/uL (130-400); Red Blood Cell Count 4.46 10^6/uL (4.20-5.40); Red Cell Dist. Width 14.1 % (11.5-14.5); White Blood Cell Count 10.4 10^3/uL (4.8-10.8)
[2024-03-10 09:05] LABS: Blood Urea Nitrogen 31 mg/dl (7-17); Calcium 8.3 mg/dl (8.4-10.2); Carbon Dioxide 37 mmol/L (22-30); Chloride 83 mmol/L (98-107); Estimated Creatinine Clearance 75 ml/min; Glucose 121 mg/dl (70-99); Potassium 3.9 mmol/L (3.5-5.1); Sodium 129 mmol/L (135-145); eGFR > 60.00
[2024-03-10] MEDS: BUMEX 2 MG PO (09:12)
[2024-03-10] MEDS: MIRALAX 17 GRAMS PO (09:12)
[2024-03-10] MEDS: SENOKOT-S 1 TABLET PO (09:13)
[2024-03-10] MEDS: TOPROL XL 12.5 MG PO (09:13)
[2024-03-10] MEDS: ALDACTONE 12.5 MG PO (09:13)
[2024-03-10] MEDS: DESENEX/MITRAZOL/ZEASORB 1 APPLIC TOPICAL ×2 (09:13→21:14)
[2024-03-10] MEDS: HYDROPHOR 1 APPLIC TOPICAL (09:14)
[2024-03-10] MEDS: TRIAMCINOLONE ACETONIDE 0.1% CREAM 1 APPLIC TOPICAL ×2 (09:14→20:00)
[2024-03-10] MEDS: MAXIPIME 1000 MG IV ×2 (09:15→21:15)
[2024-03-10] MEDS: STERILE WATER FOR INJECTION 10 ML IV ×2 (09:15→21:15)
--- NOTE | 2024-03-10 10:48 | W.PN.HOSP.TC ---
Today's Communication/Plan
-
continue Cefepime for UTI
follow Nephrology recs for hyponatremia
bowel regimen
Assessment / Plan
Assessment / Plan
Assessment:
Acute on chronic HFpEF
Non Ischemic Troponin Elevation
Essential HTN
- she is on Lasix 40mg PO QD at home
- last TTE 08/29 with EF 60-65%, well seated TAVR with trace AR
- continue Aldactone
- ARB on hold
- continue Bumex dosing per Nephrology
SEVERO
- Cr now 0.8
- continue Bumex, off ARB
- Nephrology following
Severe venous stasis dermatitis
Lower extremity cellulitis
- superficial wound culture growing Pseudomonas/enterococcus
- Wound care nurse evaluated, pictures reviewed. Patient have extensive dry/scabbed skin, patient underwent pedicure with aggressive scrubbing of the skin causing epithelial denuding.
- Finished short course of Ancef/doxycycline
- continue doing local wound care
- Pre-wound care morphine as needed dosing ordered
Pseudomonas UTI
- continue Cefepime, day /
Essential HTN
- continue Aldactone/BB
- ARB on hold
Hyponatremia
Minimal metabolic encephalopathy
- Presumed combination of euvolemic/hypervolemic, also ADH mediated by hypotension (but not SIADH)
- fluid restriction
- s/p Samsca doses x 4
- Na 129 now, follow further Nephrology recs
Metabolic alkalosis
- with diuretics use related.
CHB s/p PPM 12/30
s/p TAVR
- repeat TTE routinely
Constipation
- aggressive bowel regimen
DVT ppx: Lovenox
Code: DNR
Anticipated Discharge: > 48 hours
Subjective/Interval History
-
Date of Service: March 10, 2024
Na 129
weight reported down
no BM in 1 week
Objective Data
-
Labs:
Laboratory Results
03/10/24
06:39
WBC 10.4
Hgb 12.9
Hct 38.9
Plt Count 333
Sodium 129 L
Potassium 3.9
Chloride 83 L
Carbon Dioxide 37 H
BUN 31 H
Creatinine 0.7
Glucose 121 H
Calcium 8.3 L
Vital Signs:
Vital Signs
Temp Pulse Resp BP Pulse Ox
98.2 F 68 20 101/61 94
03/10/24 07:00 03/10/24 07:00 03/10/24 07:00 03/10/24 07:00 03/10/24 07:00
I&O
03/09/24 03/10/24 03/11/24
06:59 06:59 06:59
Intake Total 1020 / 1020 1100 / 1100
Output Total 900 / 900
Balance 120 / 120 1100 / 1100
Physical Exam
-
General: No Apparent Distress
HEENT: Normocephalic and Atraumatic
Respiratory: Negative Wheezes
Cardiac: Regular Rhythm and S1/S2
GI: Soft and Nontender
Genito-urinary: No Costovertebral Tender
Musculoskeletal: Edema, Right Lower Extrem and Edema, Left Lower Extrem
Neuro: AO x 3
Hematologic / Lymphatic: No Lymphadenopathy
Psych: Calm
Data Reviewed
-
Total Time Spent with Patient (in minutes): 42
Labs: Labs Reviewed by me
[2024-03-10] MEDS: ROXICODONE 5 MG PO (10:54)
[2024-03-10] MEDS: DUPHALAC/CHRONULAC 20 GRAMS PO (12:02)
[2024-03-10 15:00] VITALS: BP 113/66
[2024-03-10] MEDS: DUPHALAC/CHRONULAC PO ×2 (15:29→21:35)
[2024-03-10] MEDS: ROXICODONE 10 MG PO ×2 (15:44→21:35)
--- NOTE | 2024-03-10 16:34 | W.PN.NEPH.PH ---
Today's Communication / Plan
-
samsca
Assessment/Plan
-
Assessment
Hyponatremia acute on chronic
Heart failure preserved ejection fraction
Venous stasis
Lower extremity cellulitis
Pacemaker
Aortic stenosis status post TAVR
Edema
Plan
hyponatremia -slightly better , redose smasca today
treat constipation
cont bumex
fena felt to be low cardiorenal? likely is the reason for resistant hyponatremia
strict FR
monitor met alkalosis
labs in am
-
-
Date of Service: March 10, 2024
CC / HPI / ROS
-
Chief Complaint:
hyponatremia
History of Present Illness:
sodium up at 1129
met alkalosis persists 37
BP stable
Cr stable 0.7
wt is down
Review of Systems:
no sob at rest, off O2
no cp
c/o constipation
Labs
-
Labs:
WBC 10.4 10^3/uL (4.8-10.8) 03/10/24 06:39
RBC 4.46 10^6/uL (4.20-5.40) 03/10/24 06:39
Hgb 12.9 g/dL (12.0-16.0) 03/10/24 06:39
Hct 38.9 % (37.0-47.0) 03/10/24 06:39
Plt Count 333 10^3/uL (130-400) 03/10/24 06:39
Sodium 129 mmol/L (135-145) L 03/10/24 06:39
Potassium 3.9 mmol/L (3.5-5.1) 03/10/24 06:39
Chloride 83 mmol/L (98-107) L 03/10/24 06:39
Carbon Dioxide 37 mmol/L (22-30) H 03/10/24 06:39
BUN 31 mg/dl (7-17) H 03/10/24 06:39
Creatinine 0.7 mg/dL (0.6-1.0) 03/10/24 06:39
eGFR > 60.00 03/10/24 06:39
Glucose 121 mg/dl (70-99) H 03/10/24 06:39
Calcium 8.3 mg/dl (8.4-10.2) L 03/10/24 06:39
Nxb-P-Wescrfvbytf Pept 1670 pg/ml 03/02/24 06:44
Albumin 3.0 g/dl (3.5-5.0) L 02/25/24 09:47
Physical Exam
-
Vital Signs:
Vital Signs
Temp Pulse Resp BP Pulse Ox
98.2 F 68 20 101/61 94
03/10/24 07:00 03/10/24 07:00 03/10/24 07:00 03/10/24 07:00 03/10/24 07:00
Cardiovascular:: Regular rate and rhythm
Respiratory:: Bilateral: CTA
Lung Excursion:: Normal
Abdomen:: Nontender and Soft
Extremity Edema:: +2: Bilateral:
Meeks Catheter: No
[2024-03-10] MEDS: SAMSCA 30 MG PO (17:16)
[2024-03-10] MEDS: LOVENOX 40 MG SC (17:17)
[2024-03-10] MEDS: MELATONIN 10 MG PO (21:14)
[2024-03-10] MEDS: MIRALAX PO (21:34)
[2024-03-10] MEDS: SENOKOT-S PO (21:35)
[2024-03-10 23:30] VITALS: BP 107/62
[2024-03-11 06:00] VITALS: BMI 36.6
[2024-03-11 07:04] VITALS: BP 140/77
[2024-03-11 07:19] LABS: Hematocrit 41.8 % (37.0-47.0); Hemoglobin 13.9 g/dL (12.0-16.0); Mean Corp Hgb Conc. 33.3 g/dL (33.0-37.0); Mean Corpuscular Hgb 29.1 pg (27.0-31.0); Mean Corpuscular Volume 87.4 fL (81.0-99.0); Mean Platelet Volume 9.5 fL (7.4-10.4); Platelet Count 328 10^3/uL (130-400); Red Blood Cell Count 4.78 10^6/uL (4.20-5.40); Red Cell Dist. Width 14.1 % (11.5-14.5); White Blood Cell Count 10.1 10^3/uL (4.8-10.8)
[2024-03-11 07:47] LABS: Blood Urea Nitrogen 33 mg/dl (7-17); Calcium 8.8 mg/dl (8.4-10.2); Carbon Dioxide 37 mmol/L (22-30); Chloride 84 mmol/L (98-107); Estimated Creatinine Clearance 75 ml/min; Glucose 109 mg/dl (70-99); Potassium 4.1 mmol/L (3.5-5.1); Sodium 128 mmol/L (135-145); eGFR > 60.00
[2024-03-11] MEDS: BUMEX 2 MG PO ×2 (09:12→16:39)
[2024-03-11] MEDS: ALDACTONE 12.5 MG PO (09:12)
[2024-03-11] MEDS: TOPROL XL 12.5 MG PO (09:12)
[2024-03-11] MEDS: HYDROPHOR 1 APPLIC TOPICAL (09:13)
[2024-03-11] MEDS: TRIAMCINOLONE ACETONIDE 0.1% CREAM 1 APPLIC TOPICAL ×2 (09:13→20:20)
[2024-03-11] MEDS: DESENEX/MITRAZOL/ZEASORB 1 APPLIC TOPICAL ×2 (09:13→20:19)
[2024-03-11] MEDS: STERILE WATER FOR INJECTION 10 ML IV ×2 (09:14→21:33)
[2024-03-11] MEDS: MAXIPIME 1000 MG IV ×2 (09:14→21:33)
[2024-03-11] MEDS: MIRALAX PO ×2 (09:19→20:17)
[2024-03-11] MEDS: SENOKOT-S PO ×2 (09:20→20:17)
--- NOTE | 2024-03-11 12:10 | W.PN.HOSP.TC ---
Today's Communication/Plan
-
increase bumex to BID
follow tomorrows BMP
if BMP improve/stable; dc Tuesday to
Assessment / Plan
Assessment / Plan
Assessment:
Acute on chronic HFpEF
Non Ischemic Troponin Elevation
Essential HTN
- she is on Lasix 40mg PO QD at home
- last TTE 08/29 with EF 60-65%, well seated TAVR with trace AR
- continue Aldactone
- ARB on hold
- continue Bumex BID dosing per Nephrology
SEVERO
- Cr now 0.8
- continue Bumex, off ARB
- Nephrology following
Severe venous stasis dermatitis
Lower extremity cellulitis
- superficial wound culture growing Pseudomonas/enterococcus
- Wound care nurse evaluated, pictures reviewed. Patient have extensive dry/scabbed skin, patient underwent pedicure with aggressive scrubbing of the skin causing epithelial denuding.
- Finished short course of Ancef/doxycycline
- continue doing local wound care
- Pre-wound care morphine as needed dosing ordered
Pseudomonas UTI
- continue Cefepime, day 5/
Essential HTN
- continue Aldactone/BB
- ARB on hold
Hyponatremia
Minimal metabolic encephalopathy
- Presumed combination of euvolemic/hypervolemic, also ADH mediated by hypotension (but not SIADH)
- fluid restriction
- s/p Samsca doses
- continue Bumex BID dosing per Nephrology
- follow BMP
Metabolic alkalosis
- with diuretics use related.
CHB s/p PPM 12/30
s/p TAVR
- repeat TTE routinely
Constipation
- continue bowel regimen
- last BM 03/10
DVT ppx: Lovenox
Code: DNR
Anticipated Discharge: Within 24 hours
Subjective/Interval History
-
Date of Service: March 11, 2024
no new complaints at present
s/p BM with lactulose dose
Objective Data
-
Labs:
Laboratory Results
03/11/24
06:37
WBC 10.1
Hgb 13.9
Hct 41.8
Plt Count 328
Sodium 128 L
Potassium 4.1
Chloride 84 L
Carbon Dioxide 37 H
BUN 33 H
Creatinine 0.7
Glucose 109 H
Calcium 8.8
Vital Signs:
Vital Signs
Temp Pulse Resp BP Pulse Ox
97.4 F 72 14 140/77 98
03/11/24 07:04 03/11/24 07:04 03/11/24 07:04 03/11/24 07:04 03/11/24 07:04
I&O
03/10/24 03/11/24 03/12/24
06:59 06:59 06:59
Intake Total 1100 / 1100 1440 / 1440
Balance 1100 / 1100 1440 / 1440
Physical Exam
-
General: No Apparent Distress
HEENT: Normocephalic and Atraumatic
Respiratory: Negative Wheezes
Cardiac: Regular Rhythm and S1/S2
GI: Soft and Nontender
Musculoskeletal: Edema, Right Lower Extrem and Edema, Left Lower Extrem
Neuro: AO x 3
Hematologic / Lymphatic: No Lymphadenopathy
Psych: Calm
Data Reviewed
-
Total Time Spent with Patient (in minutes): 42
Labs: Labs Reviewed by me
[2024-03-11] MEDS: ROXICODONE 10 MG PO ×2 (12:45→20:17)
--- NOTE | 2024-03-11 15:09 | CM ---
Chart reviewed. Per hospitalist, anticipate d/c tomorrow
Physical therapy recommended SNF. [facility] can accept
Hospitalist will order COVID test tomorrow morning
Plan: [facility] SN[facility] tomorrow
[2024-03-11] MEDS: ROXICODONE 5 MG PO (15:36)
[2024-03-11 16:01] VITALS: BP 161/87
[2024-03-11] MEDS: LOVENOX 40 MG SC (16:40)
--- NOTE | 2024-03-11 16:51 | W.PN.NEPH.PH ---
Today's Communication / Plan
-
sasmca
Assessment/Plan
-
Assessment
Hyponatremia acute on chronic
Heart failure preserved ejection fraction
Venous stasis
Lower extremity cellulitis
Pacemaker
Aortic stenosis status post TAVR
Edema
Plan
hyponatremia -down to 128r , redose smasca today
increase bumex to BID
fena felt to be low cardiorenal? likely is the reason for resistant hyponatremia
strict FR
monitor met alkalosis
labs in am
-
-
Date of Service: March 11, 2024
CC / HPI / ROS
-
Chief Complaint:
hyponatremia
History of Present Illness:
sodium down to 128
met alkalosis persists 37
BP stable
Cr stable 0.7
wt no change
Review of Systems:
no sob at rest, off O2
no cp
c/o constipation
Labs
-
Labs:
WBC 10.1 10^3/uL (4.8-10.8) 03/11/24 06:37
RBC 4.78 10^6/uL (4.20-5.40) 03/11/24 06:37
Hgb 13.9 g/dL (12.0-16.0) 03/11/24 06:37
Hct 41.8 % (37.0-47.0) 03/11/24 06:37
Plt Count 328 10^3/uL (130-400) 03/11/24 06:37
Sodium 128 mmol/L (135-145) L 03/11/24 06:37
Potassium 4.1 mmol/L (3.5-5.1) 03/11/24 06:37
Chloride 84 mmol/L (98-107) L 03/11/24 06:37
Carbon Dioxide 37 mmol/L (22-30) H 03/11/24 06:37
BUN 33 mg/dl (7-17) H 03/11/24 06:37
Creatinine 0.7 mg/dL (0.6-1.0) 03/11/24 06:37
eGFR > 60.00 03/11/24 06:37
Glucose 109 mg/dl (70-99) H 03/11/24 06:37
Calcium 8.8 mg/dl (8.4-10.2) 03/11/24 06:37
Aea-F-Jqtdevphncx Pept 1670 pg/ml 03/02/24 06:44
Albumin 3.0 g/dl (3.5-5.0) L 02/25/24 09:47
Physical Exam
-
Vital Signs:
Vital Signs
Temp Pulse Resp BP Pulse Ox
97.5 F 77 15 161/87 96
03/11/24 16:01 03/11/24 16:01 03/11/24 16:01 03/11/24 16:01 03/11/24 16:01
Cardiovascular:: Regular rate and rhythm
Respiratory:: Bilateral: CTA
Lung Excursion:: Normal
Abdomen:: Nontender and Soft
Extremity Edema:: +2: Bilateral:
Meeks Catheter: No
[2024-03-11] MEDS: SAMSCA 30 MG PO (18:37)
[2024-03-11] MEDS: MELATONIN 10 MG PO (21:32)
[2024-03-11 23:29] VITALS: BP 100/56
[2024-03-12] MEDS: ROXICODONE 10 MG PO (01:15)
[2024-03-12 05:55] VITALS: BMI 36.9
[2024-03-12 06:18] LABS: COVID-19 Antigen Negative (Negative)
[2024-03-12 07:30] VITALS: BP 90/62
[2024-03-12] MEDS: ALDACTONE 12.5 MG PO (09:02)
[2024-03-12] MEDS: MIRALAX 17 GRAMS PO (09:02)
[2024-03-12] MEDS: TOPROL XL 12.5 MG PO (09:02)
[2024-03-12] MEDS: ROXICODONE 5 MG PO ×2 (09:03→16:12)
[2024-03-12] MEDS: BUMEX 2 MG PO (09:04)
[2024-03-12] MEDS: DESENEX/MITRAZOL/ZEASORB 1 APPLIC TOPICAL (09:05)
[2024-03-12] MEDS: HYDROPHOR 1 APPLIC TOPICAL (09:06)
[2024-03-12] MEDS: TRIAMCINOLONE ACETONIDE 0.1% CREAM 1 APPLIC TOPICAL (09:06)
[2024-03-12 09:16] LABS: Hematocrit 43.5 % (37.0-47.0); Hemoglobin 14.3 g/dL (12.0-16.0); Mean Corp Hgb Conc. 32.9 g/dL (33.0-37.0); Mean Corpuscular Hgb 29.2 pg (27.0-31.0); Mean Corpuscular Volume 88.8 fL (81.0-99.0); Mean Platelet Volume 9.4 fL (7.4-10.4); Platelet Count 369 10^3/uL (130-400); Red Cell Dist. Width 14.1 % (11.5-14.5); White Blood Cell Count 10.2 10^3/uL (4.8-10.8)
[2024-03-12] MEDS: SENOKOT-S 1 TABLET PO (09:20)
[2024-03-12 10:00] LABS: Blood Urea Nitrogen 35 mg/dl (7-17); Calcium 8.9 mg/dl (8.4-10.2); Chloride 84 mmol/L (98-107); Estimated Creatinine Clearance 66 ml/min; Glucose 113 mg/dl (70-99); Potassium 4.8 mmol/L (3.5-5.1); Sodium 132 mmol/L (135-145); eGFR > 60.00
[2024-03-12 10:17] LABS: Carbon Dioxide 34 mmol/L (22-30)
--- NOTE | 2024-03-12 10:20 | W.PN.HOSP.TC ---
Today's Communication/Plan
-
Medically stable for DC to SNF. Pending bed. d/w CM
Assessment / Plan
Assessment / Plan
Assessment:
Acute on chronic HFpEF
Non Ischemic Troponin Elevation
Essential HTN
- she is on Lasix 40mg PO QD at home
- last TTE 08/29 with EF 60-65%, well seated TAVR with trace AR
- continue Aldactone
- ARB on hold
- continue Bumex BID dosing per Nephrology
SEVERO
- Cr now 0.8
- continue Bumex, off ARB
- Nephrology following
Severe venous stasis dermatitis
Lower extremity cellulitis
- superficial wound culture growing Pseudomonas/enterococcus
- Wound care nurse evaluated, pictures reviewed. Patient have extensive dry/scabbed skin, patient underwent pedicure with aggressive scrubbing of the skin causing epithelial denuding.
- Finished short course of Ancef/doxycycline
- continue doing local wound care
- Pre-wound care morphine as needed dosing ordered
Pseudomonas UTI
- continue Cefepime, day 6/
Essential HTN
- continue Aldactone/BB
- ARB stopped
Hyponatremia
Minimal metabolic encephalopathy
- Presumed combination of euvolemic/hypervolemic, also ADH mediated by hypotension (but not SIADH)
- fluid restriction
- s/p Samsca doses
- continue Bumex BID dosing per Nephrology
- follow BMP; Na 132 today
Metabolic alkalosis
- with diuretics use related.
CHB s/p PPM 12/30
s/p TAVR
- repeat TTE routinely
Constipation
- continue bowel regimen
- last BM 03/10
DVT ppx: Lovenox
Code: DNR
More than 30 minutes spent in discharge including
Final examination of the patient
Summarizing hospital stay
Instructions for continuing care to all relevant caregivers
Preparation of discharge records, prescriptions, and referral forms
Total time spent (in minutes): 41
Anticipated Discharge: Within 24 hours
Subjective/Interval History
-
Date of Service: March 12, 2024
no new complaints presently
weight is stable at 99 to 100 kg
Objective Data
-
Labs:
Laboratory Results
03/12/24
08:29
WBC 10.2
Hgb 14.3
Hct 43.5
Plt Count 369
Sodium 132 L
Potassium 4.8
Chloride 84 L
Carbon Dioxide 34 H
BUN 35 H
Creatinine 0.8
Glucose 113 H
Calcium 8.9
Vital Signs:
Vital Signs
Temp Pulse Resp BP Pulse Ox
97.5 F 69 20 128/67 93
03/12/24 07:30 03/12/24 07:30 03/12/24 07:30 03/12/24 09:04 03/12/24 07:30
I&O
03/11/24 03/12/24 03/13/24
06:59 06:59 06:59
Intake Total 1440 / 1440 1440 / 1440
Balance 1440 / 1440 1440 / 1440
Physical Exam
-
General: No Apparent Distress
HEENT: Normocephalic and Atraumatic
Respiratory: Negative Wheezes
Cardiac: Regular Rhythm and S1/S2
GI: Soft and Nontender
Musculoskeletal: No Edema
Neuro: AO x 3
Hematologic / Lymphatic: No Lymphadenopathy
Psych: Calm
Data Reviewed
-
Total Time Spent with Patient (in minutes): 42
Labs: Labs Reviewed by me
[2024-03-12] MEDS: MAXIPIME 1000 MG IV (11:36)
[2024-03-12] MEDS: STERILE WATER FOR INJECTION 10 ML IV (11:36)
--- NOTE | 2024-03-12 13:18 | CM ---
Patient has been cleared for discharge today per physician, no beds are available at [facility], referral sent to [facility] [[email or web address] and they can accepted patient cost of w/c van transport is $90, patient to pay for transportation.
Plan; Patient to transfer to [facility] today
Report [phone]
--- NOTE | 2024-03-12 13:49 | W.DS.TRANS ---
DC Summary - Alteration Tailor
-
Discharge Instructions:
Discharge Diagnosis/Procedures acute on chronic HFpEF, SEVERO with hyponatremia,
Lower extremity cellulitis (completed
antibiotics). pseudomonas UTI.
Diet Restrict fluids to 48 oz,Low Cholesterol,2 Gram
Sodium
Activity As tolerated
Bathing Restrictions None
Blood Work repeat BMP in 3-5 days
Other Services PT,OT
Specialty Instructions Weigh Daily
Instructions: *PCP/Other Straightener And Aligner Heart Failure Instructions
Stand-Alone Forms:
Changes to Home Medications: No
Discharge Medications:
DC Medications w/original date entered in [employer]
acetaminophen 500 mg tablet (Acetaminophen Extra Strength) 1,000 mg PO HSPRN PRN mild pain 08/12/22
melatonin 5 mg tablet 10 mg PO HS Sleep 08/12/22
bumetanide 2 mg tablet 2 mg PO BID@0800,1700 #60 tabs 03/12/24
metoprolol succinate 25 mg tablet,extended release 24 hr 12.5 mg (1/2 x 25 mg) PO DAILY #30 tabs 03/12/24
oxycodone 5 mg tablet 5 mg PO Q4HPRN PRN mod pain #10 tabs 03/12/24
polyethylene glycol 3350 17 gram oral powder packet 17 g PO DAILY #30 ea 03/12/24
sennosides 8.6 mg-docusate sodium 50 mg tablet 1 tab PO BID #60 tabs 03/12/24
spironolactone 25 mg tablet 12.5 mg (1/2 x 25 mg) PO DAILY #30 tabs 03/12/24
triamcinolone acetonide 0.1 % topical cream 1 applic topical BID #80 grams 03/12/24
white petrolatum 42 % topical ointment (Hydrophor) 1 applic topical DAILY #454 grams 03/12/24
Home Medication Changes
Pending Results: No
Total time spent discharging patient (in min): 41
[2024-03-12 15:29] VITALS: BP 122/64
== END 2024-03-12 16:56 | DRG 291 ==
LOC: 4 WEST ACU 16:35
PROVIDERS: Hospitalist; Student in an Organized Health Care Education/Training Program; ADMITTING PHYSICIAN Student in an Organized Health Care Education/Training Program; ATTENDING PHYSICIAN Internal Medicine; CONSULT PHYSICIAN Internal Medicine Cardiovascular Disease; CONSULT PHYSICIAN Specialist; EMERGENCY PHYSICIAN Student in an Organized Health Care Education/Training Program; FAMILY PHYSICIAN Nurse Practitioner Family
DX: I11.0 Hypertensive heart disease with heart failure (principal); G93.41 Metabolic encephalopathy; I50.33 Acute on chronic diastolic (congestive) heart failure; N17.9 Acute kidney failure, unspecified; N39.0 Urinary tract infection, site not specified; E87.1 Hypo-osmolality and hyponatremia; E87.3 Alkalosis; L03.115 Cellulitis of right lower limb; L03.116 Cellulitis of left lower limb; Z87.891 Personal history of nicotine dependence; Z66 Do not resuscitate; B96.5 Pseudomonas (aeruginosa) (mallei) (pseudomallei) as the cause of diseases classified elsewhere; I5A Non-ischemic myocardial injury (non-traumatic); G90.2 Horner's syndrome; K59.00 Constipation, unspecified
CPT/HCPCS: 71046; 73650; 80048; 80053; 80061; 81003; 81015; 81099; 82248; 82570; 83735; 83880; 84300; 84443; 84484; 85025; 85027; 87070; 87077; 87086; 87147; 87186; 87205; 87502; 87811; 93005; 93306; 96374; 97110; 97163; 97167; 97530; 97535; 99285; Q9950

== ENCOUNTER → 2024-03-15 12:23 | Outpatient (REF) | payer OTHER, MEDICARE, SELFPAY ==
[2024-03-15 12:59] LABS: Blood Urea Nitrogen 42 mg/dl (7-17); Calcium 8.7 mg/dl (8.4-10.2); Carbon Dioxide 38 mmol/L (22-30); Chloride 87 mmol/L (98-107); Glucose 107 mg/dl (70-99); Potassium 4.3 mmol/L (3.5-5.1); Sodium 128 mmol/L (135-145); eGFR > 60.00
== END ==
LOC: OLABP 12:23
PROVIDERS: ATTENDING PHYSICIAN Family Medicine
DX: I10 Essential (primary) hypertension (principal); Z95.0 Presence of cardiac pacemaker; I45.2 Bifascicular block; E87.1 Hypo-osmolality and hyponatremia; B96.5 Pseudomonas (aeruginosa) (mallei) (pseudomallei) as the cause of diseases classified elsewhere; I44.7 Left bundle-branch block, unspecified; I25.10 Atherosclerotic heart disease of native coronary artery without angina pectoris; I35.0 Nonrheumatic aortic (valve) stenosis; L03.115 Cellulitis of right lower limb; I50.30 Unspecified diastolic (congestive) heart failure; N17.9 Acute kidney failure, unspecified; N39.0 Urinary tract infection, site not specified; G93.41 Metabolic encephalopathy
CPT/HCPCS: 36415; 80048

== ENCOUNTER → 2024-03-17 11:35 | Outpatient (REF) | payer OTHER, MEDICARE, SELFPAY ==
[2024-03-17 12:53] LABS: Blood Urea Nitrogen 35 mg/dl (7-17); Calcium 8.8 mg/dl (8.4-10.2); Carbon Dioxide 31 mmol/L (22-30); Chloride 88 mmol/L (98-107); Glucose 114 mg/dl (70-99); Potassium 4.7 mmol/L (3.5-5.1); Sodium 128 mmol/L (135-145); eGFR > 60.00
== END ==
LOC: OLABP 11:35
PROVIDERS: ATTENDING PHYSICIAN Family Medicine
DX: I11.0 Hypertensive heart disease with heart failure (principal); Z95.0 Presence of cardiac pacemaker; I45.2 Bifascicular block; E87.1 Hypo-osmolality and hyponatremia; B96.5 Pseudomonas (aeruginosa) (mallei) (pseudomallei) as the cause of diseases classified elsewhere; I44.7 Left bundle-branch block, unspecified; G93.41 Metabolic encephalopathy; I25.10 Atherosclerotic heart disease of native coronary artery without angina pectoris; N39.0 Urinary tract infection, site not specified; I35.0 Nonrheumatic aortic (valve) stenosis; L03.115 Cellulitis of right lower limb; N17.9 Acute kidney failure, unspecified; I50.20 Unspecified systolic (congestive) heart failure
CPT/HCPCS: 36415; 80048

== ENCOUNTER → 2024-03-20 09:31 | Outpatient (REF) | payer OTHER, MEDICARE, SELFPAY ==
[2024-03-20 09:56] LABS: % Basophils 0.6 % (0-2); % Eosinophils 0.8 % (0-6); % Immature Granulocytes 0.4 % (0-0.5); % Monocytes 10.8 % (1.7-9.3); % Neutrophils 69.4 % (42.2-75.2); Absolute Lymphocytes 0.9 10^3/uL (1.2-3.4); Absolute Monocytes 0.6 10^3/uL (0.1-0.6); Absolute Neutrophils 3.5 10^3/uL (1.4-6.5); Hematocrit 37.8 % (37.0-47.0); Hemoglobin 13.1 g/dL (12.0-16.0); Mean Corp Hgb Conc. 34.7 g/dL (33.0-37.0); Mean Corpuscular Hgb 29.6 pg (27.0-31.0); Mean Corpuscular Volume 85.5 fL (81.0-99.0); Mean Platelet Volume 10.3 fL (7.4-10.4); Nucleated Red Blood Cells % 0 %; Platelet Count 265 10^3/uL (130-400); Red Blood Cell Count 4.42 10^6/uL (4.20-5.40); Red Cell Dist. Width 14.4 % (11.5-14.5); White Blood Cell Count 5.1 10^3/uL (4.8-10.8)
[2024-03-20 11:03] LABS: Blood Urea Nitrogen 33 mg/dl (7-17); Carbon Dioxide 34 mmol/L (22-30); Chloride 86 mmol/L (98-107); Glucose 99 mg/dl (70-99); Potassium 3.7 mmol/L (3.5-5.1); Sodium 128 mmol/L (135-145); eGFR > 60.00
== END ==
LOC: OLABP 09:31
PROVIDERS: ATTENDING PHYSICIAN Family Medicine
DX: I11.0 Hypertensive heart disease with heart failure (principal); Z95.0 Presence of cardiac pacemaker; E87.1 Hypo-osmolality and hyponatremia; B96.5 Pseudomonas (aeruginosa) (mallei) (pseudomallei) as the cause of diseases classified elsewhere; I44.7 Left bundle-branch block, unspecified; I25.10 Atherosclerotic heart disease of native coronary artery without angina pectoris; I35.0 Nonrheumatic aortic (valve) stenosis; L03.115 Cellulitis of right lower limb; N17.9 Acute kidney failure, unspecified
CPT/HCPCS: 36415; 80048; 85025

== ENCOUNTER → 2024-04-02 10:16 | Outpatient (REF) | payer OTHER, MEDICARE, SELFPAY ==
[2024-04-02 12:16] LABS: % Basophils 0.6 % (0-2); % Eosinophils 3.5 % (0-6); % Immature Granulocytes 0.4 % (0-0.5); % Monocytes 9.1 % (1.7-9.3); % Neutrophils 67.4 % (42.2-75.2); Absolute Eosinophils 0.2 10^3/uL (0-0.7); Absolute Monocytes 0.5 10^3/uL (0.1-0.6); Absolute Neutrophils 3.5 10^3/uL (1.4-6.5); Hematocrit 36.5 % (37.0-47.0); Mean Corp Hgb Conc. 32.9 g/dL (33.0-37.0); Mean Corpuscular Hgb 28.8 pg (27.0-31.0); Mean Corpuscular Volume 87.7 fL (81.0-99.0); Mean Platelet Volume 10.5 fL (7.4-10.4); Nucleated Red Blood Cells % 0 %; Platelet Count 212 10^3/uL (130-400); Red Blood Cell Count 4.16 10^6/uL (4.20-5.40); Red Cell Dist. Width 14.9 % (11.5-14.5); White Blood Cell Count 5.2 10^3/uL (4.8-10.8)
[2024-04-02 12:36] LABS: Blood Urea Nitrogen 24 mg/dl (7-17); Calcium 8.9 mg/dl (8.4-10.2); Carbon Dioxide 33 mmol/L (22-30); Chloride 91 mmol/L (98-107); Glucose 131 mg/dl (70-99); Potassium 3.5 mmol/L (3.5-5.1); Sodium 131 mmol/L (135-145); eGFR > 60.00
== END ==
LOC: OLABP 10:16
PROVIDERS: ATTENDING PHYSICIAN Family Medicine
DX: I11.0 Hypertensive heart disease with heart failure (principal); Z95.0 Presence of cardiac pacemaker; I45.2 Bifascicular block; E87.1 Hypo-osmolality and hyponatremia; I25.10 Atherosclerotic heart disease of native coronary artery without angina pectoris
CPT/HCPCS: 36415; 80048; 85025

== ENCOUNTER → 2024-04-11 10:00 | Outpatient (REF) | payer OTHER, MEDICARE, SELFPAY ==
[2024-04-11 11:04] LABS: Hematocrit 37.1 % (37.0-47.0); Hemoglobin 12.5 g/dL (12.0-16.0); Mean Corp Hgb Conc. 33.7 g/dL (33.0-37.0); Mean Corpuscular Hgb 29.3 pg (27.0-31.0); Mean Corpuscular Volume 86.9 fL (81.0-99.0); Mean Platelet Volume 11.4 fL (7.4-10.4); Platelet Count 181 10^3/uL (130-400); Red Blood Cell Count 4.27 10^6/uL (4.20-5.40); Red Cell Dist. Width 15.6 % (11.5-14.5); White Blood Cell Count 5.4 10^3/uL (4.8-10.8)
== END ==
LOC: OLABP 10:00
PROVIDERS: ATTENDING PHYSICIAN Family Medicine
DX: I11.0 Hypertensive heart disease with heart failure (principal); Z95.0 Presence of cardiac pacemaker; I45.2 Bifascicular block; E87.1 Hypo-osmolality and hyponatremia; B96.5 Pseudomonas (aeruginosa) (mallei) (pseudomallei) as the cause of diseases classified elsewhere; I44.7 Left bundle-branch block, unspecified; I25.10 Atherosclerotic heart disease of native coronary artery without angina pectoris; I35.0 Nonrheumatic aortic (valve) stenosis; N17.9 Acute kidney failure, unspecified; I50.1 Left ventricular failure, unspecified; G93.41 Metabolic encephalopathy; N39.0 Urinary tract infection, site not specified
CPT/HCPCS: 36415; 85027

== ENCOUNTER → 2024-04-12 09:10 | Outpatient (REF) | payer OTHER, MEDICARE, SELFPAY ==
[2024-04-12 11:06] LABS: % Basophils 0.6 % (0-2); % Eosinophils 3.3 % (0-6); % Immature Granulocytes 0.2 % (0-0.5); % Lymphocytes 21.7 % (20.5-51.1); % Monocytes 9.8 % (1.7-9.3); % Neutrophils 64.4 % (42.2-75.2); Absolute Eosinophils 0.2 10^3/uL (0-0.7); Absolute Monocytes 0.5 10^3/uL (0.1-0.6); Absolute Neutrophils 3.1 10^3/uL (1.4-6.5); Hematocrit 37.3 % (37.0-47.0); Hemoglobin 12.1 g/dL (12.0-16.0); Mean Corp Hgb Conc. 32.4 g/dL (33.0-37.0); Mean Corpuscular Hgb 29.2 pg (27.0-31.0); Mean Corpuscular Volume 89.9 fL (81.0-99.0); Mean Platelet Volume 10.6 fL (7.4-10.4); Nucleated Red Blood Cells % 0 %; Platelet Count 208 10^3/uL (130-400); Red Blood Cell Count 4.15 10^6/uL (4.20-5.40); Red Cell Dist. Width 15.7 % (11.5-14.5); White Blood Cell Count 4.8 10^3/uL (4.8-10.8)
== END ==
LOC: OLABP 09:10
PROVIDERS: ATTENDING PHYSICIAN Family Medicine
DX: I11.0 Hypertensive heart disease with heart failure (principal); Z95.0 Presence of cardiac pacemaker; I45.2 Bifascicular block; E87.1 Hypo-osmolality and hyponatremia; B96.5 Pseudomonas (aeruginosa) (mallei) (pseudomallei) as the cause of diseases classified elsewhere; I44.7 Left bundle-branch block, unspecified; I25.10 Atherosclerotic heart disease of native coronary artery without angina pectoris; I35.0 Nonrheumatic aortic (valve) stenosis; L03.115 Cellulitis of right lower limb; N17.9 Acute kidney failure, unspecified; G93.41 Metabolic encephalopathy; N39.0 Urinary tract infection, site not specified
CPT/HCPCS: 36415; 85025

== ENCOUNTER → 2024-04-13 14:32 | Outpatient (REF) | payer OTHER, MEDICARE, SELFPAY ==
[2024-04-13 15:27] LABS: Blood Urea Nitrogen 26 mg/dl (7-17); Calcium 9.1 mg/dl (8.4-10.2); Carbon Dioxide 30 mmol/L (22-30); Chloride 97 mmol/L (98-107); Glucose 161 mg/dl (70-99); Potassium 3.9 mmol/L (3.5-5.1); Sodium 134 mmol/L (135-145); eGFR > 60.00
== END ==
LOC: OLABP 14:32
PROVIDERS: ATTENDING PHYSICIAN Family Medicine
DX: I11.0 Hypertensive heart disease with heart failure (principal); Z95.0 Presence of cardiac pacemaker; I45.2 Bifascicular block; E87.1 Hypo-osmolality and hyponatremia; B96.5 Pseudomonas (aeruginosa) (mallei) (pseudomallei) as the cause of diseases classified elsewhere; I44.7 Left bundle-branch block, unspecified; I25.10 Atherosclerotic heart disease of native coronary artery without angina pectoris; I35.0 Nonrheumatic aortic (valve) stenosis; L03.115 Cellulitis of right lower limb; G93.41 Metabolic encephalopathy; N39.0 Urinary tract infection, site not specified
CPT/HCPCS: 36415; 80048

== ENCOUNTER → 2024-04-26 12:45 | Outpatient (REF) | payer OTHER, MEDICARE, SELFPAY | LOC: WOUND 12:45 | PROVIDERS: ATTENDING PHYSICIAN Surgery; FAMILY PHYSICIAN Nurse Practitioner Family | DX: I87.311 Chronic venous hypertension (idiopathic) with ulcer of right lower extremity (principal); L97.312 Non-pressure chronic ulcer of right ankle with fat layer exposed; I87.2 Venous insufficiency (chronic) (peripheral); I87.8 Other specified disorders of veins; G62.9 Polyneuropathy, unspecified; E66.01 Morbid (severe) obesity due to excess calories; I25.10 Atherosclerotic heart disease of native coronary artery without angina pectoris; I25.2 Old myocardial infarction | CPT/HCPCS: 29581; 99213 ==

== ENCOUNTER → 2024-05-03 10:34 | Outpatient (REF) | payer OTHER, MEDICARE, SELFPAY | LOC: WOUND 10:34 | PROVIDERS: ATTENDING PHYSICIAN Surgery; FAMILY PHYSICIAN Nurse Practitioner Family | DX: I87.311 Chronic venous hypertension (idiopathic) with ulcer of right lower extremity (principal); L97.312 Non-pressure chronic ulcer of right ankle with fat layer exposed; I87.2 Venous insufficiency (chronic) (peripheral); I87.8 Other specified disorders of veins; G62.9 Polyneuropathy, unspecified; E66.01 Morbid (severe) obesity due to excess calories; I25.10 Atherosclerotic heart disease of native coronary artery without angina pectoris | CPT/HCPCS: 29581; 99213 ==

== ENCOUNTER → 2024-05-10 10:30 | Outpatient (REF) | payer OTHER, MEDICARE, SELFPAY | LOC: WOUND 10:30 | PROVIDERS: ATTENDING PHYSICIAN Surgery; FAMILY PHYSICIAN Nurse Practitioner Family | DX: L89.313 Pressure ulcer of right buttock, stage 3 (principal); I87.2 Venous insufficiency (chronic) (peripheral); I87.8 Other specified disorders of veins; G62.9 Polyneuropathy, unspecified; E66.01 Morbid (severe) obesity due to excess calories; I25.10 Atherosclerotic heart disease of native coronary artery without angina pectoris; I25.2 Old myocardial infarction | CPT/HCPCS: 97597 ==

== ENCOUNTER → 2024-05-24 09:15 | Outpatient (REF) | payer MEDICARE, OTHER, SELFPAY ==
[2024-05-24 10:04] LABS: % Basophils 0.4 % (0-2); % Eosinophils 2.9 % (0-6); % Immature Granulocytes 0.3 % (0-0.5); % Lymphocytes 16.3 % (20.5-51.1); % Monocytes 9.1 % (1.7-9.3); Absolute Eosinophils 0.2 10^3/uL (0-0.7); Absolute Lymphocytes 1.1 10^3/uL (1.2-3.4); Absolute Monocytes 0.6 10^3/uL (0.1-0.6); Hematocrit 41.9 % (37.0-47.0); Hemoglobin 13.9 g/dL (12.0-16.0); Mean Corp Hgb Conc. 33.2 g/dL (33.0-37.0); Mean Corpuscular Hgb 29.8 pg (27.0-31.0); Mean Corpuscular Volume 89.7 fL (81.0-99.0); Mean Platelet Volume 10.1 fL (7.4-10.4); Nucleated Red Blood Cells % 0 %; Platelet Count 238 10^3/uL (130-400); Red Blood Cell Count 4.67 10^6/uL (4.20-5.40); Red Cell Dist. Width 15.1 % (11.5-14.5)
[2024-05-24 10:45] LABS: NT-proBNP 1720 pg/ml
[2024-05-24 11:22] LABS: ALT (SGPT) 29 U/L (0-35); AST (SGOT) 27 U/L (14-36); Albumin 4.3 g/dl (3.5-5.0); Alkaline Phosphatase 100 U/L (38-126); Blood Urea Nitrogen 33 mg/dl (7-17); Calcium 9.7 mg/dl (8.4-10.2); Carbon Dioxide 32 mmol/L (22-30); Chloride 95 mmol/L (98-107); Glucose 80 mg/dl (70-99); Potassium 4.1 mmol/L (3.5-5.1); Sodium 137 mmol/L (135-145); Total Bilirubin 0.5 mg/dl (0.2-1.3); Total Protein 7.1 g/dl (6.3-8.2); eGFR > 60.00
== END ==
LOC: REG 09:15
PROVIDERS: ATTENDING PHYSICIAN Internal Medicine Cardiovascular Disease
DX: I10 Essential (primary) hypertension (principal); I25.10 Atherosclerotic heart disease of native coronary artery without angina pectoris; K58.9 Irritable bowel syndrome, unspecified
CPT/HCPCS: 36415; 80053; 83880; 85025

== ENCOUNTER → 2024-05-24 10:34 | Outpatient (REF) | payer MEDICARE, OTHER, SELFPAY | LOC: WOUND 10:34 | PROVIDERS: ATTENDING PHYSICIAN Surgery; FAMILY PHYSICIAN Nurse Practitioner Family | DX: L89.313 Pressure ulcer of right buttock, stage 3 (principal); I87.2 Venous insufficiency (chronic) (peripheral); I87.8 Other specified disorders of veins; G62.9 Polyneuropathy, unspecified; E66.01 Morbid (severe) obesity due to excess calories; I25.10 Atherosclerotic heart disease of native coronary artery without angina pectoris; I25.2 Old myocardial infarction | CPT/HCPCS: 11042 ==

== ENCOUNTER → 2024-06-07 10:36 | Outpatient (REF) | payer MEDICARE, OTHER, SELFPAY | LOC: WOUND 10:36 | PROVIDERS: ATTENDING PHYSICIAN Surgery; FAMILY PHYSICIAN Nurse Practitioner Family | DX: L89.313 Pressure ulcer of right buttock, stage 3 (principal); I87.2 Venous insufficiency (chronic) (peripheral); I87.8 Other specified disorders of veins; G62.9 Polyneuropathy, unspecified; E66.01 Morbid (severe) obesity due to excess calories; I25.10 Atherosclerotic heart disease of native coronary artery without angina pectoris; I25.2 Old myocardial infarction | CPT/HCPCS: 99213 ==

== ENCOUNTER → 2024-06-21 11:21 | Outpatient (REF) | payer MEDICARE, OTHER, SELFPAY | LOC: WOUND 11:21 | PROVIDERS: ATTENDING PHYSICIAN Surgery; FAMILY PHYSICIAN Nurse Practitioner Family | DX: L89.313 Pressure ulcer of right buttock, stage 3 (principal); I87.2 Venous insufficiency (chronic) (peripheral); I87.8 Other specified disorders of veins; G62.9 Polyneuropathy, unspecified; E66.01 Morbid (severe) obesity due to excess calories; I25.10 Atherosclerotic heart disease of native coronary artery without angina pectoris; I25.2 Old myocardial infarction | CPT/HCPCS: 99212 ==